=== PATIENT | male | born 1960 | race Caucasian/White ===

== ENCOUNTER 2018-01-30 07:28 | Emergency (ER) | payer BC, SELFPAY ==
[2018-01-30 07:30] VITALS: BP 151/92; PULSE 79; RESP 18; TEMP 36.4; O2SAT 98
--- NOTE | 2018-01-30 07:40 | W.ED.GENAD ---
Discharge Plan Disposition Patient Disposition: HOME Condition: Good Discharge Details Chief Complaint: RespSymp Clinical Impression: Cough Primary Care Provider: Edwin Astudillo ED Provider: Richmond Cronin Home Meds and New Rx's Prescriptions: New doxycycline hyclate 100 mg tablet 100 mg PO BID Qty: 14 RF: 0 Continue prednisone 20 mg tablet 40 mg PO DAILY Qty: 8 RF: 0 omeprazole 40 MG capsule,delayed release(DR/EC) 40 mg PO BID 90 Days Qty: 180 RF: 3 Discharge Instructions Instructions: Acute Cough (ED) Medical Decision Making 57 yo male who denies chronic medical problems, quit smoking over 30 years ago, who comes in with cough for 2 weeks. Was put on steroids and took 3 days of this but felt wired and couldn't sleep so stopped. Denies travel, fevers or other symptoms. He has clear lungs and is speaking in full setntences on exam, does have small crackle when rll is auscultate. Suspect viral uri but given lung exam findings will initiate abx to cover for possible cap. Advised f/u with pcp if not improving next week and return precautions given Differential Diagnosis cough, uri, pna HPI General Mode of arrival: ambulatory. Date/Time Provider Initiated Documentation: 01/30/18 07:32. Limitations to Documentation: no limitations. Information obtained by: patient. History of Present Illness 57 year old M presents to the emergency department with the chief complaint of cough, described as moderate, with intensity rated at 5. Quality is described as aching, Patient started experiencing this week(s) (2) and it has been constant. No relieving factors improve symptom(s), No exacerbating factors reported . Patient notes no other symptoms.. Related Data Home Medications Medication Instructions Recorded Confirmed omeprazole 40 mg PO BID 90 Days #180 tab-cap 11/24/17 01/30/18 prednisone 20 mg tablet 40 mg PO DAILY #8 tab 01/24/18 01/30/18 doxycycline hyclate 100 mg PO BID #14 tab 01/30/18 Previous Rx's Medication Instructions Recorded omeprazole 40 mg PO BID 90 Days #180 tab-cap 11/24/17 prednisone 20 mg tablet 40 mg PO DAILY #8 tab 01/24/18 doxycycline hyclate 100 mg PO BID #14 tab 01/30/18 Allergies Allergy/AdvReac Type Severity Reaction Status Date / Time No Known Allergies Allergy Verified 01/30/18 07:37 General Stated Complaint: RespSymp MARTITA: 4 Review of Systems Review of Systems All systems reviewed & are unremarkable except as noted in HPI and below Constitutional Denies chills and Denies fever(s) ENT Denies change in voice Cardiovascular Denies chest pain and Denies dyspnea Respiratory Denies dyspnea Gastrointestinal Denies abdominal pain, Denies nausea and Denies vomiting Genitourinary Denies dysuria Musculoskeletal Denies joint swelling Integumentary/Breasts Denies rash Endocrine Denies cold intolerance [facility] Family History Mother Personal history of malignant neoplasm Father Heart disease Myocardial infarction Maternal Uncle Personal history of malignant neoplasm Maternal Cousin Personal history of malignant neoplasm Sister No problems noted. Brother No problems noted. Grandfather No problems noted. Grandfather No problems noted. Grandmother No problems noted. Grandmother No problems noted. Maternal Aunt Personal history of malignant neoplasm Son No problems noted. Daughter No problems noted. Daughter No problems noted. Medical History Eczema Family history of colon cancer GERD (gastroesophageal reflux disease) Insomnia chronic back pain tubular adenomas Social History household members: spouse current occupational status: employed current occupation: [employer] pets and animals: Yes pets and animals: dog(s) frequency: 3-4 times per week duration: 45-60 minutes/day Smoking/Tobacco Use Status: Former Tobacco Use alcohol intake: never substance use type: does not use shannon/yarsanism: No preference special shannon needs: No seatbelt use: always helmet use: Yes water heater temp set < 120 deg: Yes Surgical History Amputation Arthroplasty of knee Colonoscopy - IV Sedation Colonoscopy - MAC (07/25/17) EGD - MAC (07/25/17) Exam Const General: no acute distress Orientation: alert HENMT Head: normal to inspection Ears: external ears normal General nose exam: external nose normal Mouth: moist mucous membranes Eyes General: appearance normal, both eyes and all related structures Neck Neck: normal visual inspection Resp Effort & Inspection: normal respiratory effort and able to speak in complete sentences Cardio Rate: regular rate Skin General skin exam: no rashes or lesions noted Neuro General: alert and oriented x3 Extrem General: normal to inspection Psych Mental Status: mental status grossly normal Course Vital Signs Temperature 36.4 C L 01/30/18 07:30 Pulse 79 01/30/18 07:30 Respiratory Rate 18 01/30/18 07:30 Blood Pressure 151/92 H 01/30/18 07:30 Pulse Oximetry 98 01/30/18 07:30 Temperature 36.4 C L 01/30/18 07:30 Temperature Source Skin 01/30/18 07:30 Pulse 79 01/30/18 07:30 Respiratory Rate 18 01/30/18 07:30 Respiratory Effort 01/30/18 07:35 Respiratory Depth Normal 01/30/18 07:35 Blood Pressure 151/92 H 01/30/18 07:30 Blood Pressure Position Sitting 01/30/18 07:30 Pulse Oximetry 98 01/30/18 07:30 Oxygen Delivery Method Room Air 01/30/18 07:30 Oxygen Flow Rate 0 01/30/18 07:30 Pain Level 4 01/30/18 07:30
--- NOTE | 2018-01-30 07:43 | ED.GENADUL_ITS ---
Discharge Plan Disposition Patient Disposition: HOME Condition: Good Discharge Details Chief Complaint: RespSymp Clinical Impression: Cough Primary Care Provider: Edwin Astudillo ED Provider: Richmond Cronin Home Meds and New Rx's Prescriptions: New doxycycline hyclate 100 mg tablet 100 mg PO BID Qty: 14 RF: 0 Continue prednisone 20 mg tablet 40 mg PO DAILY Qty: 8 RF: 0 omeprazole 40 MG capsule,delayed release(DR/EC) 40 mg PO BID 90 Days Qty: 180 RF: 3 Discharge Instructions Instructions: Acute Cough (ED) Medical Decision Making 57 yo male who denies chronic medical problems, quit smoking over 30 years ago, who comes in with cough for 2 weeks. Was put on steroids and took 3 days of this but felt wired and couldn't sleep so stopped. Denies travel, fevers or other symptoms. He has clear lungs and is speaking in full setntences on exam, does have small crackle when rll is auscultate. Suspect viral uri but given lung exam findings will initiate abx to cover for possible cap. Advised f/u with pcp if not improving next week and return precautions given Differential Diagnosis cough, uri, pna HPI General Mode of arrival: ambulatory . Date/Time Provider Initiated Documentation: 01/30/18 07:32 . Limitations to Documentation: no limitations . Information obtained by: patient . History of Present Illness 57 year old M presents to the emergency department with the chief complaint of cough, described as moderate, with intensity rated at 5. Quality is described as aching, Patient started experiencing this week(s) (2) and it has been constant. No relieving factors improve symptom(s), No exacerbating factors reported . Patient notes no other symptoms.. Related Data Home Medications Medication Instructions Recorded Confirmed omeprazole 40 mg PO BID 90 Days #180 tab-cap 11/24/17 01/30/18 prednisone 20 mg tablet 40 mg PO DAILY #8 tab 01/24/18 01/30/18 doxycycline hyclate 100 mg PO BID #14 tab 01/30/18 Previous Rx's Medication Instructions Recorded omeprazole 40 mg PO BID 90 Days #180 tab-cap 11/24/17 prednisone 20 mg tablet 40 mg PO DAILY #8 tab 01/24/18 doxycycline hyclate 100 mg PO BID #14 tab 01/30/18 Allergies Allergy/AdvReac Type Severity Reaction Status Date / Time No Known Allergies Allergy Verified 01/30/18 07:37 General Stated Complaint: RespSymp MARTITA: 4 Review of Systems Review of Systems All systems reviewed & are unremarkable except as noted in HPI and below Constitutional Denies chills and Denies fever(s) ENT Denies change in voice Cardiovascular Denies chest pain and Denies dyspnea Respiratory Denies dyspnea Gastrointestinal Denies abdominal pain, Denies nausea and Denies vomiting Genitourinary Denies dysuria Musculoskeletal Denies joint swelling Integumentary/Breasts Denies rash Endocrine Denies cold intolerance [facility] Family History Mother Personal history of malignant neoplasm Father Heart disease Myocardial infarction Maternal Uncle Personal history of malignant neoplasm Maternal Cousin Personal history of malignant neoplasm Sister No problems noted. Brother No problems noted. Grandfather No problems noted. Grandfather No problems noted. Grandmother No problems noted. Grandmother No problems noted. Maternal Aunt Personal history of malignant neoplasm Son No problems noted. Daughter No problems noted. Daughter No problems noted. Medical History Eczema Family history of colon cancer GERD (gastroesophageal reflux disease) Insomnia chronic back pain tubular adenomas Social History household members: spouse current occupational status: employed current occupation: [employer] pets and animals: Yes pets and animals: dog(s) frequency: 3-4 times per week duration: 45-60 minutes/day Smoking/Tobacco Use Status: Former Tobacco Use alcohol intake: never substance use type: does not use shannon/yazdanism: No preference special shannon needs: No seatbelt use: always helmet use: Yes water heater temp set < 120 deg: Yes Surgical History Amputation Arthroplasty of knee Colonoscopy - IV Sedation Colonoscopy - MAC (07/25/17) EGD - MAC (07/25/17) Exam Const General: no acute distress Orientation: alert HENMT Head: normal to inspection Ears: external ears normal General nose exam: external nose normal Mouth: moist mucous membranes Eyes General: appearance normal, both eyes and all related structures Neck Neck: normal visual inspection Resp Effort & Inspection: normal respiratory effort and able to speak in complete sentences Cardio Rate: regular rate Skin General skin exam: no rashes or lesions noted Neuro General: alert and oriented x3 Extrem General: normal to inspection Psych Mental Status: mental status grossly normal Course Vital Signs Temperature 36.4 C L 01/30/18 07:30 Pulse 79 01/30/18 07:30 Respiratory Rate 18 01/30/18 07:30 Blood Pressure 151/92 H 01/30/18 07:30 Pulse Oximetry 98 01/30/18 07:30 Temperature 36.4 C L 01/30/18 07:30 Temperature Source Skin 01/30/18 07:30 Pulse 79 01/30/18 07:30 Respiratory Rate 18 01/30/18 07:30 Respiratory Effort 01/30/18 07:35 Respiratory Depth Normal 01/30/18 07:35 Blood Pressure 151/92 H 01/30/18 07:30 Blood Pressure Position Sitting 01/30/18 07:30 Pulse Oximetry 98 01/30/18 07:30 Oxygen Delivery Method Room Air 01/30/18 07:30 Oxygen Flow Rate 0 01/30/18 07:30 Pain Level 4 01/30/18 07:30
== END 2018-01-30 07:49 | disposition home or self-care (01) ==
LOC: ER 08:05
PROVIDERS: Emergency Provider Emergency Medicine; PCP Family Medicine
DX: R05 Cough (principal); Z87.891 Personal history of nicotine dependence
CPT/HCPCS: 99283

== ENCOUNTER 2018-03-06 17:04 | Outpatient (CLI) | payer BC, SELFPAY ==
--- NOTE | 2018-03-06 15:35 | DI.RAD_ITS ---
SYMPTOMS/DIAGNOSIS: 7 WEEKS OF WHEEZING, COUGH, DYSPNEA, RESPIRATORY ABNORMALITIES, R06.00, R06.89 PA AND LATERAL CHEST: Comparison is made with May,. The heart size is normal. The aorta is mildly tortuous. The lungs appear clear throughout. IMPRESSION: Negative chest x-ray.
== END 2018-03-06 17:24 ==
PROVIDERS: PCP Family Medicine; Visit Provider Family Medicine
DX: R06.2 Wheezing (principal); R05 Cough; R06.09 Other forms of dyspnea
CPT/HCPCS: 71046

== ENCOUNTER 2020-05-31 07:51 | Emergency (ER) | payer BC, SELFPAY ==
[2020-05-31 08:03] VITALS: BP 162/92; PULSE 62; RESP 16; TEMP 36.7; O2SAT 99
[2020-05-31 08:14] LABS: Bilirubin Negative (Negative); Blood Moderate (Negative); Clarity Clear (Clear); Glucose Negative (Negative); Ketones Negative (Negative); Leukocyte Esterase Negative (Negative); Nitrite Negative (Negative); Specific Gravity >= 1.030 (1.005-1.025); Urobilinogen 0.2 EU/dL (Up TO 0.2); pH 5.5 (5-8)
--- NOTE | 2020-05-31 08:16 | W.ED.GENAD ---
Discharge Plan Disposition Patient Disposition: HOME Condition: Stable Discharge Details Clinical Impression: Kidney stone Primary Care Provider: Rodolfo Funk ED Provider: Garrick Holder Home Meds and New Rx's Prescriptions: New naproxen [Naprosyn] 500 mg tablet 500 mg PO BID Qty: 14 RF: 0 tamsulosin [Flomax] 0.4 mg capsule 0.4 mg PO DAILY 7 Days Qty: 7 RF: 0 Continued levofloxacin 500 mg tablet 500 mg PO DAILY Qty: 10 RF: 0 Flovent HFA 110 mcg/actuation HFA aerosol inhaler 2 puff IH BID PRNRF: 0 albuterol sulfate [ProAir HFA] 90 mcg/actuation HFA aerosol inhaler 2 puff IH Q6H PRN (Reason: shortness of breath or wheezing) Qty: 18 RF: 1 escitalopram oxalate 10 mg tablet 10 mg PO DAILY Qty: 90 RF: 4 omeprazole 40 mg capsule,delayed release(DR/EC) 40 mg PO BID Qty: 180 RF: 4 Discharge Instructions Instructions: Kidney Stones (ED) Additional Instructions: Flomax and Naprosyn as directed. Plenty of fluids. Please watch for new or worsening symptoms and return to the ER for any concerns. I have placed you on the urology list, please contact the office of Dr. Lopez tomorrow to set up prompt outpatient reevaluation. Referrals: Jarrell Lopez MD [ [facility] STAFF PHYSICIAN] - Medical Decision Making 59-year-old gentleman presents with month-long history of right testicle-scrotal discomfort now radiating up to his flank and lower abdomen. He was seen by his primary care provider and placed on Levaquin for potential epididymitis. Finished his antibiotic course with no relief in symptoms. Reports hematuria a couple weeks ago, continuation of dysuria and urinary frequency. Clinically he appears well, nontoxic. Symptoms present for 1 month, less likely torsion. Please obtaining urinalysis, CBC, CMP lipase, and IV access. Differential includes but not excluded to UTI, pyelonephritis, renal stone, appendicitis, musculoskeletal injury, STD Urinalysis reveals greater than 50 red cells, laboratory values otherwise unremarkable. Patient given [address] imaging of abdomen and pelvis without contrast obtained and read by radiology as a 3 mm stone is present within the right UVJ resulting in mild hydronephrosis, edematous swelling of the right kidney, and perinephritic-periureteral fat stranding. Made patient aware of CT findings. After Toradol patient is asymptomatic. Will provide prescription for Naprosyn, Flomax, 1st dose of Flomax given now. Will place on the urology list and have the patient contact Dr. Lopez tomorrow for prompt outpatient reevaluation. Patient was given strict return precautions. He has no additional questions or concerns and is comfortable with this plan. We initially talked about setting up an ultrasound tomorrow of his scrotum however given his 3 mm stone likely causing his symptoms, urology outpatient follow-up, will hold off on any ultrasound. Patient believes this to be a reasonable plan. Medical Records Medical records reviewed: Yes I reviewed the patient's medical records. Lab Data Lab results reviewed: Yes I reviewed the patient's lab results. Lab results narrative: Laboratory Tests Range/Units 05/31/20 05/31/20 05/31/20 08:07 09:00 09:00 WBC (4.4-10.8) 10^3/uL 6.99 RBC (4.36-5.78) 10^6/uL 5.43 Hgb (13.5-17.5) g/dL 15.9 Hct (40.0-50.0) % 48.5 MCV (80-95) fL 89.3 MCH (27.0-33.0) pg 29.3 MCHC (32.0-36.0) % 32.8 RDW (11.8-14.1) % 13.0 Plt Count (130-400) 10^3/uL 205 MPV (8.0-11.0) fL 10.5 Immature Gran % 0.3 Neutrophils % 70.9 Lymphocytes % 19.2 Monocytes % 7.6 Eosinophils % 1.3 Basophils % 0.7 Nucleated RBC % % 0 Absolute Neutrophils (1.2-6.7) 10^3/uL 4.96 Absolute Lymphocytes (1.2-3.4) 10^3/uL 1.34 Absolute Monocytes (0.1-0.8) 10^3/uL 0.53 Absolute Eosinophils (0.0-0.7) 10^3/uL 0.09 Absolute Basophils (0.0-0.2) 10^3/uL 0.05 Sodium (136-145) mmol/L 141 Potassium (3.5-5.1) mmol/L 4.8 Chloride (98-107) mmol/L 105 Carbon Dioxide (21.0-32.0) mmol/L 29.1 Anion Gap (3-11) mmol/L 6.9 BUN (7-18) mg/dL 18 Creatinine (0.70-1.30) mg/dL 1.0 Estimated GFR/1.73 m2 (mL/min/1.73m2) >= 60.00 Glucose (74-106) mg/dL 113 H Calcium (8.5-10.1) mg/dL 9.1 Total Bilirubin (0.2-1.0) mg/dL 1.0 AST (15-37) U/L 17 ALT (16-63) U/L 35 Alkaline Phosphatase (46-116) U/L 82 Total Protein (6.4-8.2) g/dL 7.9 Albumin (3.4-5.0) g/dL 4.0 Lipase (73-393) U/L 241 Urine Color (Yellow) Yellow Urine Clarity (Clear) Clear Urine pH (5-8) 5.5 Ur Specific [place] (1.005-1.025) >= 1.030 H Urine Protein (Negative) mg/dL 30 H Urine Ketones (Negative) mg/dL Negative Urine Blood (Negative) Moderate H Urine Nitrite (Negative) Negative Urine Bilirubin (Negative) Negative Urine Urobilinogen (Up TO 0.2) EU/dL 0.2 Ur Leukocyte Esterase (Negative) Negative Urine RBC (0-2) HPF >50 H Urine WBC (0-5) HPF 0-2 Ur Epithelial Cells (Negative) HPF Negative Urine Crystals (Negative) HPF Negative Urine Bacteria (Negative) HPF Few Urine Casts (Negative) LPF Negative Urine Mucus (Negative) Moderate Urine Other (Negative) Rare spermatozoa Ur Culture Indicated? No Urine Glucose (Negative) mg/dL Negative HPI General Mode of arrival: ambulatory. Date/Time Provider Initiated Documentation: 05/31/20 08:15. Limitations to Documentation: no limitations. Information obtained by: patient. HPI Narrative: This is a 59-year-old gentleman, past medical history of diabetes, depression, GERD, presents to the ER for evaluation. He states that he has had a right testicle pain for 1 month, urinary frequency and dysuria. Noticed blood in his urine early in the course of his discomfort but that has resolved. He gets occasional shooting pains up to his right lower abdomen and flank, this is increasing in nature. Nothing really makes his symptoms better or worse. He was seen by his primary care provider, placed on a 10-day course of Levaquin, symptoms have not resolved. She denies recent illness or trauma. Denies fever, chest pain, back pain, nausea, vomiting, penis pain, rash in his groin, penile discharge, diarrhea, constipation. He is sexually active with 1 person, no suspicion for STD. He reports at times he has no pain however it is there more often than not and occasionally sharp and severe. Has not taken any [id number] medications for his symptoms. Related Data Home Medications Medication Instructions Recorded Confirmed albuterol sulfate 90 mcg/actuation 2 puff IH Q6H PRN #18 gm 02/08/18 05/31/20 aerosol inhaler fluticasone propionate 110 2 puff IH BID PRN gm 05/11/18 05/31/20 mcg/actuation HFA aerosol inhaler escitalopram oxalate 10 mg tablet 10 mg PO DAILY #90 tab 03/07/19 05/31/20 omeprazole 40 mg capsule,delayed 40 mg PO BID #180 tab-cap 03/07/19 05/31/20 release levofloxacin 500 mg tablet 500 mg PO DAILY #10 tab 05/20/20 05/20/20 naproxen [Naprosyn] 500 mg PO BID #14 tab 05/31/20 tamsulosin [Flomax] 0.4 mg PO DAILY 7 Days #7 cap 05/31/20 Previous Rx's Medication Instructions Recorded albuterol sulfate 90 mcg/actuation 2 puff IH Q6H PRN #18 gm 02/08/18 aerosol inhaler escitalopram oxalate 10 mg tablet 10 mg PO DAILY #90 tab 03/07/19 omeprazole 40 mg capsule,delayed 40 mg PO BID #180 tab-cap 03/07/19 release levofloxacin 500 mg tablet 500 mg PO DAILY #10 tab 05/20/20 naproxen [Naprosyn] 500 mg PO BID #14 tab 05/31/20 tamsulosin [Flomax] 0.4 mg PO DAILY 7 Days #7 cap 05/31/20 Allergies Allergy/AdvReac Type Severity Reaction Status Date / Time No Known Allergies Allergy Verified 05/31/20 08:12 General Stated Complaint: Urinary MARTITA: 3 Review of Systems Constitutional Constitutional: Reports fatigue, Denies fever(s) and Denies weakness Cardiovascular Cardiovascular: Denies chest pain and Denies dyspnea Respiratory Respiratory: Denies cough and Denies dyspnea Gastrointestinal Gastrointestinal: Reports abdominal pain, Denies constipation, Denies diarrhea, Denies nausea and Denies vomiting Genitourinary Genitourinary: Reports hematuria, Reports dysuria, Reports testicular pain and Reports urinary urgency Musculoskeletal Musculoskeletal: Denies back pain, Denies numbness and Denies tingling Integumentary/Breasts Skin/Breast: Denies rash Neurologic Neurologic: Denies numbness, Denies tingling and Denies weakness Endocrine Endocrine: Reports fatigue PFSH Medical History chronic back pain Eczema Family history of colon cancer GERD (gastroesophageal reflux disease) Insomnia tubular adenomas Surgical History Amputation 02/26/14; TIP OF LEFT INDEX FINGER; DR. DICK Arthroplasty of knee Colonoscopy - IV Sedation 2009- adenomatous polyp 2011- no polyps Colonoscopy - MAC (07/25/17) EGD - MAC (07/25/17) Family History Mother , 51 AGE Cancer Father , 76 Heart disease Myocardial infarction Maternal Uncle Colon cancer Maternal Cousin Colon cancer Sister No problems noted. Brother No problems noted. Maternal Grandfather No problems noted. Paternal Grandfather No problems noted. Maternal Grandmother No problems noted. Paternal Grandmother No problems noted. Maternal Aunt Colon cancer Brother No problems noted. Brother No problems noted. Son , age 6 weeks No problems noted. Daughter No problems noted. Social History Smoking/Tobacco Use Status: Former Tobacco Use tobacco type: cigarettes Quit Date: 03/27/84 Second Hand Exposure: Yes Smoking risk assessment performed?: Yes Alcohol Intake: former Drug use: Never Substance use type: does not use Caregiver/Support person: No Household members: spouse Housing: house Do you need help understanding health information?: Never current occupation: S[employer] EM[employer] Pets and animals: No Sexually active: Yes Do you think of yourself as: straight/heterosexual Current gender identity: male What is your relationship status?: How often do you talk on the phone with friends or family?: never How often do you get together with friends or relatives?: never How often do you attend amish or jew services?: 1-3 times per year Do you belong to any clubs or organized social groups?: no Panel score (0-1 are the most socially isolated patients): 1 What type of physical activity do you participate in: decline to answer Duration: decline to answer Frequency: decline to answer Мария/Episcopalian: No preference Special мария needs: No Seatbelt use: sometimes Helmet use: Yes Drive intox or ride w/intox rental car ferry driver: No Water heater temp set <120 deg: Yes Do you feel safe at home: Yes Do you feel safe in your relationship?: Yes Exam Const General: cooperative, healthy appearing, comfortable and no acute distress Orientation: alert, awake and oriented x3 HENMT Head: normal to inspection, normocephalic and atraumatic Eyes General: appearance normal, both eyes and all related structures Conjunctivae: conjunctivae normal Sclera: sclerae normal Neck Neck: normal visual inspection, full ROM, trachea midline and supple Resp Effort & Inspection: normal respiratory effort and able to speak in complete sentences Auscultation: clear to auscultation bilaterally Cardio Rate: regular rate Rhythm: regular rhythm GI Inspection: normal to inspection Palpation: soft, not firm, no guarding, no pulsatile masses and nontender Auscultation: normal bowel sounds Male General Exam: Yes normal external exam Penis: normal penis Meatus: meatus normal Scrotum: scrotum normal Testes: normal, no masses, no testicular mass, no testicular swelling and no testicular tenderness Other: I do not appreciate a hernia with the patient standing or supine Back/Spine/Pelvis Back: no CVA tenderness and No back tenderness Skin General skin exam: no rashes or lesions noted Neuro General: patient alert, patient awake, moves all extremities and no focal motor deficits Cognition: normal cognition Speech: speech normal Sensory Exam: no sensory deficits noted Extrem General: normal to inspection and full ROM Psych Appearance: grossly normal Mental Status: mental status grossly normal Course Vital Signs Vital signs: Vital Signs Temperature 36.7 C 05/31/20 08:03 Pulse 62 05/31/20 08:03 Respiratory Rate 16 05/31/20 08:03 Blood Pressure 162/92 H 05/31/20 08:03 Pulse Oximetry 99 05/31/20 08:03 Temperature 36.7 C 05/31/20 08:03 Temperature Source Temporal Artery Scan 05/31/20 08:03 Pulse 62 05/31/20 08:03 Respiratory Rate 16 05/31/20 08:03 Respiratory Effort Non-Labored 05/31/20 08:10 Blood Pressure 162/92 H 05/31/20 08:03 Blood Pressure Position Sitting 05/31/20 08:03 Pulse Oximetry 99 05/31/20 08:03 Oxygen Delivery Method Room Air 05/31/20 08:03 Oxygen Flow Rate 0 05/31/20 08:03 Pain Level 5 05/31/20 08:11
[2020-05-31 08:22] LABS: Bacteria Few HPF (Negative); C & S Indicated? No; Casts Negative LPF (Negative); Crystals Negative HPF (Negative); Epithelial Cells Negative HPF (Negative); Mucus Moderate (Negative); RBC >50 HPF (0-2); WBC 0-2 HPF (0-5)
[2020-05-31 09:11] LABS: Abs Immature Grans 0.02 10^3/uL (0.0-0.06); Absolute Basophil Count 0.05 10^3/uL (0.0-0.2); Absolute Eosinophil Count 0.09 10^3/uL (0.0-0.7); Absolute Lymphocyte Count 1.34 10^3/uL (1.2-3.4); Absolute Monocyte Count 0.53 10^3/uL (0.1-0.8); Absolute Neutrophil Count 4.96 10^3/uL (1.2-6.7); Basophils % 0.7; Eosinophils % 1.3; HCT 48.5 % (40.0-50.0); HGB 15.9 g/dL (13.5-17.5); Immature Grans % 0.3; Lymphocytes % 19.2; MCH 29.3 pg (27.0-33.0); MCHC 32.8 % (32.0-36.0); MCV 89.3 fL (80-95); MPV 10.5 fL (8.0-11.0); Monocytes % 7.6; Neutrophils % 70.9; Nucleated RBC 0 %; Platelet Count 205 10^3/uL (130-400); RBC 5.43 10^6/uL (4.36-5.78); RDW-SD 42.3 fL; WBC 6.99 10^3/uL (4.4-10.8)
[2020-05-31 09:24] LABS: ALT 35 U/L (16-63); AST 17 U/L (15-37); Alkaline Phosphatase 82 U/L (46-116); Anion Gap 6.9 mmol/L (3-11); BUN 18 mg/dL (7-18); CO2 29.1 mmol/L (21.0-32.0); Calcium 9.1 mg/dL (8.5-10.1); Chloride 105 mmol/L (98-107); Glucose 113 mg/dL (74-106); Lipase 241 U/L (73-393); Potassium 4.8 mmol/L (3.5-5.1); Sodium 141 mmol/L (136-145); Total Protein 7.9 g/dL (6.4-8.2)
[2020-05-31] MEDS: Ketorolac 30 MG/ML VIAL IVP (09:56)
--- NOTE | 2020-05-31 10:00 | DI.CT_ITS ---
EXAM: CT ABDOMEN PELVIS W CLINICAL HISTORY: R testicle pain x 1 month, right flank pain now TECHNIQUE: Imaging Protocol: Axial computed tomography images with coronal and sagittal reformatted images were created and reviewed CONTRAST MATERIAL: Intravenous: Omnipaque 350 Contrast volume:100 mL Oral: No COMPARISON: CT ABD PELVIS WITH CONTRAST from 04/04/2011 FINDINGS: ABDOMEN: Lung Bases: Normal where visualized. There is a small hiatal hernia. Liver: Normal density. No measurable mass. Portal, Superior Mesenteric, and Splenic Veins: Unremarkable. Gallbladder and Biliary Tract: No radiodense calculus or dilation. Pancreas: Normal density, no abnormal calcifications or inflammatory process. Spleen: Normal. Adrenals: No masses seen. Kidneys: Normal size, contour and axis. There is a 3 mm stone in the intramural portion of the distal right ureter causing mild to moderate hydronephrosis and delayed right nephrogram. Tiny hypodensiti es are seen in the right kidney. They are too small for further characterization but likely reflect small cysts. Abdominal Aorta: Abdominal portion non-dilated. Mild atherosclerosis. Bowel: No obstruction or bowel wall thickening. Appendix is unremarkable. Diverticulosis in the sigmo id colon but no evidence of acute diverticulitis. Peritoneal Cavity: No ascites, collection or mesenteric inflammatory response. No free air. Lymph Nodes: Within normal limits. Bones: Within normal limits for the patient's age. Soft Tissues: Bilateral fat containing inguinal hernias. Small fat containing umbilical hernia. PELVIS: Bladder: The urinary bladder is incompletely distended. There is thickening of the wall diffusely wh ich likely reflects under distension. Infectious or inflammatory cystitis cannot be entirely exclude d. Please correlate clinically. Reproductive Organs: Unremarkable as visualized. Lymph Nodes: Within normal limits. Bones: Within normal limits for the patient's age. IMPRESSION: 3 mm stone at the right UVJ causing mild to moderate hydroureteronephrosis. RADIATION DOSE DELIVERED: 1,264.96mGy.cm Total DLP DATA REPOSITORY: All CT scans at this facility are submitted to the National Radiology Data Registry (NRDR) Dose Index Registry (DIR) with the [employer] (ACR). RADIATION OPTIMIZATION: All CT scans at this facility use at least one of these dose optimization te chniques: automated exposure control; mA and/or kV adjustment per patient size (includes targeted exa ms where dose is matched to clinical indication); or iterative reconstruction.
[2020-05-31] MEDS: Omnipaque 350 MG/ML 50 ML BTL IJ ×2 (10:04→10:31)
[2020-05-31] MEDS: Normal Saline - Diluent 50 ML VIAL IV (10:05)
--- NOTE | 2020-05-31 10:14 | DI.VRAD_ITS ---
Addendum created by Faisal Mahajan MD on 05/31/2020 10:28:39 AM EST: There is a typographical error in the report. The following sentence should replace the first sentence of the Kidneys and Ureters section as well as the entire IMPRESSION secion. A 3 mm stone is present within the right ureterovesicular junction resulting in mild hydroureteronephrosis, edematous swelling of the right kidney, and perinephric/periureteral fat stranding. Initial report created on 05/31/2020 10:14:36 AM EST: PROCEDURE INFORMATION: Exam: CT Abdomen And Pelvis With Contrast Exam date and time: 05/31/2020 9:49 AM Age: 59 years old Clinical indication: Abdominal tenderness; Patient HX: Right testicle pain, x 1 month right flank pain TECHNIQUE: Imaging protocol: Computed tomography of the abdomen and pelvis with contrast. Contrast material: OMNIPAQUE 350; Contrast volume: 100 ml; Contrast route: INTRAVENOUS (IV); COMPARISON: No relevant prior studies available. FINDINGS: Liver: Mild hepatic steatosis. Gallbladder and bile ducts: Normal. No calcified stones. No ductal dilation. Pancreas: Normal. No ductal dilation. Spleen: Normal. No splenomegaly. Adrenal glands: Normal. No mass. Kidneys and ureters: A 3 mm stone is present within bowel right ureterovesicular junction resulting in mild hydroureteronephrosis, edematous swelling of the right kidney, and perinephric/periureteral fat stranding. Delayed right nephrogram. Stomach and bowel: Colonic diverticulosis. Appendix: A normal appendix is identified. Intraperitoneal space: Unremarkable. No free air. No significant fluid collection. Vasculature: Atherosclerotic disease of the abdominal aorta without aneurysm. Lymph nodes: Unremarkable. No enlarged lymph nodes. Urinary bladder: Unremarkable as visualized. Reproductive: Prostate is enlarged. Bones/joints: Unremarkable. No acute fracture. Soft tissues: Unremarkable. IMPRESSION: A 3 mm stone is present within bowel right ureterovesicular junction resulting in mild hydroureteronephrosis, edematous swelling of the right kidney, and perinephric/periureteral fat stranding. Dictated and Authenticated by: Faisal Mahajan MD. Ordering:MANISH Mccauley MD
--- NOTE | 2020-05-31 10:37 | NUR.NOTE ---
Nursing Note: Referral faxed to [facility] for follow up for left 3mm kidney stone. Kae Joseph
[2020-05-31] MEDS: Tamsulosin 0.4 MG CAPCR PO (10:52)
[2020-05-31 10:55] VITALS: BP 143/95; PULSE 62; RESP 18; O2SAT 98
[2020-05-31 11:01] VITALS: BP 143/95; PULSE 62; RESP 18; TEMP 36.5; O2SAT 98
[2020-06-01 15:28] LABS: Chlamydia Result Negative (Negative); GC Result Negative (Negative)
== END 2020-05-31 11:02 | disposition home or self-care (01) ==
PROVIDERS: Emergency Provider Physician Assistant; PCP Family Medicine
DX: N13.2 Hydronephrosis with renal and ureteral calculous obstruction (principal)
CPT/HCPCS: 36415; 80053; 83690; 87491; 87591; 96374; 99285; 74177; 81003; 81015; 85025; 99284; J1885; Q9967

== ENCOUNTER 2020-07-31 03:35 | Outpatient (CLI) | payer BC, SELFPAY ==
[2020-07-31 10:16] LABS: Source Nasal/Nares
[2020-07-31 12:22] LABS: COVID-19 PCR Negative (Negative)
== END 2020-07-31 03:36 | disposition home or self-care (01) ==
LOC: LBO 03:35
PROVIDERS: PCP Family Medicine; Visit Provider Surgery
DX: Z20.822 Contact with and (suspected) exposure to COVID-19 (principal); Z01.818 Encounter for other preprocedural examination
CPT/HCPCS: 87635

== ENCOUNTER 2020-08-03 09:05 | Day surgery (SDC) | payer BC, SELFPAY ==
--- NOTE | 2020-08-03 06:41 | W.PM.ENDDOP ---
Date of service: 08/03/20 Time of Service: :56 Endoscopy Report DATE OF PROCEDURE: 08/03/20 PRE-OP DIAGNOSIS: GERD, Hx of polyps, Change in bowel habits POST-OP DIAGNOSIS: other (Reflux esophagitis, ? Muller's, colorectal polyps) PROCEDURE: 1. EGD with biopsies 2. Colonoscopy with polypectomy SURGEON: Michelle Gaffney ANESTHESIA TYPE: General:No Airway (ASA 2/ Genesis Olivas, JYOTI) ESTIMATED BLOOD LOSS: 3 PATHOLOGY: other (AScending colon polyps x2, Antrum bx, GE junction bx) COMPLICATIONS: None DISPOSITION: same day INDICATIONS: Mr. Watt is a pleasant 59-year-old gentleman who is here today to discuss a repeat colonoscopy and upper endoscopy. Over the last 2 months he has had changes in bowel habits. His bowels go from soft to constipated. He also feels like he is leaking stool at times. He does not feel like he is emptying his bowels completely. He is also having breakthrough heartburn and reflux symptoms despite the continued use of omeprazole 40 mg twice daily. He has not had any unintentional weight loss, melena or hematochezia. We discussed upper endoscopy and colonoscopy using a pamphlet with pictures. We reviewed the prep. Risks, benefits and alternatives were reviewed with him. Risks, benefits and complications have been reviewed. Complications include but are not limited to bleeding, pain, perforation, missed small lesion/polyp, sore throat, aspiration and adverse reaction to the medications. Questions were entertained and answered to their satisfaction and they wished to proceed. No guarantees were given or implied. COVID-19 testing explained to the patient. Reason for test reviewed. Quarantine per state requirements reviewed with patient. Patient understands and agrees to testing. Proceed with colonoscopy and upper endoscopy under sedation. (2) Bowel habit changes: (3) Family history of colon cancer: (4) Hx of adenomatous colonic polyps: PREP: Miralax/Dulcolax PROCEDURE START TIME: :56 PROCEDURE END TIME: 10:31 COLONOSCOPY RETRACTION TIME: 17 minutes FINDINGS: Upper- mild gastric inflammation, reflux esophagitis Lower- 2 sessile polyps in the ascending colon PROCEDURE DESCRIPTION: After informed consent was obtained the patient was take to the procedure room and placed in a supine position. Monitors were applied and a time out was done. The patients name, date of , procedure type, allergies to medications and metal in their body was reviewed. A bite block was placed and the patient was sedated. Once sedated and comfortable the gastroscope was advanced through the oropharynx which was grossly normal into the esophagus. The proximal and mid-esophagus were normal. In the distal esophagus there was inflammation noted. The scope was advanced into the stomach and through the pylorus into the 3rd portion of the duodenum. The duodenum was noted to be normal. The scope was retracted back into the stomach. There was mild inflammation noted in the antrum. Biopsies were done to rule out H. pylori. There were no ulcers. The scope was retro-flexed. The cardia and fundus were noted to be normal. There was no hiatal hernia noted. The scope was retracted back into the esophagus and biopsies were done of the GE junction to rule out Muller's. The Z line was regular. The GE junction was at 35 cm. While the patient was still sedated they were placed in a left decubitous position. A rectal exam was done. External exam was normal. Internal exam revealed a normal sphincter tone and no palpable masses. The prostate felt mildly enlarged but smooth. The scope was then introduced and retro-flexed. No internal hemorrhoids, masses or polyps were identified on retroflexion. The scope was then advanced to the cecum without difficulty. The ileocecal valve and appendiceal orifice were identified. The prep was good. The scope was then slowly retracted over 17 minutes back into the rectum. Polyps were removed with with hot snare in the ascending colon x2. There was no diverticulosis noted in the colon. The scope was removed and the patient was woken up and taken back to Same day surgery in stable condition. The patient tolerated the procedure well and there were no immediate complications. Follow up: in the office in 2 weeks
--- NOTE | 2020-08-03 06:42 | W.PM.DSUDISC ---
Discharge Plan Disposition Patient Disposition: HOME Condition: Good Discharge Details Reason For Visit: colo/egd Attending Provider: Michelle Gaffney Primary Care Provider: Rodolfo Funk Home Meds and New Rx's Prescriptions: New sucralfate [Carafate] 1 gram tablet 1 g PO QID Qty: 56 RF: 0 Continued Flovent HFA 110 mcg/actuation HFA aerosol inhaler 2 puff IH BID PRNRF: 0 albuterol sulfate [ProAir HFA] 90 mcg/actuation HFA aerosol inhaler 2 puff IH Q6H PRN (Reason: shortness of breath or wheezing) Qty: 18 RF: 1 omeprazole 40 mg capsule,delayed release(DR/EC) 40 mg PO BID Qty: 180 RF: 4 escitalopram oxalate 10 mg tablet 10 mg PO DAILY Qty: 90 RF: 4 naproxen [Naprosyn] 500 mg tablet 500 mg PO BID Qty: 14 RF: 0 Discharge Instructions Instructions: Diet for Stomach Ulcers and Gastritis (ED), Esophagitis (DC), Colorectal Polyps (DC) Additional Instructions: Findings: mild inflammation in the stomach, evidence of reflux esophagitis 2 polyps in the large bowel Follow up: 2 weeks in the office Please call if you develop: fevers >101.5 Nausea or Vomiting Abdominal pain that is not transient Rectal bleeding that is more then a tbsp A hard abdomen and inability to pass gas DAY SURGERY UNIT POST ENDOSCOPY INSTRUCTIONS Instructions for everyone who is given Anesthesia: For your safety, please do the following for the next 24 Hours: a. Do not drive or operate dangerous equipment b. Do not drink alcohol beverages or use any recreational drugs for the first 24 hours or while taking pain medications. The medications in your body may have a reaction that can be dangerous. c. Do not make any important decisions or sign any important papers 1. Generally there are no restrictions on your activity after a day or so has gone by, but you may feel a bit fatigued for a few days. 2. After you arrive home you may have a light meal and return to a normal diet as you can tolerate it without feeling sick to your stomach. 3. After surgery, you may feel pain or discomfort. This should be only transient, but if it persists please contact your doctor. 4. If there are any questions regarding the findings of your procedure, please feel free to contact your doctor. 6. If you are unable to contact your doctor with a problem, contact the hospital at [phone]. 7. Continue all your regular medications unless directed otherwise. I understand the above instructions and have no questions. Signature of Patient or Responsible Adult Escort Date/Time Name of Responsible Adult Escort Signature of Nurse Date/Time Referrals: Michelle Gaffney MD [ [facility] STAFF PHYSICIAN] - 08/14/20 10:30 am Activity:: Activity as Tolerated Diet:: low acid Discharge Orders Discharge Orders: Discharge Order (Routine); Ordered 08/03/20 Ordered By: Michelle Gaffney
[2020-08-03 09:17] VITALS: BP 149/97; PULSE 85; RESP 16; TEMP 36.8; O2SAT 98
[2020-08-03] MEDS: Lactated Ringers 1,000 ML 80 ML IV (09:31)
--- NOTE | 2020-08-03 09:34 | W.ANESPRE ---
General Info Date of Service Date Performed: 08/03/20 Height: 5 ft 11 in Weight: 107 kg Body Mass Index (BMI): 32.8 Surgical Procedure: Operation Date: 08/03/20 09:50 Proposed Procedures Side Surgeon p Colonoscopy/Gastroscopy Michelle Gaffney MD Meds Allergies and Home Medications Allergies Allergy/AdvReac Type Severity Reaction Status Date / Time No Known Allergies Allergy Verified 07/29/20 11:56 Home Medication Medication Instructions Recorded albuterol sulfate 90 mcg/actuation 2 puff IH Q6H PRN #18 gm 02/08/18 aerosol inhaler fluticasone propionate 110 2 puff IH BID PRN gm 05/11/18 mcg/actuation HFA aerosol inhaler omeprazole 40 mg capsule,delayed 40 mg PO BID #180 tab-cap 03/07/19 release naproxen [Naprosyn] 500 mg PO BID #14 tab 05/31/20 escitalopram oxalate 10 mg tablet 10 mg PO DAILY #90 tab 06/05/20 Current Visit Medications: Current Medications Generic Name Dose Route Start Last Admin Trade Name Freq PRN Reason Stop Dose Admin Hyoscyamine Sulfate 0.125 mg 08/03/20 06:45 Hyoscyamine 0.125 Mg Sl/Oral/Chew SL DIRECTED PRN Ringer's Solution 1,000 mls @ 80 mls/hr 08/03/20 06:00 08/03/20 09:31 IV 08/30/20 23:59 80 mls/hr INFUSION EMILY Administration IV Miscellaneous Supplies 1 each 08/03/20 06:00 Iv Access IV 08/30/20 23:59 DIRECTED EMILY Ondansetron HCl 4 mg 08/03/20 06:45 Ondansetron 4 Mg/2 Ml Vial IVP Q4H PRN PRN Nausea / Vomiting Sodium Chloride 0 ml 08/03/20 06:00 Normal Saline Flush 10 Ml Syr IV 08/30/20 23:59 PRN PRN Sodium Chloride 0 ml 08/03/20 06:00 Normal Saline 10 Ml Vial IJ 08/30/20 23:59 DIRECTED PRN Sterile Water 0 ml 08/03/20 06:00 Water,Injection,Sterile 10 Ml Vial IJ 08/30/20 23:59 DIRECTED PRN PFSH Active Problems Active Problems: Problem Status Onset Code Prostate cancer screening Z12.5 Diabetes mellitus screening Z13.1 Screening cholesterol level Z13.220 Major depression F32.9 GERD without esophagitis 06/16/17 K21.9 Tubular adenoma 07/25/17 D36.9 Medical History Medical History Acute medial meniscus tear of right knee (08/10/16) chronic back pain Eczema Epididymitis Family history of colon cancer GERD (gastroesophageal reflux disease) Hypercholesterolemia (02/01/08) Inguinal hernia (11/20/12) Insomnia Kidney stone Lateral epicondylitis of left elbow Mild single current episode of major depressive disorder (04/07/16) Multiple lipomas (04/02/15) Sensorineural hearing loss, unilateral, left ear, with unrestricted hearing on the contralateral side (04/07/16) tubular adenomas Umbilical hernia (11/20/12) Surgical History Surgical History Amputation 02/26/14; TIP OF LEFT INDEX FINGER; DR. DICK Arthroplasty of knee Colonoscopy - IV Sedation 2009- adenomatous polyp 2011- no polyps Colonoscopy - MAC (07/25/17) EGD - MAC (07/25/17) Tobacco Smoking/Tobacco Use Status: Former Tobacco Use Passive smoking exposure: Yes Second hand exposure: Yes Alcohol Alcohol Intake: former Substance Use Substance use: Never Substance use type: does not use Vital Signs and Lab Results Vital Signs Most Recent Vital Signs in EMR: Most Recent Vital Signs Temp Pulse Resp BP Pulse Ox 36.8 C 85 16 149/97 H 98 08/03/20 09:17 08/03/20 09:17 08/03/20 09:17 08/03/20 09:17 08/03/20 09:17 Lab Results Blood Type / Crossmatch: No Data to Display Complete Blood Count: White Blood Count 6.99 10^3/uL (4.4-10.8) 05/31/20 09:00 05/31/20 Red Blood Count 5.43 10^6/uL (4.36-5.78) 05/31/20 09:00 05/31/20 Hemoglobin 15.9 g/dL (13.5-17.5) 05/31/20 09:00 05/31/20 Hematocrit 48.5 % (40.0-50.0) 05/31/20 09:00 05/31/20 Platelet Count 205 10^3/uL (130-400) 05/31/20 09:00 05/31/20 Complete Metabolic Panel: Sodium Level 141 mmol/L (136-145) 05/31/20 09:00 05/31/20 Potassium Level 4.8 mmol/L (3.5-5.1) 05/31/20 09:00 05/31/20 Chloride Level 105 mmol/L (98-107) 05/31/20 09:00 05/31/20 Carbon Dioxide Level 29.1 mmol/L (21.0-32.0) 05/31/20 09:00 05/31/20 Blood Urea Nitrogen 18 mg/dL (7-18) 05/31/20 09:00 05/31/20 Creatinine 1.0 mg/dL (0.70-1.30) 05/31/20 09:00 05/31/20 Magnesium Level 2.0 mg/dL (1.8-2.4) 10/12/15 03:33 10/12/15 Calcium Level 9.1 mg/dL (8.5-10.1) 05/31/20 09:00 05/31/20 Albumin 4.0 g/dL (3.4-5.0) 05/31/20 09:00 05/31/20 Glucose Level 113 mg/dL (74-106) H 05/31/20 09:00 05/31/20 Liver Function Panel: Alanine Aminotransferase (ALT/SGPT) 35 U/L (16-63) 05/31/20 09:00 05/31/20 Aspartate Amino Transf (AST/SGOT) 17 U/L (15-37) 05/31/20 09:00 05/31/20 Coagulation Panel: No Data to Display Cardiac Panel: Troponin I 0.06 ng/mL (0.00-0.06) 06/06/17 11:56 06/06/17 Arterial Blood Gas: No Data to Display Venous Blood Gas: No Data to Display Pancreas Panel: Lipase 241 U/L (73-393) 05/31/20 09:00 05/31/20 Thyroid Panel: Thyroid Stimulating Hormone (TSH) 2.61 uIU/mL (0.36-3.74) 03/31/11 08:09 03/31/11 Infectious Disease: Coronavirus (COVID-19)(PCR) Negative (Negative) 07/31/20 08:52 07/31/20 Coronavirus 2019 Source Nasal/nares 07/31/20 08:52 07/31/20 Neisseria gonorrhoeae DNA Probe Negative (Negative) 05/31/20 09:13 05/31/20 Blood Cultures: No Data to Display Toxicology Panel: No Data to Display Imaging and Studies Imaging and Studies Stress Test Summary:: Date of study: 06/12/2017 Impressions: - Normal study after maximal exercise. - Low risk of cardiac events. Summary: 1. Myocardial perfusion imaging: No myocardial perfusion defects noted. 2. The calculated left ventricular ejection fraction after stress: 57%. LV global systolic function is normal. No left ventricular regional motion abnormality. 3. Stress ECG conclusions: The stress ECG is negative. 4. Stress: The target heart rate was achieved. There is a normal resting blood pressure with an appropriate response to stress. The patient experienced no chest pain during stress. Exercise capacity is normal for age. Anesthesia Assessment and Plan Anesthesia History Personal History: No History of Anesthesia Complications Family History: No Family History of Anesthesia Complications Exercise Tolerance Exercise Tolerance: Metabolic Equivalents>4 Cardiac & Pulmonary Exam Cardiac Exam: Normal S1/S2 Heart Sounds Pulmonary Exam: Clear Bilateral Breath Sounds Airway Exam Known Difficult Airway: No Mallampati Class: 1 Mouth Opening: Normal (> 3cm) Thyromental Distance: Greater than 3 cm Neck Range of Motion: Full ROM Neck Circumference: Normal Teeth Condition: Normal Dentition ASA Classification ASA Score: ASA 2 Emergency Case?: No NPO Status NPO Status: NPO Clears >2 hours, Solids >8 hours Anesthesia Plan Anesthesia Technique: General Anesthesia Airway Planned: Natural Airway Monitors Used: Standard Monitors
[2020-08-03 09:45] VITALS: BMI 32.8
--- NOTE | 2020-08-03 09:58 | STOM_PTH ---
PATIENT: Desean Watt LOC: [facility] U#:[id number] AGE/SX: 59/M ROOM: RE08/03/[address]: Michelle Gaffney MD : 1960 BED: DIS: 08/03/2020 SPEC #: [id number] RECD: 08/03/20 12:33 STATUS: TANG RE #: [id number] ROBBY: 08/03/20 09:[address]: Michelle Gaffney DEPT: Surgical Specimen RECD BY: Maricruz Zamora ENTERED: 08/03/20 12:37 SP TYPE: STOMACH OTHR DR: Rodolfo Funk MD Tissues: 1 - STOMACH BIOPSY 2 - ESOPHAGUS BIOPSY 3 - BIOPSY BOWEL Procedures: GROSS AND MICRO LEVEL 4 Comments: [id number]
[2020-08-03 10:38] VITALS: BP 120/84; PULSE 73; RESP 16; TEMP 36.5; O2SAT 95
[2020-08-03 11:05] VITALS: BP 132/87; PULSE 55; RESP 16; TEMP 36.6; O2SAT 96
--- NOTE | 2020-08-03 11:16 | W.ANESPOSTOP ---
Postoperative Evaluation Date, Time and Location Date Performed: 08/03/20 Time Performed: 11:16 Patient Location: Day Surgery Unit Vital Signs Most Recent Imported Vital Signs: Most Recent Vital Signs Temp Pulse Resp BP Pulse Ox 36.6 C 55 L 16 132/87 96 08/03/20 11:05 08/03/20 11:05 08/03/20 11:05 08/03/20 11:05 08/03/20 11:05 Pain Score Most Recent Pain Score: Most Recent Pain Score Pain Level 0 08/03/20 11:05 Assessment Mental Status: Awake (Alert & Oriented to Patient Baseline) Airway and Respiratory Function: Patent airway with normal (patient baseline) respiratory exam Cardiovascular Function: Hemodynamically Stable Hydration Status: Adequately Hydrated Nausea & Vomiting: No Nausea or Vomiting Pain: Pt. Denies Any Pain Peripheral Nerve Block: Patient did not receive a nerve block
== END 2020-08-03 11:41 | disposition home or self-care (01) ==
LOC: SUR 09:05
PROVIDERS: PCP Family Medicine; Visit Provider Surgery
PROC: (CPT 45385; principal; 2020-08-03 09:45)
DX: K63.5 Polyp of colon (principal); K21.00 Gastro-esophageal reflux disease with esophagitis, without bleeding; Z80.0 Family history of malignant neoplasm of digestive organs; Z86.010 Personal history of colon polyps
CPT/HCPCS: 45385; 43239; 88305; J2001

== ENCOUNTER 2021-04-21 01:26 | Outpatient (CLI) | payer BC, SELFPAY ==
[2021-04-21 12:22] LABS: Hemoglobin A1C 5.7 % (<5.7)
[2021-04-21 22:00] LABS: PSA, Screening 0.5 ng/mL (0.0-4.5)
== END 2021-04-21 01:27 | disposition home or self-care (01) ==
LOC: LBO 01:26
PROVIDERS: PCP Nurse Practitioner Family; Visit Provider Nurse Practitioner Family
DX: Z13.1 Encounter for screening for diabetes mellitus (principal); Z12.5 Encounter for screening for malignant neoplasm of prostate
CPT/HCPCS: 36415; 84153; 83036

== ENCOUNTER 2021-09-29 08:54 | Outpatient (CLI) | payer BC, SELFPAY ==
[2021-09-29 08:10] LABS: Calculated LDL 134 mg/dL (<100); Cholesterol 203 mg/dL (<200); HDL Cholesterol 35 mg/dL (40-60); Triglyceride 171 mg/dL (<150)
== END 2021-09-29 08:55 | disposition home or self-care (01) ==
LOC: LBO 09:00
PROVIDERS: PCP Nurse Practitioner Family; Visit Provider Nurse Practitioner Family
DX: Z13.220 Encounter for screening for lipoid disorders (principal)
CPT/HCPCS: 36415; 80061

== ENCOUNTER → 2021-12-23 14:53 | Outpatient (CLI) | payer BC, SELFPAY ==
--- NOTE | 2021-12-23 12:30 | DI.CT_ITS ---
Exam(s) CT ABDOMEN PELVIS W EXAM: CT ABDOMEN PELVIS W CLINICAL HISTORY: Lower abdominal pain x 5 weeks, R10.30 TECHNIQUE: Imaging Protocol: Axial computed tomography images with coronal and sagittal reformatted images were created and reviewed CONTRAST MATERIAL: Intravenous: Omnipaque 350 Contrast volume:100 mL Oral: Yes COMPARISON: CT CT ABDOMEN PELVIS W from 05/31/2020 FINDINGS: ABDOMEN: Lung Bases: Mild centrilobular emphysematous changes are present in the lung bases. Liver: Normal density. No measurable mass. Portal, Superior Mesenteric, and Splenic Veins: Unremarkable. Gallbladder and Biliary Tract: No radiodense calculus or dilation. Pancreas: Normal density, no abnormal calcifications or inflammatory process. Spleen: Normal. Adrenals: No masses seen. Kidneys: Normal size, contour and axis. No radiodense stones or obstructive uropathy. There are tiny hypodensities in the kidneys. They are too small for further characterization but likely reflect sma ll cysts. Abdominal Aorta: Abdominal portion non-dilated. Atherosclerosis is present. Bowel: No evidence of bowel obstruction. Appendix is unremarkable. There is diverticulosis seen in t he sigmoid colon. There is mild increased attenuation adjacent to the mid sigmoid colon. This may r epresent a mild acute diverticulitis. No abscess or free air is present. Peritoneal Cavity: No ascites, collection or mesenteric inflammatory response. No free air. Lymph Nodes: Within normal limits. Bones: Within normal limits for the patient's age. Soft Tissues: There is a small fat containing umbilical hernia. There are bilateral fat containing i nguinal hernias. PELVIS: Bladder: Symmetric distention, no gross wall thickening. Reproductive Organs: Mildly enlarged prostate gland. Lymph Nodes: Within normal limits. Bones: Within normal limits for the patient's age. IMPRESSION: Sigmoid diverticulosis. There is mild increased attenuation in the fat adjacent to the mid sigmoid c olon which may represent a mild or early acute diverticulitis. No abscess or free air. RADIATION DOSE DELIVERED: 1,420.65mGy.cm Total DLP DATA REPOSITORY: All CT scans at this facility are submitted to the National Radiology Data Registry (NRDR) Dose Index Registry (DIR) with the [employer] (ACR). RADIATION OPTIMIZATION: All CT scans at this facility use at least one of these dose optimization te chniques: automated exposure control; mA and/or kV adjustment per patient size (includes targeted exa ms where dose is matched to clinical indication); or iterative reconstruction.
[2021-12-23 13:50] LABS: CREATININE 0.9 mg/dL (0.70-1.30); Estimated GFR 96.57 (mL/min/1.73m2)
[2021-12-23] MEDS: Barium Sulfate 2% W/V-Berry Smoothie 450 ML BTL 900 ML PO (14:33)
[2021-12-23] MEDS: Omnipaque 350 MG/ML 100 ML BTL IJ (14:34)
--- OUTSIDE RECORDS SUMMARY | 2021-12-23 15:09 | XMS_ITS | Encounter Summary ---
:1960 Author Organization [facility] Address [address] [place] [address] Care Team Providers Name Role Phone Unknown, Provider Primary Care Provider Encounter Details Date Type Department Care Team Description 11/02/2009 Results Only [facility] Aldair Cabrera MD Laboratory Services - [address] [place] [address] [address] [facility] [place], [place] [id number] [phone] Social History Tobacco Use Types Packs/Day Years Used Date Never Assessed Sex Assigned at Date Recorded Not on file documented as of this encounter Plan of Treatment Not on filedocumented as of this encounter Procedures Procedure Name Priority Date/Time Associated Diagnosis Comme [facility] SURGICAL PATHOLOGY Routine 11/02/2009 0:00 EDT Re sults for this procedure are i n the results section. documented in this encounter Results SURGICAL PATHOLOGY (11/02/2009 0:00 EDT) Pathology Report: SURGICAL PATHOLOGY REPORT ? LESTER CARDONA Reports generated via electr CADFORCE interface contain original data; ? LAB however they are lacking the format of the original report. ? Caution should be taken when reading/interpreting unformatted reports. ? Name: ? WATT, DESEAN ? Accession #: ? [id number] ? : ? 1960 (Age: 49) ??M ? Collec t Date: ? 11/02/2009 ? Location: ? [facility] ? R eceive Date: ? 11/02/2009 ? Provider: ALDAIR WALKO MD ? Copy to: CHANDLER RYAN MD ? Final Pathologic Diagnosis: ? A. ?Colon, antonio sverse, polyps, biopsies: ? 1. ?Fragments o f tubular adenomas. ? B. ?Colon, sigm oid, polyps, biopsies: ? 1. ?Hyperplasti c polyps. ??See comment. ? Comment: ? Flare Stitcher sectio ns of this case have been reviewed at the ? intradepartmental consultati on conference. ??(Dr. Bowman)/christianon ? Document reviewed and electr onically signed by: ? CAMMY BOWMAN MD ? Report ??Date: 11/04/2009 16 :22 ? By the signature above, the attending physician certifies that he/she has ? personally conducted a gross and/or microscopic examination of the described ? specimens and rendered or co nfirmed the above diagnosis. ? Specimen(s) Received: ? A. ?Transverse colon polyp x2 (#1) ? B. ? Sigmoid polyp x3 (# 2) ? Clinical History: ? Colorectal screening ? Gross Description: ? Received in Maria Esther' s fixative labelled Desean Watt and #1 ??transverse colon polyp x2 are six piec es of firm tissue which range from 0.4 x 0.4 x 0.3 ?? cm to 0.2 x 0.1 x 0.1 cm, wi th three submitted as (A1) and the remaining three ?? as (A2). ? Received in Maria Esther's fixat larry labelled Desean Watt and #2 ??sigmoid polyp ?? x3 are four pieces of tissu e which range from 0.3 x 0.3 x 0.2 cm to 0.2 x 0.1 x 0.1 cm, with two submitted a s (B1) and the remaining two as (B2). ??(J. ? Tessitore)/kmm ? End of Report ? Specimen Performing Organization Address City/State/ZIP Code Phon e Number [facility] [address] [place] [address] SERVICES [facility] [address] [place] [address] documented in this encounter Visit Diagnoses Not on filedocumented in this encounter Care Teams Blasting Machine Operator Relationship Specialty Start Date End Date Unknown, Provider, PCP - General 11/02/09 12/06/12 documented as of this encounter
--- OUTSIDE RECORDS SUMMARY | 2021-12-23 15:09 | XMS_ITS | Clinical Summary ---
:1960 Author Organization [facility] Address [address] [place] [address] Care Team Providers Name Role Phone Edwin Astudillo MD Primary Care Provider Unavailable Social History Tobacco Use Types Packs/Day Years Used Date Never Assessed Sex Assigned at Date Recorded Not on file Plan of Treatment Health Maintenance Due Date Last Done Comments Hepatitis C Screen 1960 COVID-19 Vaccine (#1) 04/14/1960 Insurance Payer Benefit Plan / Subscriber ID Effective Dates Phone Addre ss Type Group BCBS [facility] [id number] 2018-Present [address] [facility] [place] [address] Desean Watt Personal/Family Self 1960 [address] (Home) [place] [address] Desean Watt Personal/Family Self 1960 [address] (Home) [place] [address] Desean Watt Personal/Family Self 1960 [address] (Home) [place] [address] Desean Watt Personal/Family Self 1960 [address] (Home) [place] [address] Care Teams Lever Operator Relationship Specialty Start Date End Date Edwin Astudillo MD PCP - General 07/27/17
--- OUTSIDE RECORDS SUMMARY | 2021-12-23 15:09 | XMS_ITS | Encounter Summary ---
:1960 Author Organization [facility] Address [address] [place] [address] Care Team Providers Name Role Phone Edwin Astudillo MD Primary Care Provider Unavailable Encounter Details Date Type Department Care Team Description 04/21/2021 Lab Requisition [facility] Outr Resulting Lab, Pathology & Laboratory Provider [facility] [address] [place] [id number] Social History Tobacco Use Types Packs/Day Years Used Date Never Assessed Sex Assigned at Date Recorded Not on file documented as of this encounter Plan of Treatment Not on filedocumented as of this encounter Procedures Procedure Name Priority Date/Time Associated Comments Diagnosis PSA TOTAL, Routine 04/21/2021 11:49 Results for this DIAGNOSTIC EST procedure are i n the results section. documented in this encounter Results PSA TOTAL, DIAGNOSTIC (04/21/2021 11:49 EST) Pathologist Sig nature PSA 0.5 0.0 - 4.5 ng/mL [facility] Specimen Blood - Venous blood (substance) Narrative [facility] - 04/21/2021 21:56 EST NOTE: Serum PSA concentration should not be in terpreted as absolute evidence for the presence or absence of malignant disease. Assayed on Siemens ADVIA Centaur XPT usi ng chemiluminescent technology.??Values obtained by using different assay methods cannot be used interchangeably. Performing Organization Address City/State/ZIP Code Phon e Number [facility] [address] [place] [address] SERVICES documented in this encounter Visit Diagnoses Not on filedocumented in this encounter Care Teams Cloth Finishing Range Back Tender Relationship Specialty Start Date End Date Edwin Astudillo MD PCP - General 07/27/17 documented as of this encounter
--- OUTSIDE RECORDS SUMMARY | 2021-12-23 15:09 | XMS_ITS | Encounter Summary ---
:1960 Author Organization [facility] Address [address] [place] [address] Care Team Providers Name Role Phone Alek Mata MD Primary Care Provider Encounter Details Date Type Department Care Team Description 07/25/[address] [facility] Adriane Pyle, [address] [place] [address] [address] [place], [place] [phone] (Wo rk) Social History Tobacco Use Types Packs/Day Years Used Date Never Assessed Sex Assigned at Date Recorded Not on file documented as of this encounter Plan of Treatment Not on filedocumented as of this encounter Procedures Procedure Name Priority Date/Time Associated Diagnosis Comme nts SURGICAL PATHOLOGY Routine 07/25/2017 22:04 Resul ts for this EDT procedure are i n the results section. documented in this encounter Results SURGICAL PATHOLOGY (07/25/2017 22:04 EDT) Pathology Report: SURGICAL PATHOLOGY REPORT [facility] Reports generated via electronic interface conta in original data; CENTER LAB[facility]ORY however they are lacking the format of the original re port. SERVICES Caution should be taken when reading/interpreting unfo rmatted reports. Name: ? DESEAN WATT ? Accession #: ? [id number] ? : ? 1960 (Age: [age]) ??M ? Collect Date: ? 07/25/2017 ? Location: ? [facility] ? Receive Date: ? 8 ? Provider: ADRIANE ALVES MD Copy to: JOSETTE MIXON MD ? Final Pathologic Diagnosis: A. STOMACH, ANTRUM, BIOPSY: - ??Fundic and antral mucosa with mild reactive gastro martínez. - ??No Helicobacter pylori-like organisms identi fied on H&E-stained sections. B. GASTROESOPHAGEAL JUNCTION, BIOPSY: - ??Squamocolumnar mucosa with intestinal metaplasia. ?? - ??Negative for dysplasia. C. COLON, ASCENDING, POLYP, BIOPSY: - ??Tubular adenoma. D. COLON, SIGMOID, POLYPS, BIOPSIES: - ??Colonic mucosa with hyperplastic change. Document reviewed and electronically signed by: FRANCISCO BATEMAN MD Report ??Date: 07/27/2017 16:11 By the signature above, the attending physician certif ies that he/she has personally conducted a gross and/or microscopic examin ation of the described specimens and rendered or confirmed the above diagnosi s. Specimen(s) Received: A. ??Antrum bx B. ??GE junction bx C. ??Ascending colon polyp D. ??Sigmoid polyp x 2 Clinical History: Reflux, gastritis, esophagitis, family hx and pt hx co nicolasa polyps Gross Description: A. ?Received in formalin labelled with proper p atient identification (initials S, B) and antrum bx are three pink-reeves tissues (0.3 x 0.2 x 0.2 cm, 0.3 x 0.2 x 0.2 cm and 0.7 x 0.2 x 0.2 cm). Entirely s ubmitted in A1. B. ?Received in formalin labelled with proper p atient identification (initials S, B) and GE junction are three pink -reeves tissues (0.2 x 0.2 x 0.2 cm, 0.2 x 0.2 x 0.2 cm and 0.3 x 0.2 x 0.2 cm). Entire ly submitted in B1. C. ?Received in formalin labelled with proper p atient identification (initials S, B) and ascendi ng colon polyp is a single pink-reeves tissue fragment (0.4 x 0.2 x 0.2 cm). Submitted intact in C1. D. ?Received in formalin labelled with proper p atient identification (initials S, B) and sigmoid polyps x2 are two pink-reeves tissues (0.2 x 0.2 x 0.2 cm and 0.3 x 0.2 x 0.2 cm). Entirely submitted in D1. SUSY Rebollar (ASCP) 07/26/2017 7:50 AM End of Report Specimen Performing Organization Address City/State/ZIP Code Phon e Number [facility] [address] [place] [address] SERVICES documented in this encounter Visit Diagnoses Not on filedocumented in this encounter Care Teams Telecommunications Support Relationship Specialty Start Date End Date Alek Mata MD PCP - General 12/07/12 07/26/[address] [place] [id number] documented as of this encounter
--- OUTSIDE RECORDS SUMMARY | 2021-12-23 15:09 | XMS_ITS | Encounter Summary ---
:1960 Author Organization [facility] Address [address] [place] [address] Care Team Providers Name Role Phone Edwin Astudillo MD Primary Care Provider Unavailable Encounter Details Date Type Department Care Team Description 05/31/2020 Lab Requisition [facility] Outr Resulting Lab, Pathology & Laboratory Provider [facility] [address] [place] [address] Social History Tobacco Use Types Packs/Day Years Used Date Never Assessed Sex Assigned at Date Recorded Not on file documented as of this encounter Plan of Treatment Not on filedocumented as of this encounter Procedures Procedure Name Priority Date/Time Associated Comments Diagnosis CHLAMYDIA/N. Routine 05/31/2020 9:13 Results for this GONORRHOEAE AMPLIFIED EST proced ure are in RNA the results section. documented in this encounter Results CHLAMYDIA/N. GONORRHOEAE AMPLIFIED RNA (05/31/2020 9:13 EST) Pathologist Sig nature Gonococcus Result Negative Negative [facility] Chlamydia Result Negative Negative [facility] Specimen Urine - Urine, Initial Void Performing Organization Address City/State/ZIP Code Phon e Number [facility] [address] [place] [address] SERVICES documented in this encounter Visit Diagnoses Not on filedocumented in this encounter Care Teams Dot Compliance Specialist Relationship Specialty Start Date End Date Edwin Astudillo MD PCP - General 07/27/17 documented as of this encounter
--- OUTSIDE RECORDS SUMMARY | 2021-12-23 15:09 | XMS_ITS | Encounter Summary ---
:1960 Author Organization [facility] Address [address] [place] [address] Care Team Providers Name Role Phone Alek Mata MD Primary Care Provider Encounter Details Date Type Department Care Team Description 07/25/2017 Hospital Encounter [facility] Fina Unknown, Provider, [facility] [address] [facility] [phone] [place] [address] (Work) [phone] Social History Tobacco Use Types Packs/Day Years Used Date Never Assessed Sex Assigned at Date Recorded Not on file documented as of this encounter Discharge Disposition Disposition Code Departure Means Destination Home or Self [facility] documented in this encounter Plan of Treatment Not on filedocumented as of this encounter Visit Diagnoses Not on filedocumented in this encounter Care Teams Farm Boss Relationship Specialty Start Date End Date Alek Mata MD PCP - General 12/07/12 07/26/17 [address] [facility] [address] [place] [address] documented as of this encounter
== END ==
PROVIDERS: PCP Nurse Practitioner Family; Visit Provider Nurse Practitioner Family
DX: K57.30 Diverticulosis of large intestine without perforation or abscess without bleeding (principal)
CPT/HCPCS: 74177; 82565; J3490

== ENCOUNTER 2022-11-10 09:11 | Outpatient (CLI) | payer BC, SELFPAY ==
[2022-11-10 12:23] LABS: Abs Immature Grans 0.03 10^3/uL (0.0-0.06); Absolute Basophil Count 0.06 10^3/uL (0.0-0.2); Absolute Eosinophil Count 0.17 10^3/uL (0.0-0.7); Absolute Lymphocyte Count 1.74 10^3/uL (1.2-3.4); Absolute Monocyte Count 0.52 10^3/uL (0.1-0.8); Absolute Neutrophil Count 4.91 10^3/uL (1.2-6.7); Basophils % 0.8; Eosinophils % 2.3; HCT 47.4 % (40.0-50.0); HGB 15.8 g/dL (13.5-17.5); Immature Grans % 0.4; Lymphocytes % 23.4; MCH 28.7 pg (27.0-33.0); MCHC 33.3 % (32.0-36.0); MCV 86 fL (80-95); Neutrophils % 66.1; Platelet Count 222 10^3/uL (130-400); RBC 5.51 10^6/uL (4.36-5.78); RDW 13.3 % (11.8-14.1); RDW-SD 41.7 fL; WBC 7.43 10^3/uL (4.4-10.8)
[2022-11-10 12:37] LABS: Hemoglobin A1C 5.8 % (<5.7)
[2022-11-10 12:48] LABS: ALT 33 U/L (16-63); AST 17 U/L (15-37); Alkaline Phosphatase 84 U/L (46-116); Anion Gap 7.5 mmol/L (3-11); BUN 16 mg/dL (7-18); Bilirubin, Total 0.9 mg/dL (0.2-1.0); CO2 28.5 mmol/L (21.0-32.0); CREATININE 0.9 mg/dL (0.70-1.30); Calcium 9.6 mg/dL (8.5-10.1); Chloride 107 mmol/L (98-107); Estimated GFR 95.97 (mL/min/1.73m2); Glucose 108 mg/dL (74-106); Potassium 4.5 mmol/L (3.5-5.1); Sodium 143 mmol/L (136-145); TSH (W/Ref FT4) 2.16 uIU/mL (0.36-3.74); Total Protein 7.7 g/dL (6.4-8.2)
== END 2022-11-10 09:12 | disposition home or self-care (01) ==
LOC: LOS 09:11
PROVIDERS: PCP Nurse Practitioner Family; Referring Provider Nurse Practitioner Family; Visit Provider Nurse Practitioner Family
DX: R51.9 Headache, unspecified (principal)
CPT/HCPCS: 36415; 80053; 83036; 84443; 85025

== ENCOUNTER 2022-11-22 03:22 | Outpatient (CLI) | payer BC, SELFPAY ==
[2022-11-24 10:33] LABS: Lyme Ab w Rflx to Lyme Confirm Negative (Negative)
[2022-11-27 00:50] LABS: Anaplasma phagocytophilum Negative (Negative); B. miyamotoi PCR Negative (Negative); Babesia divergens/MO-1 Negative (Negative); Babesia duncani Negative (Negative); Babesia microti Negative (Negative); Ehrlichia chaffeensis Negative (Negative); Ehrlichia ewingii/canis Negative (Negative); Ehrlichia muris eauclairensis Negative (Negative)
== END 2022-11-22 03:23 | disposition home or self-care (01) ==
LOC: LBO 03:23
PROVIDERS: PCP Nurse Practitioner Family; Visit Provider Nurse Practitioner Family
DX: G89.29 Other chronic pain (principal); R51.9 Headache, unspecified
CPT/HCPCS: 36415; 87798; 86618

== ENCOUNTER → 2023-05-31 04:20 | Outpatient (CLI) | payer BC, SELFPAY ==
[2023-05-31] MEDS: Barium Sulfate 700 MG TAB PO (10:04)
[2023-05-31] MEDS: Simethicone/Sod Bicarb/Cit Ac, 4 gram PACKET 1 PACKET PO (10:04)
[2023-05-31] MEDS: Barium Sulfate 60% W/V 355 ML BTL PO (10:05)
[2023-05-31] MEDS: Barium Sulfate 98% W/W 140 ML BTL PO (10:05)
--- NOTE | 2023-05-31 10:06 | DI.RAD_ITS ---
Exam(s) RF BARIUM SWALLOW EXAM: RF BARIUM SWALLOW CLINICAL HISTORY: Coughs a lot only while eating,aspiration into airway,T17.908a TECHNIQUE: 2D and realtime digital imaging was performed. CONTRAST MATERIAL: Thick and thin barium and barium tablet were administered. COMPARISON: CR XR CHEST 2V PA LATERAL from 03/06/2018 FINDINGS: The PA and lateral chest films show normal heart size and clear lung garcia. The lateral pole classifier view of the neck is shows degenerative changes in the cervical spine. Esophagus: The patient swallowed barium without difficulty. No evidence of laryngeal penetration or aspiration. Noevidence for mucosal erosions. Nofold thickening. No mass is visible. The barium ta blet stuck briefly at the GE junction. Motility: There is a normal primary stripping wave. Mild tertiary contractions were noted. There is a small hiatal hernia. Mildgastroesophageal reflux was observed during the exam. Small diverticulum of the descending duodenum noted. IMPRESSION: Small hiatal hernia. Mild gastroesophageal reflux. Barium tablet stuck briefly at the GE junction. RADIATION DOSE DELIVERED: Ka,r=25.3 mGy
== END ==
PROVIDERS: PCP Nurse Practitioner Family; Visit Provider Nurse Practitioner Family
DX: K44.9 Diaphragmatic hernia without obstruction or gangrene (principal)
CPT/HCPCS: 74221; J3490

== ENCOUNTER 2023-08-28 08:11 | Day surgery (SDC) | payer BC, SELFPAY ==
[2023-08-28 08:33] VITALS: BP 146/96; PULSE 89; RESP 18; TEMP 36; O2SAT 97
[2023-08-28] MEDS: Lactated Ringers 1,000 ML 80 ML IV (08:40)
--- NOTE | 2023-08-28 08:41 | W.ANESPRE ---
General Info Date of Service Date Performed: 08/28/23 Height: 5 ft 10 in Weight: 103.5 kg Body Mass Index (BMI): 32.7 Surgical Procedure: Operation Date: 08/28/23 09:50 Proposed Procedure Side Surgeon p Colonoscopy/Gastroscopy Pablo Silva MD Meds Allergies and Home Medications Allergies Allergy/AdvReac Type Severity Reaction Status Date / Time No Known Allergies Allergy Verified 08/28/23 08:28 Home Medication Medication Instructions Recorded triamcinolone acetonide 0.5 % 1 applic topical BID #15 grams 05/24/21 topical cream escitalopram oxalate 10 mg tablet 10 mg PO DAILY #90 tabs 07/22/22 omeprazole 40 mg capsule,delayed 40 mg PO BID #180 tab-caps 06/26/23 release bisacodyl 5 mg tablet,delayed 5 mg PO ONCE #4 tabs 08/17/23 release (Dulcolax (bisacodyl)) polyethylene glycol 3350 17 17 g PO ONCE #238 grams 08/17/23 gram/dose oral powder Current Visit Medications: Current Medications Generic Name Dose Route Start Last Admin Trade Name Freq PRN Reason Stop Dose Admin Ringer's Solution 1,000 mls @ 80 mls/hr 08/28/23 06:00 IV 08/28/23 23:59 INFUSION EMILY IV Miscellaneous Supplies 1 each 08/28/23 06:00 Iv Access IV 08/28/23 23:59 DIRECTED EMILY Sodium Chloride 0 ml 08/28/23 06:00 Normal Saline Flush 10 Ml Syr IV 08/28/23 23:59 PRN PRN Sodium Chloride 0 ml 08/28/23 06:00 Normal Saline 10 Ml Vial IJ 08/28/23 23:59 DIRECTED PRN Sterile Water 0 ml 08/28/23 06:00 Water,Injection,Sterile 10 Ml Vial IJ 08/28/23 23:59 DIRECTED PRN PFSH Active Problems Active Problems: Problem Status Onset Code Elevated blood pressure reading R03.0 Wears hearing aid in both ears Z97.4 Aspiration into airway T17.908A Chronic headaches R51.9, G89.29 Skin lesion L98.9 Muller's esophagus ~07/2020 K22.70 Major depression F32.9 GERD without esophagitis 06/16/17 K21.9 Tubular adenoma 07/25/17 D36.9 Medical History Medical History Kidney stone Epididymitis Lateral epicondylitis of left elbow Umbilical hernia (11/20/12) Sensorineural hearing loss, unilateral, left ear, with unrestricted hearing on the contralateral side (04/07/16) 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 reports having sips of water at 0630 Surgical History Surgical History History of colonoscopy (~07/2020) History of esophagogastroduodenoscopy (EGD) (~07/2020) EGD - MAC (07/25/17) Colonoscopy - MAC (07/25/17) Colonoscopy - IV Sedation 2009- adenomatous polyp 2011- no polyps Arthroplasty of knee pt. 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 DICK Tobacco Smoking/Tobacco Use Status: Former Tobacco Use Second hand exposure: Yes Alcohol Alcohol Intake: former Substance Use Substance use: Never Substance use type: does not use Vital Signs and Lab Results Vital Signs Most Recent Vital Signs in EMR: Most Recent Vital Signs Temp Pulse Resp BP Pulse Ox 36.0 C L 89 18 146/96 H 97 08/28/23 08:33 08/28/23 08:33 08/28/23 08:33 08/28/23 08:33 08/28/23 08:33 Lab Results Blood Type / Crossmatch: No Data to Display Complete Blood Count: No Data to Display Complete Metabolic Panel: No Data to Display Liver Function Panel: No Data to Display Coagulation Panel: No Data to Display Cardiac Panel: No Data to Display Arterial Blood Gas: No Data to Display Venous Blood Gas: No Data to Display Pancreas Panel: No Data to Display Thyroid Panel: No Data to Display Infectious Disease: No Data to Display Blood Cultures: No Data to Display Toxicology Panel: No Data to Display Imaging and Studies Imaging and Studies Study information below may be from another EMR and interpreted by another provider. Please see original notes in EMR for more complete details. Stress Test Summary: Date of study: 06/12/2017 *PATIENT PRESENTATION* Height: 182.9cm (72in) Blood Pressure: Weight: 110.9kg (244lb) BSA: 2.41m^2 Referring physician: Luis A Santana Ordering physician: Rodolfo Funk Impressions: - Normal study after maximal exercise. - Low risk of cardiac events. Summary: 1. Myocardial perfusion imaging: No myocardial perfusion defects noted. 2. The calculated left ventricular ejection fraction after stress: 57%. LV global systolic function is normal. No left ventricular regional motion abnormality. 3. Stress ECG conclusions: The stress ECG is negative. 4. Stress: The target heart rate was achieved. There is a normal resting blood pressure with an appropriate response to stress. The patient experienced no chest pain during stress. Exercise capacity is normal for age. Anesthesia Assessment and Plan Anesthesia History Personal History: No History of Anesthesia Complications Family History: No Family History of Anesthesia Complications Exercise Tolerance Exercise Tolerance: Metabolic Equivalents>4 Pertinent Negatives Pertinent Negatives: No Symptoms of GERD, No Major Cardiovascular Symptoms or Complaints and No Major Pulmonary Symptoms or Complaints Cardiac & Pulmonary Exam Cardiac Exam: Normal S1/S2 Heart Sounds Pulmonary Exam: Clear Bilateral Breath Sounds Implantable Cardiac Device Does patient have a Pacemaker or an ICD?: No Airway Exam Known Difficult Airway: No Mallampati Class: 1 Mouth Opening: Normal (> 3cm) Thyromental Distance: Greater than 3 cm Neck Range of Motion: Full ROM Neck Circumference: Normal Teeth Condition: Normal Dentition ASA Classification ASA Score: ASA 2 Emergency Case?: No NPO Status NPO Status: NPO Clears >2 hours, Solids >8 hours Anesthesia Plan Resuscitation Status: Full Code Anesthesia Technique: General Anesthesia Airway Planned: Natural Airway Monitors Used: Standard Monitors
[2023-08-28 08:43] VITALS: BMI 32.7
--- NOTE | 2023-08-28 09:09 | COLE_ITS ---
Date of service: 08/28/23 Time of Service: 09:09 Colonoscopy Report Procedure Description: PROCEDURES PERFORMED: 1. Colonoscopy with hot snare polypectomy x2 PREOPERATIVE DIAGNOSIS: Surveillance colonoscopy, family history of colon cancer, tubulovillous polyps POSTOPERATIVE DIAGNOSIS: Colon polyps, moderate sigmoid diverticulosis, sigmoid fibrosis SURGEON: Alessandro Silva MD INDICATION for procedure: The patient is a 62-year-old man who has a history of tubulovillous polyps removed on last colonoscopy 3 years ago. He has extensive family history of colon cancer with multiple second-degree relatives on his father side having had colon cancer. FINDINGS: In the distal transverse colon there were 2 polyps found next to each other. 1 was a pedunculated 5-7 mm polyp and the other was a very flat, sessile 7-10 mm polyp. Both were removed with hot snare technique and placed in the same specimen container. In the sigmoid colon only, there is a very isolated but distinct segment about 10-15 cm in length of diverticular disease. It is very fibrotic and not very distensible. No active diverticulitis but it was quite difficult to navigate through due to a narrow lumen. No significant hemorrhoid disease. SURVEILLANCE interval/FOLLOW-UP: Considering the history and the findings today, repeat another colonoscopy in 3 years. If you continue to have left lower quadrant or lower abdominal discomfort, it is probably related to your diverticular disease in your sigmoid colon. Surgical resection may need to be considered if this does not go away with time. SPECIMENS: yes EBL: Minimal COMPLICATIONS: None QUALITY of prep: Excellent Procedure in detail: The patient gave written consent and was in agreement with the indications, the potential risks as well as the benefits of the procedure. He was turned from upper endoscopy (see separate procedure note) and anesthesia was continued and I started the colonoscopy portion of the procedure. Digital rectal and visual examination was performed and grossly within normal limits. A well-lubricated flexible colonoscope was then introduced and passed without any notable difficulty all the way to the cecum identified by the ileocecal valve and the appendiceal orifice. The scope was then slowly with drawn with the above-noted findings. The patient tolerated the procedure well and was taken to the PACU in hemodynamically stable condition.
--- NOTE | 2023-08-28 09:09 | W.PM.ENDDOP ---
Date of service: 08/28/23 Time of Service: 09:09 Endoscopy Report PROCEDURE DESCRIPTION: PROCEDURES PERFORMED: 1. EGD with biopsies 2. Cold forceps polypectomy x 1 PREOPERATIVE DIAGNOSIS: Muller's esophagus POSTOPERATIVE DIAGNOSIS: Gastric polyps, small (~1 cm) sliding hiatal hernia Hill grade 1, LA grade A esophagitis SURGEON: Alessandro Silva MD INDICATION FOR PROCEDURE: 62-year-old man with history of Muller's esophagus on PPI therapy. He denies any ongoing symptoms of concern. FINDINGS: D2/D3 = normal D1/bulb = normal - no ulcers or inflammation Pylorus = normal Antrum = normal appearance, no ulcers, cold forceps biopsies were taken to rule out H. pylori routinely Body = normal appearance, less than 10 benign?appearing stomach polyps present Fundus = less than 10 benign?appearing stomach polyps present, 1 removed with cold forceps technique to confirm benign histology Cardia = normal Hiatus = Hill grade 1 hiatal opening with very small (~1cm) sliding hiatal hernia Distal esophagus = there are are a couple of small/minimal mucosal breaks consistent with grade A esophagitis. I do not appreciate any visible Muller's disease. Cold forceps biopsies were taken in multiple locations. Mid esophagus = normal Proximal esophagus/hypopharynx/vocal cords = normal SURVEILLANCE-INTERVAL/FOLLOW-UP: Any follow-up is with your PCP and/your or GI doctor. I defer to them to decide whether or not to have further surveillance endoscopies. Considering the history as well as the presence of some polyps in the setting of PPI therapy, it may be worthwhile to do another endoscopy in 5 years. Specimens: Yes EBL: Minimal COMPLICATIONS: None Procedure in detail: The patient gave written consent and was in agreement with the indications, the potential risks as well as the benefits of the procedure. The patient was taken to the endoscopy suite and laid on their left side. Anesthesia was given which was tolerated well. We performed a timeout and we are in agreement I started the procedure. A well-lubricated endoscope was gently and carefully advanced down the esophagus, into the stomach the scope was and through the pylorus into the duodenum. The scope was then slowly withdrawn with the above-noted findings/interventions. The patient tolerated the procedure well and was then turned for colonoscopy (see separate procedure note).
--- NOTE | 2023-08-28 09:25 | STOM_PTH ---
PATIENT: Desean Watt LOC: [facility] U#:[id number] AGE/SX: 62/M ROOM: RE08/28/[address]: Pablo Silva : 1960 BED: DIS: 08/28/2023 SPEC #: [id number] RECD: 08/28/23 12:59 STATUS: TANG RE #: [id number] ROBBY: 08/28/23 09:[address]: Pablo Silva DEPT: Surgical Specimen RECD BY: Maricruz Zamora ENTERED: 08/28/23 13:01 SP TYPE: STOMACH OTHR DR: Rodriguez Nair, BACTERIOLOGIST MEDICAL Tissues: 1 - STOMACH BIOPSY 2 - STOMACH BIOPSY 3 - ESOPHAGUS BIOPSY 4 - BIOPSY BOWEL Procedures: GROSS AND MICRO LEVEL 4 Comments: [id number]
[2023-08-28 09:58] VITALS: BP 118/80; PULSE 77; RESP 16; TEMP 36.6; O2SAT 94
--- NOTE | 2023-08-28 10:03 | PDOC.DSDIS_ITS ---
Date of service: 08/28/23 Time of Service: 10:03 Discharge Plan Disposition Patient Disposition: Home Condition: Good Discharge Details Attending Provider: Pablo Silva Primary Care Provider: Rodriguez Nair Home Meds and New Rx's Prescriptions: No Action bisacodyl [Dulcolax (bisacodyl)] 5 mg tablet,delayed release (DR/EC) 5 mg PO ONCE Qty: 4 0RF Rx Instructions: Take per colonoscopy instructions provided by ordering providers office polyethylene glycol 3350 17 gram/dose powder 17 g PO ONCE Qty: 238 0RF Rx Instructions: Take per colonoscopy instructions provided by ordering providers office triamcinolone acetonide 0.5 % cream 1 applic topical BID Qty: 15 0RF escitalopram oxalate 10 mg tablet 10 mg PO DAILY Qty: 90 4RF omeprazole 40 mg capsule,delayed release(DR/EC) 40 mg PO BID Qty: 180 4RF Patient Comments: pt. only takes in AM Discharge Instructions Additional Instructions: FINDINGS: On upper endoscopy, your Muller's esophagus appears to either be completely regressed/gone or minimal. This is probably secondary to the omeprazole therapy. Incidentally seen were some small, benign polyps in the stomach which are usually a side effect of the omeprazole therapy. You have a very small hiatal hernia and most of the time those do not need any intervention. Whether or not to have another endoscopy 3-5 years from now is debatable and you can discuss with your PCP. On colonoscopy, some more small polyps were found and removed. This is the re ason we do the colonoscopy. You should do another colonoscopy in 3 years. Also found on the colonoscopy was significant and very thickened diverticular disease in your sigmoid colon. That is in the left lower side of your abdomen and probably the result of the discomfort you have been feeling. Discuss further with your PCP. If this does not go away with time, you may need to have this section of your colon removed in order to become free of symptoms. It is too soon to tell, but if the pain persists and becomes a chronic problem, it is going to be related to that issue. Activity:: Activity as Tolerated Diet:: As Tolerated
--- NOTE | 2023-08-28 10:13 | W.ANESPOSTOP ---
Postoperative Evaluation Date, Time and Location Date Performed: 08/28/23 Time Performed: 10:13 Patient Location: Day Surgery Unit Vital Signs Most Recent Imported Vital Signs: Most Recent Vital Signs Temp Pulse Resp BP Pulse Ox 36.6 C 77 16 118/80 94 08/28/23 09:58 08/28/23 09:58 08/28/23 09:58 08/28/23 09:58 08/28/23 09:58 Pain Score Most Recent Pain Score: Most Recent Pain Score Pain Level 0 08/28/23 09:58 Assessment Mental Status: Awake (Alert & Oriented to Patient Baseline) Airway and Respiratory Function: Patent airway with normal (patient baseline) respiratory exam Cardiovascular Function: Hemodynamically Stable Hydration Status: Adequately Hydrated Nausea & Vomiting: No Nausea or Vomiting Pain: Pt. Denies Any Pain Peripheral Nerve Block: Patient did not receive a nerve block
[2023-08-28 10:36] VITALS: BP 127/80; PULSE 66; RESP 16; TEMP 36.6; O2SAT 98
== END 2023-08-28 10:45 | disposition home or self-care (01) ==
PROVIDERS: PCP Nurse Practitioner Family; Visit Provider Student in an Organized Health Care Education/Training Program
PROC: (CPT 45385; principal; 2023-08-28 09:45)
DX: Z12.11 Encounter for screening for malignant neoplasm of colon (principal); K21.00 Gastro-esophageal reflux disease with esophagitis, without bleeding; K22.70 Barrett's esophagus without dysplasia; K57.30 Diverticulosis of large intestine without perforation or abscess without bleeding; D12.3 Benign neoplasm of transverse colon; K44.9 Diaphragmatic hernia without obstruction or gangrene; K31.7 Polyp of stomach and duodenum; K22.89 Other specified disease of esophagus
CPT/HCPCS: 45385; 43239; 00123; 88305; J2704

== ENCOUNTER 2023-10-08 14:34 | Inpatient (IN) | payer BC, SELFPAY ==
[2023-10-08] VITALS (88 sets, daily range): BP systolic 102–167; BP diastolic 39–92; PULSE 43–76; RESP 9–23; TEMP 36.6–36.7; O2SAT 93–99
--- NOTE | 2023-10-08 14:30 | RT.EKG_ITS ---
APPROVED REPORT Exam: Resting ECG Reason for Exam: Chest Pain Patient Location: E HR:65 bpm ECG Measurements Heart Rate 65 AXIS WY 148 P 25 QRSd 104 QRS -6 QT 417 T 32 QTc 433 Conclusion Sinus rhythm...normal P axis, V-rate 60- 99
--- NOTE | 2023-10-08 14:45 | DI.CT_ITS ---
Exam(s) CT CHEST PE CTA EXAM: CT CHEST PE CTA CLINICAL HISTORY: chest pain, dyspnea, ?PE. TECHNIQUE: Imaging Protocol: Axial CT angiography was performed with multi-slice acquisition and mu lti-planar reconstructions as well as axial, coronal and sagittal MIP reconstructions. CONTRAST MATERIAL: Intravenous: Omnipaque 350 Contrast volume:100 ml COMPARISON: CR XR CHEST 2V PA LATERAL from 03/06/[address] ABDOMEN PELVIS W from 12/23/2021 FINDINGS: Pulmonary Arteries: No evidence of filling defect to suggest pulmonary emboli. Tracheobronchial tree: No mucous plugging. Mediastinum and Radha: No dominant adenopathy or fluid collection. Pulmonary parenchyma: No consolidation or dominant measurable mass. Not well evaluated due to expir atory changes. Pleura: No effusion or pneumothorax. Heart: The heart is mildly dilated. No coronary artery calcifications are seen. Aorta: Thoracic aorta non-dilated. No dissection. Mild atherosclerotic changes. Upper abdomen: No acute findings. Bones: Unremarkable for age. Tubes, Catheters, and Lines: None Soft tissues: Unremarkable. IMPRESSION: No evidence of pulmonary embolism or other acute abnormality.. Suboptimal evaluation of the lungs due to expiratory changes. RADIATION DOSE DELIVERED: Total DLP DATA REPOSITORY: All CT scans at this facility are submitted to the National Radiology Data Registry (NRDR) Dose Index Registry (DIR) with the [employer] (ACR). RADIATION OPTIMIZATION: All CT scans at this facility use at least one of these dose optimization te chniques: automated exposure control; mA and/or kV adjustment per patient size (includes targeted exa ms where dose is matched to clinical indication); or iterative reconstruction.
--- NOTE | 2023-10-08 14:48 | ED.GENADUL_ITS ---
Discharge Plan Disposition Patient Disposition: Admit to [facility] Specific Acute Inpt Facility: [facility] Condition: Stable Condition: Stable Discharge Details Chief Complaint: Chest Pain Clinical Impression: Chest pain, Non-ST elevation PA (NSTEMI) Primary Care Provider: Rodriguez Nair ED Provider: Richmond Cronin Home Meds and New Rx's Prescriptions: Continued triamcinolone acetonide 0.5 % cream 1 applic topical BID Qty: 15 0RF escitalopram oxalate 10 mg tablet 10 mg PO DAILY Qty: 90 4RF omeprazole 40 mg capsule,delayed release(DR/EC) 40 mg PO BID Qty: 180 4RF Patient Comments: pt. only takes in AM HPI General Mode of arrival: ambulatory . Date/Time Provider Initiated Documentation: 10/08/23 14:36 . Limitations to Documentation: no limitations . Information obtained by: patient . History of Present Illness 62 year old M presents to the emergency department with the chief complaint of chest burning, described as moderate, Patient started experiencing this minute(s) (30) and it has been constant. No relieving factors improve symptom(s), No exacerbating factors reported . Patient notes shortness of breath; denies diaphoresis and nausea/vomiting. Patient did receive the following treatments prior to arrival, none Related Data Home Medications ?Medication ?Instructions ?Recorded ?Confirmed triamcinolone acetonide 0.5 % 1 applic topical BID #15 grams 05/24/21 08/28/23 topical cream escitalopram oxalate 10 mg tablet 10 mg PO DAILY #90 tabs 07/22/22 08/28/23 omeprazole 40 mg capsule,delayed 40 mg PO BID #180 tab-caps 06/26/23 08/28/23 release Previous Rx's ?Medication ?Instructions ?Recorded triamcinolone acetonide 0.5 % 1 applic topical BID #15 grams 05/24/21 topical cream escitalopram oxalate 10 mg tablet 10 mg PO DAILY #90 tabs 07/22/22 omeprazole 40 mg capsule,delayed 40 mg PO BID #180 tab-caps 06/26/23 release Allergies Allergy/AdvReac Type Severity Reaction Status Date / Time No Known Allergies Allergy Verified 08/28/23 08:28 General Stated Complaint: Chest Pain MARTITA: 2 Review of Systems All systems reviewed & are unremarkable except as noted in HPI and below Constitutional Constitutional: Denies chills, Denies fever(s) and Denies weakness Cardiovascular Cardiovascular: Reports chest pain and Reports dyspnea Respiratory Respiratory: Denies cough and Reports dyspnea Gastrointestinal Gastrointestinal: Denies abdominal pain, Denies nausea and Denies vomiting Musculoskeletal Musculoskeletal: Denies joint swelling Neurologic Neurologic: Denies weakness Exam Const General: no acute distress Orientation: alert [facility] Head: normal to inspection Ears: external ears normal General nose exam: external nose normal Mouth: moist mucous membranes Eyes General: appearance normal, both eyes and all related structures Neck Neck: normal visual inspection Resp Effort & Inspection: normal respiratory effort and able to speak in complete sentences Auscultation: clear to auscultation bilaterally Cardio Jugular venous pressure: no JVD Rate: regular rate Heart Sounds: no murmurs GI Palpation: soft and nontender Skin General skin exam: no rashes or lesions noted Neuro General: patient alert and patient oriented x3 Extrem General: normal to inspection Psych Mental Status: mental status grossly normal Course Vital Signs Vital signs: Vital Signs Pulse 68 10/08/23 14:36 Respiratory Rate 16 10/08/23 14:36 Blood Pressure 166/82 H 10/08/23 14:36 Pulse Oximetry 98 10/08/23 14:36 Pulse 68 10/08/23 14:36 Respiratory Rate 16 10/08/23 14:36 Blood Pressure 166/82 H 10/08/23 14:36 Blood Pressure Position Supine 10/08/23 14:36 Pulse Oximetry 98 10/08/23 14:36 Oxygen Delivery Method Room Air 10/08/23 14:36 Oxygen Flow Rate 0 10/08/23 14:36 Pain Level 3 10/08/23 14:36 Medical Decision Making 62-year-old male with a history of Muller's esophagus found on EGD in August, GERD, depression, who comes in with chest burning sensation and feels like he cannot catch his breath. 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 He denies any radiation of his chest burning sensation, nausea vomiting, diaphoresis. He arrives ambulatory in no distress, he is speaking in full sentences and appears well. He has no JVD, no leg swelling, no calf tenderness, no abdominal tenderness. He has clear lung sounds, no murmurs. EKG unremarkable, will proceed with a CBC, CMP, troponin and likely delta troponin. He has no tearing back pain and equal peripheral pulses so doubt dissection. Given he also notes he feels like he is short of breath though he shows no signs of being short of breath will obtain CTA of the chest to evaluate for possible PE. I do suspect that his symptoms could be related to his Muller's esophagus but will rule out other etiologies. Patient asymptomatic with stable vital signs, labs and imaging unremarkable, will obtain delta troponin. Delta troponin minimally positive at 80. He remains asymptomatic. He does now note that for the past week or 2 he has noted that when he does exert himself he seems to have increased chest burning sensation. Will consult with [facility] cardiology, will give a dose of 324 mg of aspirin. spoke with shoe puller Dr. Guevara at [facility] who reviewed the case, they recommend heparin, atorvastatin, and accepted by can take him till tomorrow. They did also ask if it can be done an echo in the morning before he is transferred when the bed is open. Accepting provider is Dr. Rizvi. They did not recommend giving it second antiplatelet at this time. Will discuss with hospitalist about admission until he can be transferred tomorrow. Differential Diagnosis Differential Diagnosis: Esophagitis, esophageal spasm, PE, ACS Medical Records Medical records reviewed: Yes I reviewed the patient's medical records. Imaging Data Radiologic Study: Attestation: I personally reviewed and interpreted this imaging study as follows: Imaging: CT Scan Radiologist's impression: no acute findings Lab Data Lab results reviewed: Yes I reviewed the patient's lab results. ECG Data Attestation: I personally reviewed and interpreted this ECG (s) as follows: Prior ECG tracings: not available for review Interpretation: Sinus rhythm, rate of 65, VA 148, no STEMI Quality:SDOH Health Related Social Needs: Health related social needs inadequate housing Health related social needs details none PFSH All Active Problems (Updated 10/08/23 @ 18:54 by Richmond Cronin MD) Non-ST elevation PA (NSTEMI) (Acute) Chest pain (Acute) Elevated blood pressure reading (Acute) Wears hearing aid in both ears (Acute) Aspiration into airway (Acute) Chronic headaches (Acute) Skin lesion (Acute) Muller's esophagus (Acute ~07/2020) Major depression (Acute) Medication working GERD without esophagitis (Chronic 06/16/17) Medical History (Updated 10/08/23 @ 18:54 by Richmond Cronin MD) Kidney stone Epididymitis Lateral epicondylitis of left elbow Umbilical hernia (11/20/12) Sensorineural hearing loss, unilateral, left ear, with unrestricted hearing on the contralateral side (04/07/16) Multiple lipomas (04/02/15) Mild single current episode of major depressive disorder (04/07/16) Inguinal hernia (11/20/12) Hypercholesterolemia (02/01/08) Acute medial meniscus tear of right knee (08/10/16) tubular adenomas chronic back pain GERD (gastroesophageal reflux disease) Eczema Insomnia Surgical History (Updated 08/28/23 @ 14:40 by Elizabeth Carney) History of colonoscopy (~08/2023) History of esophagogastroduodenoscopy (EGD) (~08/2023) EGD - MAC (07/25/17) Colonoscopy - MAC (07/25/17) Colonoscopy - IV Sedation 2009- adenomatous polyp 2011- no polyps Arthroplasty of knee pt. 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 DICK Family History Mother , 51 AGE Cancer Father , 76 Heart disease Myocardial infarction Maternal Uncle Colon cancer Maternal Cousin Colon cancer Sister No problems noted. Brother No problems noted. Maternal Grandfather No problems noted. Paternal Grandfather No problems noted. Maternal Grandmother No problems noted. Paternal Grandmother No problems noted. Maternal Aunt Colon cancer Brother No problems noted. Brother No problems noted. Son , age 6 weeks No problems noted. Daughter No problems noted. 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 [employer] Pets and animals: No Sexually active: Yes Do you think of yourself as: straight/heterosexual Current gender identity: male What is your relationship status?: How often do you talk on the phone with friends or family?: once per week How often do you get together with friends or relatives?: once per week How often do you attend mu-ism or restorationism services?: 1-3 times per year Do you belong to any clubs or organized social groups?: no Panel score (0-1 are the most socially isolated patients): 1 What type of physical activity do you participate in: none Frequency: does not exercise Мария/Scientology: No preference Special мария needs: No Seatbelt use: sometimes Helmet use: No Drive intox or ride w/intox jitney driver: No Water heater temp set <120 deg: Yes Do you feel safe at home: Yes Do you feel safe in your relationship?: Yes
[2023-10-08 14:56] LABS: Abs Immature Grans 0.03 10^3/uL (0.0-0.06); Absolute Basophil Count 0.04 10^3/uL (0.0-0.2); Absolute Eosinophil Count 0.11 10^3/uL (0.0-0.7); Absolute Monocyte Count 0.69 10^3/uL (0.1-0.8); Absolute Neutrophil Count 5.06 10^3/uL (1.2-6.7); Basophils % 0.5 %; Eosinophils % 1.3 %; HCT 45.6 % (40.0-50.0); HGB 15.1 g/dL (13.5-17.5); Immature Grans % 0.4 %; Lymphocytes % 28.8 %; MCH 28.8 pg (27.0-33.0); MCHC 33.1 % (32.0-36.0); MCV 87 fL (80-95); MPV 10.7 fL (8.0-11.0); Monocytes % 8.3 %; Neutrophils % 60.7 %; Platelet Count 206 10^3/uL (130-400); RBC 5.24 10^6/uL (4.36-5.78); RDW 13.4 % (11.8-14.1); RDW-SD 42.6 fL; WBC 8.33 10^3/uL (4.4-10.8)
[2023-10-08 15:14] LABS: ALT 31 U/L (16-63); AST 21 U/L (15-37); Albumin 4.1 g/dL (3.4-5.0); Alkaline Phosphatase 82 U/L (46-116); Anion Gap 7.2 mmol/L (3-11); BUN 23 mg/dL (7-18); Bilirubin, Total 1.53 mg/dL (0.2-1.0); CO2 29.8 mmol/L (21.0-32.0); CREATININE 1.2 mg/dL (0.70-1.30); Calcium 9.3 mg/dL (8.5-10.1); Chloride 107 mmol/L (98-107); Estimated GFR 67.95 (mL/min/1.73m2); Glucose 107 mg/dL (74-106); Lipase 60 U/L (16-77); Magnesium 2.2 mg/dL (1.8-2.4); Potassium 4.2 mmol/L (3.5-5.1); Sodium 144 mmol/L (136-145); Total Protein 7.4 g/dL (6.4-8.2); Troponin I < 50 ng/L (< or =60)
--- OUTSIDE RECORDS SUMMARY | 2023-10-08 15:23 | XMS_ITS | Encounter Summary ---
Author Organization [facility] Address [address] [place] [address] Care Team Providers Care Rubber Calender Helper Name Role Phone Edwin Astudillo MD Primary Care Provider [phone] Encounter Details Date Type Department Care Team (Late st Contact Info) Description 11/23/2022 Lab Requisition [facility] Pathology & Laboratory Medicine - [facility] [address], [place] [id number] Outr Resulting Lab, Provider Social History Tobacco Use Types Packs/Day Years Used Date Smoking Tobacco: Never Assessed Interpersonal Safety Answer Date Record ed Physically Hurt Never 10/27/2019 Verbally Threaten Not on file 10/27/2019 Sex and Gender Information Value Date Recorded Sex Assigned at Not on file Gender Identity Not on file Sexual Orientation Not on file documented as of this encounter Plan of Treatment Not on file documented as of this encounter Procedures Procedure Name Priority Date/Time Associated Diagnosis Comments LYME AB Routine 11/22/2022 16:06 EDT documented in this encounter Results * LYME AB (11/22/2022 16:06 EDT) Lyme Ab Negative Negative 11/24/2022 10:28 EDT [facility] Blood VENOUS BLOOD / Unknown 11/22/2022 16:06 EDT 11/23/2022 16:56 EDT Provider Outr Resulting Lab IMMUNOLOGY A ND SEROLOGY ORDERABLES [facility] [address] [place] [address] documented in this encounter Visit Diagnoses Not on filedocumented in this encounter Care Teams Rubber Calender Helper Relationship Specialty Start Date End Date Edwin Astudillo MD PCP - General 07/27/17 documented as of this encounter
--- OUTSIDE RECORDS SUMMARY | 2023-10-08 15:23 | XMS_ITS | Encounter Summary ---
Author Organization [facility] Address [address] [place] [address] Care Team Providers Care Communication Technician Name Role Phone Unknown, Provider Primary Care Provider Encounter Details Date Type Department Care Team (Late st Contact Info) Description 12/05/2012 Results Only [facility] - [facility] ([facility]) [address] [place] [address], [place] [id number] Aldair Cabrera MD [address] [place] [address] Social History Tobacco Use Types Packs/Day Years Used Date Smoking Tobacco: Never Assessed Sex and Gender Information Value Date Recorded Sex Assigned at Not on file Gender Identity Not on file Sexual Orientation Not on file documented as of this encounter Plan of Treatment Not on file documented as of this encounter Procedures Procedure Name Priority Date/Time Associated Diagnosis Comments SURGICAL PATHOLOGY Routine 12/05/2012 8:31 EDT documented in this encounter Results * SURGICAL PATHOLOGY (12/05/2012 8:31 EDT) Pathology Report: SURGICAL PATHOLOGY REPORT Reports generated via electronic interface contain original data; however they are lacking the format of the original report. Caution should be taken when reading/interpreti ng unformatted reports. Name: ? DESEAN WATT ? Accession #: ? [id number] ? : ? 1960 (Age: 52) ??M ? Collect Date: ? 12/05/2012 ? Location: ? [facility] ? Receive Date: ? 12/05/2012 ? Provider: ALDAIR CABRERA MD Copy to: JASPER HAINES MD ? Final Pathologic Diagnosis: A. CECUM, POLYPS, BIOPSIES: - ??Colonic mucosa with no specific pathologic features. B. COLON, SPLENIC FLEXURE, POLYPS, BIOPSIES: - ??Tubular adenoma. C. SIGMOID POLYPS, BIOPSIES: - ??Hyperplastic polyp. Comment: Deeper levels of specimen A, B and C were reviewed. Dr. Morales 12/10/2012 01:37 PM Document reviewed and electronically signed by: ALFONSO CANCHOLA MD Report ??Date: 12/10/2012 14:41 By the signature above, the attending physician certifies that he/she has personally conducted a gross and/or microscopic examination of the described specimens and rendered or confirmed the above diagnosis. Specimen(s) Received: A. ??Cecal polyps x2 B. ??Splenic flexure polyps x2 C. ??Sigmoid polyp x2 Clinical History: H/O colon adenomas Gross Description: A. ?Received in formalin labelled with proper patient identification (initials S, B) and cecal polyps x2 are two light reeves tissues (0.4 x 0.2 x 0.2 cm and 0.5 x 0.3 x 0.2 cm). Entirely submitted in block A1. B. ?Received in formalin labelled with proper patient identification (initials S, B) and splenic flexure polyp are two light reeves tissues (0.2 x 0.2 x 0.1 cm and 0.3 x 0.2 x 0.2 cm). Entirely submitted in block B1. C. ?Received in formalin labelled with proper patient identification (initials S, B) and sigmoid polyp x2 are two light reeves tissues (0.2 x 0.2 x 0.2 cm and 0.3 x 0.2 x 0.2 cm). Entirely submitted in block C1. Daysi Lott 12/06/2012 09:49 AM End of Report [facility] 12/05/2012 8:31 EDT 12/05/2012 8:31 EDT Aldair Cabrera MD PATHOLOGY ORDERABLES Performing Organization Address [facility] Co [facility] Phone Number [facility] [address] [place] [address] documented in this encounter Visit Diagnoses Not on filedocumented in this encounter Care Teams Communication Technician Relationship Specialty Start Date End Date Unknown, Provider, PCP - General 11/02/09 12/06/12 documented as of this encounter
--- OUTSIDE RECORDS SUMMARY | 2023-10-08 15:23 | XMS_ITS | Encounter Summary ---
Author Organization [facility] Address [address] [place] [address] Care Team Providers Care Sales Branch Manager Name Role Phone Edwin Astudillo MD Primary Care Provider Encounter Details Date Type Department Care Team (Late st Contact Info) Description 05/31/2020 Lab Requisition [facility] Pathology & Laboratory Medicine - [facility] [address], [place] [address] Outr Resulting Lab, Provider Social History Tobacco [...] Procedure Name Priority Date/Time Associated Diagnosis Comments CHLAMYDIA/N. GONORRHOEAE AMPLIFIED NUCLEIC ACID Routine 05/31/2020 9:13 EST documented in this encounter Results * CHLAMYDIA/N. GONORRHOEAE AMPLIFIED RNA (05/31/2020 9:13 EST) Neisseria gonorrhoeae Result Negative Negative 06/01/2020 15:22 EST [facility] Chlamydia trachomatis Result Negative Negative 06/01/2020 15:22 EST [facility] Urine URINE / Unknown 05/31/2020 9 :13 EST 05/31/2020 18:15 EST Provider Outr Resulting Lab MICROBIOLOGY - GENERAL ORDERABLES Performing Organization Address City/State/[facility] Co de Phone Number [facility] [address] [place] [address] documented in this encounter Visit Diagnoses Not on filedocumented in this encounter Care Teams Sales Branch Manager Relationship Specialty Start Date End Date Edwin Astudillo MD PCP - General 07/27/17 documented as of this encounter
--- OUTSIDE RECORDS SUMMARY | 2023-10-08 15:23 | XMS_ITS | Encounter Summary ---
Author Organization [facility] Address [address] [place] [address] Care Team Providers Care Liquor Grinder Mill Operator Name Role Phone Alek Mata MD Primary Care Provider [phone] Encounter Details Date Type Department Care Team (Late st Contact Info) Description 07/25/2017 Results Only [facility] [phone] Adriane Alves MD [address] [place] [address] [place], [place] [id number] Social History Tobacco Use Types Packs/Day Years Used Date Smoking Tobacco: Never Assessed Sex and Gender Information Value Date Recorded Sex Assigned at Not on file Gender Identity Not on file Sexual Orientation Not on file documented as of this encounter Plan of Treatment Not on file documented as of this encounter Procedures Procedure Name Priority Date/Time Associated Diagnosis Comments SURGICAL PATHOLOGY Routine 07/25/2017 22 :04 EDT documented in this encounter Results * SURGICAL PATHOLOGY (07/25/2017 22:04 EDT) Pathology Report: SURGICAL PATHOLOGY REPORT Reports generated via electronic interface contain original data; however they are lacking the format of the original report. Caution should be taken when reading/interpretin g unformatted reports. Name: ? DESEAN WATT ? Accession #: ? [id number] ? : ? 1960 (Age: 56) ??M ? Collect Date: ? 07/25/2017 ? Location: ? [facility] ? Receive Date: ? 07/25/2017 ? Provider: ADRIANE ALVES MD Copy to: JOSETTE MIXON MD ? Final Pathologic Diagnosis: A. STOMACH, ANTRUM, BIOPSY: - ??Fundic and antral mucosa with mild reactive gastropathy. - ??No Helicobacter pylori-like organisms identified on H&E-stained sections. B. GASTROESOPHAGEAL JUNCTION, BIOPSY: [...] confirmed the above diagnosis. Specimen(s) Received: A. ??Antrum bx B. ??GE junction bx C. ??Ascending colon polyp D. ??Sigmoid polyp x 2 Clinical History: Reflux, gastritis, esophagitis, family hx and pt hx colon polyps Gross Description: A. ?Received in formalin labelled with proper patient identification (initials S, B) and antrum bx are three pink-reeves tissues (0.3 x 0.2 x 0.2 cm, 0.3 x 0.2 x 0.2 cm and 0.7 x 0.2 x 0.2 cm). Entirely submitted in A1. B. ?Received in formalin labelled with proper patient identification (initials S, B) and GE junction are three pink-reeves tissues (0.2 x 0.2 x 0.2 cm, 0.2 x 0.2 x 0.2 cm and 0.3 x 0.2 x 0.2 cm). Entirely submitted in B1. C. ?Received in formalin labelled with proper patient identification (initials S, B) and ascending colon polyp is a single pink-reeves tissue fragment (0.4 x 0.2 x 0.2 cm). Submitted intact in C1. D. ?Received in formalin labelled with proper patient identification (initials S, B) and sigmoid polyps x2 are two pink-reeves tissues (0.2 x 0.2 x 0.2 cm and 0.3 x 0.2 x 0.2 cm). Entirely submitted in D1. SUSY Rebollar (ASCP) 07/26/2017 7:50 AM End of Report [facility] 07/25/2017 22:0 4 EDT 07/25/2017 22:04 EDT Adriane Alves MD PATHOLOGY ORDERA [facility] Organization Address City/State/ZIP Co de Phone Number [facility] [address] [place] [address] documented in this encounter Visit Diagnoses Not on filedocumented in this encounter Care Teams Liquor Grinder Mill Operator Relationship Specialty Start Date End Date Alek Mata MD [address] [place] [phone] PCP - General 12/07/12 07/26/17 documented as of this encounter
--- OUTSIDE RECORDS SUMMARY | 2023-10-08 15:23 | XMS_ITS | Encounter Summary ---
Author Organization [facility] Address [address] [place] [address] Care Team Providers Care Yard Loader Operator Name Role Phone Edwin Astudillo MD Primary Care Provider [phone] Encounter Details Date Type Department Care Team (Late st Contact Info) Description 08/03/2020 Lab Requisition [facility] Pathology & Laboratory Medicine - [facility] [address] [place] [address] Montez Gaffney MD [address] [place] [address] [address] [place], [place] [phone] Encounter for other general examination Social History Tobacco Use Types Packs/Day Years [...] Priority Date/Time Associated Diagnosis Comments SURGICAL PATHOLOGY Today 08/03/2020 9: 58 EDT Encounter for other general examination documented in this encounter Results * SURGICAL PATHOLOGY (08/03/2020 9:58 EDT) Final Diagnosis A. STOMACH, ANTRUM, BIOPSY: - Gastric body mucosa with no specific pathologic features. B. GASTROESOPHAGEAL JUNCTION, BIOPSY: - Intestinal metaplasia in a background of reflux esophagitis. - Negative for dysplasia. C. COLON, ASCENDING, POLYP, BIOPSY: - Fragments of tubulovillous adenoma. 08/06/2020 11:48 EDT [facility] Attestation By the signature below, the attending physician certifies that they have 1) personally conducted a gross and/or microscopic examination of the described specimen(s), and/or personally interpreted the results of laboratory testing of the described specimen(s), and 2) personally rendered or confirmed the above diagnosis. 08/06/2020 11:48 EDT [facility] at 1147 Clinical History GERD, family history colon cancer, bowel habit changes 08/06/2020 11:48 EDT [facility] Gross Description A. Received in formalin labelled with proper patient identification (initials S, B) and antrum Bx is a single fragment of reeves tissue (0.3 x 0.3 x 0.2 cm). The specimen is submitted in A1. B. Received in formalin labelled with proper patient identification (initials S, B) and GE junction Bx are 2 fragments of reeves tissue measuring 0.3 cm and 0.6 cm in greatest dimension. The specimens are submitted in B1. C. Received in formalin labelled with proper patient identification (initials S, B) and ascending colon polyp are multiple fragments of reeves polypoid tissue (1.0 x 1.0 x 0.5 cm in aggregate). The specimens are submitted in C1. SUSY SUN(ASCP) 08/03/2020 16:06 08/06/2020 11:48 EDT [facility] Performing Lab [facility] 11:48 EDT [facility] Scanned Images 08/06/2020 11:48 EDT [facility] Tissue STOMACH STRUCTURE / Unknown 08/03/2020 9:58 EDT 08/03/2020 16:01 EDT Tissue specimen (specimen) ESOPHAGEAL STRUCTURE / Unknown 08/03/2020 9:58 EDT 08/03/2020 16:01 EDT Tissue specimen (specimen) POLYP OF COLON / Unknown 08/03/2020 9:58 EDT 08/03/2020 16:01 EDT Montez Gaffney MD PATHOLOGY ORDERA BLES [facility] [address] [place] [address] documented in this encounter Visit Diagnoses Diagnosis Encounter for other general examination documented in this encounter Care Teams Yard Loader Operator Relationship Specialty Start Date End Date Edwin Astudillo MD PCP - General 07/27/17 documented as of this encounter
--- OUTSIDE RECORDS SUMMARY | 2023-10-08 15:23 | XMS_ITS | Clinical Summary ---
Author Organization [facility] Address [address] [place] [address] Care Team Providers Care Assembly And Packing Supervisor Name Role Phone Edwin Astudillo MD Primary Care Provider [phone] Encounters Date Type Department Care Team Description 08/28/2023 Lab Requisition [facility] Pathology & Laboratory Medicine - [facility] [address] [place] [address] Pablo Silva MD Encounter for other general examination from Last 3 Months Social History Tobacco Use Types Packs/Day Years Used Date Smoking Tobacco: Never Assessed Interpersonal Safety Answer Date Record ed Physically Hurt Never 10/27/2019 Verbally Threaten Not on file 10/27/2019 Sex and Gender Information Value Date Recorded Sex Assigned at Not on file Gender Identity Not on file Sexual Orientation Not on file Plan of Treatment Health Maintenance Due Date Last Done Comments Hepatitis C Screen 1960 RSV Immunization ( o r 60+ Years) (1 - 1-dose 60+ series) 2019 COVID-19 Vaccine (2022-24 season) 2022 Procedures Procedure Name Priority Date/Time Associated Diagnosis Comments SURGICAL PATHOLOGY Today 08/28/2023 9: 25 EDT Encounter for other general examination from Last 3 Months Results * SURGICAL PATHOLOGY (08/28/2023 9:25 EDT) Note to Patient The following pathology results have been interpreted by your pathologist and may be available to you before your health provider has had the opportunity to review them. Please allow time for your provider to receive these results and explore management options, if applicable. 08/30/2023 10:42 EDT [facility] Final Diagnosis A. STOMACH, ANTRUM, BIOPSY: - Gastric antral type mucosa with reactive (chemical) gastropathy. - Negative for Helicobacter pylori on H&E stained sections. B. STOMACH, POLYP, BIOPSY: - Hyperplastic polyp. C. ESOPHAGUS, DISTAL, BIOPSY: - Reactive squamocolumnar junctional mucosa consistent with reflux esophagitis. - Negative for intestinal metaplasia; negative for dysplasia D. COLON, TRANSVERSE, POLYP X2, BIOPSY: - Tubular adenoma. 08/30/2023 10:42 [facility] Attestation By the signature below, the attending physician certifies that they have 1) personally conducted a gross and/or microscopic examination of the described specimen(s), and/or personally interpreted the results of laboratory testing of the described specimen(s), and 2) personally rendered or confirmed the above diagnosis. 08/30/2023 10:42 [facility] at 1042 Clinical History History Muller's esophagus, history colon polyps 08/30/2023 10:42 [facility] Gross Description A. Received in formalin labelled with proper patient identification (initials S, B) and antrum is a 0.3 x 0.3 x 0.3 cm reeves irregular soft tissue fragment. Entirely submitted in A1. B. Received in formalin labelled with proper patient identification (initials S, B) and stomach polyp is a 0.2 x 0.2 x 0.2 cm reeves irregular soft tissue fragment. Entirely submitted in B1. C. Received in formalin labelled with proper patient identification (initials S, B) and distal esophagus are 2 reeves irregular soft tissue fragments each averaging 0.3 x 0.3 x 0.3 cm. Entirely submitted in C1. D. Received in formalin labelled with proper patient identification (initials S, B) and transverse colon polyp x2 are 2 reeves irregular soft tissue fragments each averaging 0.2 x 0.2 x 0.2 cm. Entirely submitted in D1. SUSY TANG(ASCP) 08/29/2023 7:34 08/30/2023 10:42 [facility] Performing Lab [facility] 08/30/2023 10:42 [facility] Scanned Images 08/30/2023 10:42 EDT [facility] Tissue TRANSVERSE COLON STRUCTURE / Unknown 08/28/2023 9:25 EDT 08/28/2023 18:16 EDT Tissue specimen (specimen) STOMACH STRUCTURE / Unknown 08/28/2023 9:25 EDT 08/28/2023 18:16 EDT Tissue specimen (specimen) ESOPHAGEAL STRUCTURE / Unknown 08/28/2023 9:25 EDT 08/28/2023 18:16 EDT Tissue specimen (specimen) TRANSVERSE COLON STRUCTURE / Unknown 08/28/2023 9:25 EDT 08/28/2023 18:16 EDT Pablo Silva MD PATHOLOGY ORDERABLES [facility] [address] [place] [address] from Last 3 Months Care Teams Assembly And Packing Supervisor Relationship Specialty Start Date End Date Edwin Astudillo MD [facility] - General 07/27/17
--- OUTSIDE RECORDS SUMMARY | 2023-10-08 15:23 | XMS_ITS | Encounter Summary ---
Author Organization [facility] Address [address] [place] [address] Care Team Providers Care Education And Development Manager Name Role Phone Edwin Astudillo MD Primary Care Provider [phone] Encounter Details Date Type Department Care Team (Late st Contact Info) Description 04/21/2021 Lab Requisition [facility] Pathology & Laboratory Medicine - [facility] [address] [place], [place] [phone] Outr Resulting Lab, Provider Social History Tobacco [...] Procedure Name Priority Date/Time Associated Diagnosis Comments PSA TOTAL, DIAGNOSTIC Routine 04/21/2021 11:49 EST documented in this encounter Results * PSA TOTAL, DIAGNOSTIC (04/21/2021 11:49 EST) PSA 0.5 0.0 - 4.5 ng/mL 04/21/2021 21:56 EST [facility] Blood VENOUS BLOOD / Unknown 04/21/2021 11:49 EST 04/21/2021 21:10 EST Narrative [facility] - 04/21/2021 21:56 EST NOTE: Serum PSA concentration should not be interpreted as absolute evidence for the presence or absence of malignant disease. Assayed on Siemens [employer] XPT using chemiluminescent technology.??Values obtained by using different assay methods cannot be used interchangeably. Provider Outr Resulting Lab CHEMISTRY & BLOOD GAS ORDERABLES [facility] [address] [place] [id number] documented in this encounter Visit Diagnoses Not on filedocumented in this encounter Care Teams Education And Development Manager Relationship Specialty Start Date End Date Edwin Astudillo MD PCP - General 07/27/17 documented as of this encounter
--- OUTSIDE RECORDS SUMMARY | 2023-10-08 15:23 | XMS_ITS | Encounter Summary ---
Author Organization [facility] Address [address] [place] [address] Care Team Providers Care Machine Programmer Name Role Phone Edwin Astudillo MD Primary Care Provider [phone] Encounter Details Date Type Department Care Team (Late st Contact Info) Description 08/28/2023 Lab Requisition [facility] Pathology & Laboratory Medicine - [facility] [address] [place] [address] Pablo Silva MD [address] [place] [phone] Encounter for other general examination Social History [...] 25 EDT Encounter for other general examination documented in this encounter Results * SURGICAL PATHOLOGY (08/28/2023 9:25 EDT) Note to Patient The following pathology results have been interpreted by your pathologist and may be available to you before your health provider has had the opportunity to review them. Please allow time for your provider to receive these results and explore management options, if applicable. 08/30/2023 10:42 EDT [facility] Final Diagnosis A. STOMACH, [...] X2, BIOPSY: - Tubular adenoma. 08/30/2023 10:42 [facility] Attestation By the signature below, the attending physician certifies that they have 1) personally conducted a gross and/or microscopic examination of the described specimen(s), and/or personally interpreted the results of laboratory testing of the described specimen(s), and 2) personally rendered or confirmed the above diagnosis. 08/30/2023 10:42 [facility] at 1042 Clinical History History Muller's esophagus, history colon polyps 08/30/2023 10:42 [facility] Gross Description A. Received in [...] D1. SUSY TANG(ASCP) 08/29/2023 7:34 08/30/2023 10:42 [facility] Performing Lab [facility] 08/30/2023 10:42 [facility] Scanned Images 08/30/2023 10:42 [facility] Tissue TRANSVERSE COLON STRUCTURE / Unknown 08/28/2023 9:25 EDT 08/28/2023 18:16 EDT Tissue specimen (specimen) STOMACH STRUCTURE / Unknown 08/28/2023 9:25 EDT 08/28/2023 18:16 EDT Tissue specimen (specimen) ESOPHAGEAL STRUCTURE / Unknown 08/28/2023 9:25 EDT 08/28/2023 18:16 EDT Tissue specimen (specimen) TRANSVERSE COLON STRUCTURE / Unknown 08/28/2023 9:25 EDT 08/28/2023 18:16 EDT Pablo Silva MD PATHOLOGY ORDERABLES [facility] [address] [place] [address] documented in this encounter Visit Diagnoses Diagnosis Encounter for other general examination documented in this encounter Care Teams Machine Programmer Relationship Specialty Start Date End Date Edwin Astudillo MD PCP - General 07/27/17 documented as of this encounter
--- OUTSIDE RECORDS SUMMARY | 2023-10-08 15:23 | XMS_ITS | Encounter Summary ---
Author Organization [facility] Address [address] [place] [address] Care Team Providers Care Sole Leveler Machine Name Role Phone Unknown, Provider Primary Care Provider [phone] Encounter Details Date Type Department Care Team (Late st Contact Info) Description 11/02/2009 Results Only [facility] - [facility] [address] [place], [place] [phone] Aldair Cabrera MD [address] [place] [address] Social History Tobacco Use Types [...] Date/Time Associated Diagnosis Comments SURGICAL PATHOLOGY Routine 11/02/2009 0:00 EDT documented in this encounter Results * SURGICAL PATHOLOGY (11/02/2009 0:00 EDT) Pathology Report: SURGICAL PATHOLOGY REPORT ? Reports generated via electronic interface contain original data; ? however they are lacking the format of the original report. ? Caution should be taken when reading/interpreti ng unformatted reports. ? Name: ? SHUKRI, DESEAN ? Accession #: ? [id number] ? : ? 1960 (Age: 49) ??M ? Collect Date: ? 11/02/2009 ? Location: ? [facility] ? Receive Date: ? 11/02/2009 ? Provider: ALDAIR CONTRERASO MD ? Copy to: CHANDLER RYAN MD ? Final Pathologic Diagnosis: ? A. ?Colon, transverse, polyps, biopsies: ? 1. ?Fragments of tubular adenomas. ? B. ?Colon, sigmoid, polyps, biopsies: ? 1. ?Hyperplastic polyps. ??See comment. ? Comment: ? Cylinder Head Assembler sections of this case have been reviewed at the ? intradepartmental consultation conference. ??(Dr. Bowman)/christianon ? Document reviewed and electronically signed by: ? CAMMY BOWMAN MD ? Report ??Date: 11/04/2009 16:22 ? By the signature above, the attending physician certifies that he/she has ? personally conducted a gross and/or microscopic examination of the described ? specimens and rendered or confirmed the above diagnosis. ? Specimen(s) Received: ? A. ?Transverse colon polyp x2 (#1) ? B. ? Sigmoid polyp x3 (#2) ? Clinical History: ? Colorectal screening ? Gross Description: ? Received in Maria Esther's fixative labelled Desean Watt and #1 ??transverse colon polyp x2 are six pieces of firm tissue which range from 0.4 x 0.4 x 0.3 ?? cm to 0.2 x 0.1 x 0.1 cm, with three submitted as (A1) and the remaining three ?? as (A2). ? Received in Hollande's fixative labelled Shukri, Desean and #2 ??sigmoid polyp ?? x3 are four pieces of tissue which range from 0.3 x 0.3 x 0.2 cm to 0.2 x 0.1 x 0.1 cm, with two submitted as (B1) and the remaining two as (B2). ??(J. ? Tessitore)/kmm ? End of Report ? [facility] 11/02/2009 11/02/2009 19: 30 EDT Aldair Cabrera MD PATHOLOGY ORDERABLES [facility] [address] [place] [address] documented in this encounter Visit Diagnoses Not on filedocumented in this encounter Care Teams Sole Leveler Machine Relationship Specialty Start Date End Date Unknown, Provider, PCP - General 11/02/09 12/06/12 documented as of this encounter
--- OUTSIDE RECORDS SUMMARY | 2023-10-08 15:23 | XMS_ITS | Referral Summary ---
Author Organization [facility] Address [address] [place] [address] Care Team Providers Care Clinical Trials Nurse Name Role Phone Edwin Astudillo MD Primary Care Provider [phone] Encounters Date Type Department Care Team Description 08/28/2023 Lab Requisition [facility] Pathology & Laboratory Medicine - [facility] [address] [place] [address] Pablo Silva MD Encounter for other general [...] Orientation Not on file Plan of Treatment Not on file Procedures Procedure Name Priority Date/Time Associated Diagnosis [...] management options, if applicable. 08/30/2023 10:42 EDT [facility] Final Diagnosis A. STOMACH, ANTRUM, [...] X2, BIOPSY: - Tubular adenoma. 08/30/2023 10:42 [facility] Attestation By the signature below, the attending physician certifies that they have 1) personally conducted a gross and/or microscopic examination of the described specimen(s), and/or personally interpreted the results of laboratory testing of the described specimen(s), and 2) personally rendered or confirmed the above diagnosis. 08/30/2023 10:42 [facility] at 1042 Clinical History History Muller's esophagus, history colon polyps 08/30/2023 10:42 [facility] Gross Description A. [...] D1. SUSY TANG(ASCP) 08/29/2023 7:34 08/30/2023 10:42 [facility] Performing Lab [facility] 08/30/2023 10:42 [facility] Scanned Images 08/30/2023 10:42 [facility] Tissue TRANSVERSE COLON STRUCTURE / Unknown 08/28/2023 9:25 EDT 08/28/2023 18:16 EDT Tissue specimen (specimen) STOMACH STRUCTURE / Unknown 08/28/2023 9:25 EDT 08/28/2023 18:16 EDT Tissue specimen (specimen) ESOPHAGEAL STRUCTURE / Unknown 08/28/2023 9:25 EDT 08/28/2023 18:16 EDT Tissue specimen (specimen) TRANSVERSE COLON STRUCTURE / Unknown 08/28/2023 9:25 EDT 08/28/2023 18:16 EDT Pablo Silva MD PATHOLOGY ORDERABLES [facility] [address] [place] [address] from Last 3 Months Care Teams Clinical Trials Nurse Relationship Specialty Start Date End Date Edwin Astudillo MD PCP - General 07/27/17
--- OUTSIDE RECORDS SUMMARY | 2023-10-08 15:23 | XMS_ITS | Encounter Summary ---
Author Organization [facility] Address [address] [place] [id number] Care Team Providers Care Window Display Designer Name Role Phone Alek Mata MD Primary Care Provider [phone] Encounter Details Date Type Department Care Team (Latest Contact Info) Description 07/25/2017 13:23 EDT - 07/25/2017 23:59 EDT Hospital Encounter [address] [address] Unknown, Provider, Discharge Disposition: Home or Self Care Social History Tobacco Use Types Packs/Day Years Used Date Smoking Tobacco: Never Assessed Sex and Gender Information Value Date Recorded Sex Assigned at Not on file Gender Identity Not on file Sexual Orientation Not on file documented as of this encounter Discharge Disposition Disposition Code Departure Means Destination Home or Self Alf documented in this encounter Plan of Treatment Not on file documented as of this encounter Visit Diagnoses Not on filedocumented in this encounter Care Teams Window Display Designer Relationship Specialty Start Date End Date Alek Mata MD [address] [place] [address] [address] [place] [address] PCP - General 12/07/12 07/26/17 documented as of this encounter
[2023-10-08] MEDS: Normal Saline - Diluent 50 ML VIAL IJ (15:39)
[2023-10-08] MEDS: Omnipaque 350 MG/ML 100 ML BTL IJ (15:40)
[2023-10-08 18:01] LABS: Troponin I 80 ng/L (< or =60)
[2023-10-08] MEDS: Aspirin 81 MG CHEW 324 MG CH (18:16)
[2023-10-08] MEDS: Heparin in 0.45% NaCl 25,000 UNIT/250 ML BAG 10 UNIT IV (19:14)
[2023-10-08] MEDS: Atorvastatin 40 MG TAB 80 MG PO (19:14)
[2023-10-08 19:25] LABS: INR 1.1 (0.9-1.1); PTT Activated 23.9 sec (23.6-32.8); Prothrombin Time 10.6 sec (9.1-11.1)
--- NOTE | 2023-10-08 19:55 | W.PM.HP.N ---
Date of service: 10/08/23 Time of Service: 19:55 Assessment and Plan Assessment and plan (1) Non-ST elevation [place] (NSTEMI): Status: Acute Assessment and plan: NSTEMI, without any hemodynamic complications evident. Will continue ASA, heparin, statin and have NPO overnight for planned transfer and presumed cath. Will hold on any beta samuel as pulse is auto-controlled. Will give low dose Ativan as well.Will trend out troponins. History of Present Illness History of Present Illness Chief Complaint: CP Narrative: 62 male reports several weeks of exertional chest burning sensation, substernal, without radiation. Resolves within minutes with rest. Today had more persistent episode, associated with nausea , SOB and diaphoresis, did not resolve with rest and lasted at least 40 minutes, so came to ER. In ER pain had essentially resolved. Work up shows normal EKG, negative chest CTA, first troponin negative but second +@ 80. case reviewed with [facility] cardiology, to be treated as NSTEMI. Given ASA ([facility] requested hold second antiplatelet agent), heparin and statin. Patient is accepted to service of Dr. Rizvi for the AM. At present states he is pain free. No history of DM, non-smoker, does not know cholesterol. Does allow that he is feeling a little anxious. Notably (see exam) states his baseline pulse is approx 60. Review of Systems Narrative: per HPI PFSH All Active Problems Non-ST elevation PA (NSTEMI) (Acute) Chest pain (Acute) Elevated blood pressure reading (Acute) Wears hearing aid in both ears (Acute) Aspiration into airway (Acute) Chronic headaches (Acute) Skin lesion (Acute) Muller's esophagus (Acute ~07/2020) Major depression (Acute) Medication working GERD without esophagitis (Chronic 06/16/17) Medical History Kidney stone Epididymitis Lateral epicondylitis of left elbow Umbilical hernia (11/20/12) Sensorineural hearing loss, unilateral, left ear, with unrestricted hearing on the contralateral side (04/07/16) Multiple lipomas (04/02/15) Mild single current episode of major depressive disorder (04/07/16) Inguinal hernia (11/20/12) Hypercholesterolemia (02/01/08) Acute medial meniscus tear of right knee (08/10/16) tubular adenomas chronic back pain GERD (gastroesophageal reflux disease) Eczema Insomnia Surgical History History of colonoscopy (~08/2023) History of esophagogastroduodenoscopy (EGD) (~08/2023) EGD - MAC (07/25/17) Colonoscopy - MAC (07/25/17) Colonoscopy - IV Sedation 2009- adenomatous polyp 2011- no polyps Arthroplasty of knee pt. 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 DICK Family History Mother , 51 AGE Cancer Father , 76 Heart disease Myocardial infarction Maternal Uncle Colon cancer Maternal Cousin Colon cancer Sister No problems noted. Brother No problems noted. Maternal Grandfather No problems noted. Paternal Grandfather No problems noted. Maternal Grandmother No problems noted. Paternal Grandmother No problems noted. Maternal Aunt Colon cancer Brother No problems noted. Brother No problems noted. Son , age 6 weeks No problems noted. Daughter No problems noted. Social History Smoking/Tobacco Use Status: Former Tobacco Use tobacco type: cigarettes Quit Date: 03/27/84 Tobacco: How many years used: 10 Second Hand Exposure: Yes Smoking risk assessment performed?: Yes Alcohol Intake: former Drug use: Never Substance use type: does not use Household members: spouse Housing: house Communication Needs: None Do you need help understanding health information?: Never current occupation: SELF EMPLOYED [employer] Pets and animals: No Sexually active: Yes Do you think of yourself as: straight/heterosexual Current gender identity: male What is your relationship status?: How often do you talk on the phone with friends or family?: once per week How often do you get together with friends or relatives?: once per week How often do you attend yarsani or sabianism services?: 1-3 times per year Do you belong to any clubs or organized social groups?: no Panel score (0-1 are the most socially isolated patients): 1 What type of physical activity do you participate in: none Frequency: does not exercise Мария/Judaism: No preference Special мария needs: No Seatbelt use: sometimes Helmet use: No Drive intox or ride w/intox entry driver operator: No Water heater temp set <120 deg: Yes Do you feel safe at home: Yes Do you feel safe in your relationship?: Yes Meds Allergies and Home Medications Allergies Allergy/AdvReac Type Severity Reaction Status Date / Time No Known Allergies Allergy Verified 08/28/23 08:28 Home Medications ?Medication ?Instructions ?Recorded ?Confirmed ?Type triamcinolone acetonide 0.5 % 1 applic topical BID #15 grams 05/24/21 08/28/23 Rx topical cream escitalopram oxalate 10 mg tablet 10 mg PO DAILY #90 tabs 07/22/22 08/28/23 Rx omeprazole 40 mg capsule,delayed 40 mg PO BID #180 tab-caps 06/26/23 08/28/23 Rx release Exam Narrative Exam Narrative: 154/77, 51, temp not recorded, 13, 97% RA. HEENT atraumatic; neck supple, JVP<4; lungs clear; heart RRR w/o MRG; abdomen soft and NT; extremities w/o edema, pulses 2+/=; neuro Ox3, lucid, moves all 4s Results Labs 10/08/23 14:39 10/08/23 14:39 Labs: Laboratory Results - last 24 hr 10/08/23 10/08/23 10/08/23 14:39 17:22 19:03 WBC 8.33 RBC 5.24 Hgb 15.1 Hct 45.6 MCV 87 MCH 28.8 MCHC 33.1 RDW 13.4 Plt Count 206 MPV 10.7 Immature Gran % 0.4 Neutrophils % 60.7 Lymphocytes % 28.8 Monocytes % 8.3 Eosinophils % 1.3 Basophils % 0.5 Nucleated RBC % 0.0 Absolute Neutrophils 5.06 Absolute Lymphocytes 2.40 Absolute Monocytes 0.69 Absolute Eosinophils 0.11 Absolute Basophils 0.04 PT 10.6 INR 1.1 APTT 23.9 Sodium 144 Potassium 4.2 Chloride 107 Carbon Dioxide 29.8 Anion Gap 7.2 BUN 23 H Creatinine 1.2 Est GFR (CKD-EPI 2020) 67.95 Glucose 107 H Calcium 9.3 Magnesium 2.2 Total Bilirubin 1.53 H AST 21 ALT 31 Alkaline Phosphatase 82 Troponin I < 50 80 H* Total Protein 7.4 Albumin 4.1 Lipase 60 13Last Vital Signs Pulse 51 L 10/08/23 19:16 Resp 13 10/08/23 19:16 BP 154/77 H 10/08/23 19:16 Pulse Ox 97 10/08/23 19:16 Time Spent Time spent with Patient: 55-74 minutes Time was spent: preparing to see the patient(eg.review tests), obtaining and/or reviewing separately otained hiistory, ordering medications,tests, procedures, referring, communicating with other health veterinarian laboratory animal care and indepentently interpreting results
--- NOTE | 2023-10-08 20:55 | W.PC.ACHO ---
Registration Status: Primary Language: Preferred Language: ED Information & Data Chief Complaint Chest Pain 10/08/23 14:51 Triage Note Was painting today and 10/08/23 14:36 approx 30 mins ago started with non-radiating sternal chest pain described as burning. Has gotten slightly better since resting but still present. States he feels short of breath but does not appear dyspnic. Denies dizziness, nausea, other symptoms. Medical / Surgical History (Last Reviewed 10/08/23 @ 20:02 by Jorge Alberto Minaya MD) Kidney stone Epididymitis Lateral epicondylitis of left elbow Umbilical hernia (11/20/12) Sensorineural hearing loss, unilateral, left ear, with unrestricted hearing on the contralateral side (04/07/16) Multiple lipomas (04/02/15) Mild single current episode of major depressive disorder (04/07/16) Inguinal hernia (11/20/12) Hypercholesterolemia (02/01/08) Acute medial meniscus tear of right knee (08/10/16) tubular adenomas chronic back pain GERD (gastroesophageal reflux disease) Eczema Insomnia (Last Reviewed 10/08/23 @ 20:02 by Jorge Alberto Minaya MD) History of colonoscopy (~08/2023) History of esophagogastroduodenoscopy (EGD) (~08/2023) EGD - MAC (07/25/17) Colonoscopy - MAC (07/25/17) Colonoscopy - IV Sedation Arthroplasty of knee Amputation Most Recent Vital Signs Temperature 36.6 C 10/08/23 20:33 Pulse 52 L 10/08/23 20:33 Pulse 60 10/08/23 20:33 Respiratory Rate 13 10/08/23 20:33 Respiratory Effort Normal 10/08/23 14:48 Respiratory Depth Normal 10/08/23 14:48 Respiratory Pattern Normal 10/08/23 14:48 Blood Pressure 166/88 H 10/08/23 20:33 Blood Pressure Mean 111 10/08/23 20:33 Blood Pressure Position Supine 10/08/23 14:36 Pulse Oximetry 97 10/08/23 20:33 Oxygen Delivery Method Room Air 10/08/23 14:36 Oxygen Flow Rate 0 10/08/23 14:36 Pain Level 0 10/08/23 15:33 Allergies No Known Allergies Allergy (Verified 08/28/23 08:28) Precautions Isolation Standard precaution 10/08/23 14:48 Active Medications Generic Name Dose Route Start Last Admin Trade Name Emily PRN Reason Stop Dose Admin Heparin Sodium/Sodium Chloride 25,000 unit in 250 mls @ 10 mls/hr 10/08/23 18:45 10/08/23 19:14 IV 1,000 units/hr INFUSION EMILY 10 mls/hr Administration Protocol 1,000 UNITS/HR Iohexol 100 ml 10/08/23 15:45 10/08/23 15:40 Omnipaque 350 Mg/Ml 100 Ml Btl IJ 11/07/23 23:59 100 ml DIRECTED EMILY Administration Sodium Chloride 50 ml 10/08/23 15:45 10/08/23 15:39 Normal Saline - Diluent 50 Ml Vial IJ 50 ml .FOR DI USE EMILY Administration IV IV Catheter Type [Right Saline Lock Antecubital] IV Catheter Gauge [Right 18 Antecubital] Diet Orders Category Date Time Status Heart Healthy Eating [DIET] Nutrition 10/09/23 Breakfast Ordered Diagnostics 10/08/23 10/08/23 10/08/23 Range/Units 21:00 19:03 17:22 WBC (4.4-10.8) 10^3/uL RBC (4.36-5.78) 10^6/uL Hgb (13.5-17.5) g/dL Hct (40.0-50.0) % MCV (80-95) fL MCH (27.0-33.0) pg MCHC (32.0-36.0) % RDW (11.8-14.1) % Plt Count (130-400) 10^3/uL MPV (8.0-11.0) fL Immature Gran % % Neutrophils % % Lymphocytes % % Monocytes % % Eosinophils % % Basophils % % Nucleated RBC % (0.0-0.3) % Absolute Neutrophils (1.2-6.7) 10^3/uL Absolute Lymphocytes (1.2-3.4) 10^3/uL Absolute Monocytes (0.1-0.8) 10^3/uL Absolute Eosinophils (0.0-0.7) 10^3/uL Absolute Basophils (0.0-0.2) 10^3/uL PT 10.6 (9.1-11.1) sec INR 1.1 (0.9-1.1) APTT 23.9 (23.6-32.8) sec Sodium (136-145) mmol/L Potassium (3.5-5.1) mmol/L Chloride (98-107) mmol/L Carbon Dioxide (21.0-32.0) mmol/L Anion Gap (3-11) mmol/L BUN (7-18) mg/dL Creatinine (0.70-1.30) mg/dL Est GFR (CKD-EPI 2020) (mL/min/1.73m2) Glucose (74-106) mg/dL Calcium (8.5-10.1) mg/dL Magnesium (1.8-2.4) mg/dL Total Bilirubin (0.2-1.0) mg/dL AST (15-37) U/L ALT (16-63) U/L Alkaline Phosphatase (46-116) U/L Troponin I Pending 80 H* (< or =60) ng/L Total Protein (6.4-8.2) g/dL Albumin (3.4-5.0) g/dL Lipase (16-77) U/L 10/08/23 Range/Units 14:39 WBC 8.33 (4.4-10.8) 10^3/uL RBC 5.24 (4.36-5.78) 10^6/uL Hgb 15.1 (13.5-17.5) g/dL Hct 45.6 (40.0-50.0) % MCV 87 (80-95) fL MCH 28.8 (27.0-33.0) pg MCHC 33.1 (32.0-36.0) % RDW 13.4 (11.8-14.1) % Plt Count 206 (130-400) 10^3/uL MPV 10.7 (8.0-11.0) fL Immature Gran % 0.4 % Neutrophils % 60.7 % Lymphocytes % 28.8 % Monocytes % 8.3 % Eosinophils % 1.3 % Basophils % 0.5 % Nucleated RBC % 0.0 (0.0-0.3) % Absolute Neutrophils 5.06 (1.2-6.7) 10^3/uL Absolute Lymphocytes 2.40 (1.2-3.4) 10^3/uL Absolute Monocytes 0.69 (0.1-0.8) 10^3/uL Absolute Eosinophils 0.11 (0.0-0.7) 10^3/uL Absolute Basophils 0.04 (0.0-0.2) 10^3/uL PT (9.1-11.1) sec INR (0.9-1.1) APTT (23.6-32.8) sec Sodium 144 (136-145) mmol/L Potassium 4.2 (3.5-5.1) mmol/L Chloride 107 (98-107) mmol/L Carbon Dioxide 29.8 (21.0-32.0) mmol/L Anion Gap 7.2 (3-11) mmol/L BUN 23 H (7-18) mg/dL Creatinine 1.2 (0.70-1.30) mg/dL Est GFR (CKD-EPI 2020) 67.95 (mL/min/1.73m2) Glucose 107 H (74-106) mg/dL Calcium 9.3 (8.5-10.1) mg/dL Magnesium 2.2 (1.8-2.4) mg/dL Total Bilirubin 1.53 H (0.2-1.0) mg/dL AST 21 (15-37) U/L ALT 31 (16-63) U/L Alkaline Phosphatase 82 (46-116) U/L Troponin I < 50 (< or =60) ng/L Total Protein 7.4 (6.4-8.2) g/dL Albumin 4.1 (3.4-5.0) g/dL Lipase 60 (16-77) U/L Intake and Output - 24 Hour Total 10/08/23 14:34 thru 10/08/23 14:36 Weight 103.873 kg Falls Risk Assessment History of Falls No History 10/08/23 14:48 Contributing Factors No Factors 10/08/23 14:48 Ambulatory Aids Independent 10/08/23 14:48 Tubes/Lines None 10/08/23 14:48 Gait Evaluation No gait disturbance 10/08/23 14:48 Fall Total Score 0 10/08/23 14:48 Level of Risk Standard/Low Risk 10/08/23 14:48 Problems (Last Reviewed 10/08/23 @ 20:02 by Joreg Alberto Minaya MD) Non-ST elevation [place] (NSTEMI) (Acute) v v v v v v v v v Sending and/or Receiving Nurses: Please use comment section below to note any information pertinent to the patient hand-off not included above. Information / Comments: Report received from: ady slaughter
[2023-10-08 21:46] LABS: Troponin I 177 ng/L (< or =60)
[2023-10-08] MEDS: LORazepam 0.5 MG TAB PO (21:59)
[2023-10-08] MEDS: Lactated Ringers 1,000 ML 75 ML IV (22:03)
[2023-10-09] VITALS (39 sets, daily range): BP systolic 110–140; BP diastolic 61–90; PULSE 42–58; RESP 4–17; TEMP 36.7; O2SAT 91–99
[2023-10-09 01:19] LABS: PTT Activated 59.9 sec (23.6-32.8)
[2023-10-09 06:30] LABS: PTT Activated 51.8 sec (23.6-32.8)
[2023-10-09 06:41] LABS: Troponin I 74 ng/L (< or =60)
--- NOTE | 2023-10-09 07:00 | RT.EKG_ITS ---
APPROVED REPORT Exam: Resting ECG Reason for Exam: NSTEMI Patient Location: I HR:44 bpm ECG Measurements Heart Rate 44 AXIS TX 177 P 30 QRSd 110 QRS -14 QT 508 T 104 QTc 435 Conclusion Sinus bradycardia...rate< [address]-T abnormalities
[2023-10-09] MEDS: Aspirin 325 MG TAB PO (08:01)
[2023-10-09] MEDS: Pantoprazole 40 MG TABCR PO (08:01)
--- NOTE | 2023-10-09 08:45 | PDOC.CMIN ---
Date of service: 10/09/23 Time of Service: 08:45 Care Management Initial Assmt Initial Assessment Reason for Hospitalization: NSTEMI Functional Status/Living Situation Town of Residence: [place] Resides with: Spouse ( Tara) Employment Status: Employed (builder) Instrumental Activities of Daily Living (ADLs): Independent Medications Medication Management: No Issues/Barriers identified Advance Directives Advance Directives: Do you have an Advance Directive: N 11/21/12 13:48 AD On File at [facility]: N 11/20/12 09:29 Date Asked 10/08/23 10/08/23 14:40 AD Date Reviewed COLST On File at [facility] COLST Date Scanned Code Status Resuscitation Status Full Code Insurance Coverage/Financial Issues ACO Member: No Care Team Visit Care Team Role Provider Type Rodriguez Nair NP Primary Care Provider NURSE PRACTITIONER Richmond Cronin MD Emergency Provider [facility] STAFF PHYSICIAN Jorge Alberto Minaya MD Admit Provider [facility] STAFF PHYSICIAN Attending Provider Discharge Potential Discharge Needs: PCP F/U Appt Anticipated Barriers to Discharge: Bed availability Patient/Family Education Needs: Review discharge instructions, discuss Ask Me Three Transportation: EMS Plan: Anticipate Desean will be transferred to [facility] for a cardiac cath when a bed becomes available. He will transport via EMS coordinated by the nursing line supervisor. CM will follow. PFSH All Active Problems (Updated 10/08/23 @ 21:06 by MICHAEL JOVEL) Non-ST elevation [place] (NSTEMI) (Acute) Chest pain (Acute) Elevated blood pressure reading (Acute) Wears hearing aid in both ears (Acute) Aspiration into airway (Acute) Chronic headaches (Acute) Skin lesion (Acute) Muller's esophagus (Acute ~07/2020) Major depression (Acute) Medication working GERD without esophagitis (Chronic 06/16/17) Medical History Kidney stone Epididymitis Lateral epicondylitis of left elbow Umbilical hernia (11/20/12) Sensorineural hearing loss, unilateral, left ear, with unrestricted hearing on the contralateral side (04/07/16) Multiple lipomas (04/02/15) Mild single current episode of major depressive disorder (04/07/16) Inguinal hernia (11/20/12) Hypercholesterolemia (02/01/08) Acute medial meniscus tear of right knee (08/10/16) tubular adenomas chronic back pain GERD (gastroesophageal reflux disease) Eczema Insomnia Surgical History History of colonoscopy (~08/2023) History of esophagogastroduodenoscopy (EGD) (~08/2023) EGD - MAC (07/25/17) Colonoscopy - MAC (07/25/17) Colonoscopy - IV Sedation 2009- adenomatous polyp 2011- no polyps Arthroplasty of knee pt. 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 DICK Family History Mother , 51 AGE Cancer Father , 76 Heart disease Myocardial infarction Maternal Uncle Colon cancer Maternal Cousin Colon cancer Sister No problems noted. Brother No problems noted. Maternal Grandfather No problems noted. Paternal Grandfather No problems noted. Maternal Grandmother No problems noted. Paternal Grandmother No problems noted. Maternal Aunt Colon cancer Brother No problems noted. Brother No problems noted. Son , age 6 weeks No problems noted. Daughter No problems noted. Social History Smoking/Tobacco Use Status: Former Tobacco Use tobacco type: cigarettes Quit Date: 03/27/84 Tobacco: How many years used: 10 Second Hand Exposure: Yes Smoking risk assessment performed?: Yes Alcohol Intake: former Drug use: Never Substance use type: does not use Household members: spouse Housing: house Communication Needs: None Do you need help understanding health information?: Never current occupation: SELF EMPLOYED [employer] Pets and animals: No Sexually active: Yes Do you think of yourself as: straight/heterosexual Current gender identity: male What is your relationship status?: How often do you talk on the phone with friends or family?: once per week How often do you get together with friends or relatives?: once per week How often do you attend mu-ism or zoroastrianism services?: 1-3 times per year Do you belong to any clubs or organized social groups?: no Panel score (0-1 are the most socially isolated patients): 1 What type of physical activity do you participate in: none Frequency: does not exercise Мария/Jainism: No preference Special мария needs: No Seatbelt use: sometimes Helmet use: No Drive intox or ride w/intox furniture delivery driver: No Water heater temp set <120 deg: Yes Do you feel safe at home: Yes Do you feel safe in your relationship?: Yes SDOH(Care Management) Screening Will the Patient Participate in the Screening?: Unable to obtain Do you worry about having a steady place to live?: no Problems where you live: no known problems In the past 12 months, have you had to go without electric, gas, oil or water in your home?: no Have you or anyone in your house had to go without enough food to eat?: no Has lack of transportation kept you from medical appointments or from doing things needed for daily living?: no Has anyone in your support network made you feel unsafe for any reason?: no
--- NOTE | 2023-10-09 10:30 | DI.US_ITS ---
APPROVED REPORT EXAM: Comprehensive 2D, Doppler, and color-flow Echocardiogram Patient Location: In-Patient Room/Bed: 221 Electrical Products Engineer: Patrick Patel RDCS (AE) Indications: NSTEMI Conclusion Normal left ventricular wall thickness and chamber size. Ejection fraction is 60 to 65%. Wall motio n is normal Normal right ventricular size and function Both atria are normal in size There is no structural or hemodynamically significant valvular disease Estimated right ventricular systolic pressure is 26 mmHg Wall motion Left Ventricle The left ventricle is normal size. The left ventricular systolic function is normal. The left ventric ular ejection fraction is within the normal range. There is normal left ventricular wall thickness. T here is normal LV segmental wall motion. There is no ventricular septal defect visualized. LVEF is 60 -65%. Right Ventricle The right ventricle is normal size. The right ventricular systolic function is normal. Atria The left atrium size is normal. The right atrium size is normal. The interatrial septum is intact wit h no evidence for an atrial septal defect. Aortic Valve The aortic valve is normal in structure. Aortic valve is trileaflet. There is no aortic valvular sten osis. No aortic regurgitation is present. Mitral Valve The mitral valve is normal in structure. No evidence of mitral valve stenosis. Trace mitral regurgita tion. Tricuspid Valve The tricuspid valve is normal in structure. There is no tricuspid valve stenosis. Mild tricuspid regu rgitation. The RVSP is 26.3 mmHg. Pulmonic Valve The pulmonary valve is normal in structure. There is no pulmonic valvular stenosis. There is no pulmo tenzin valvular regurgitation. Great Vessels The aortic root is normal in size. The ascending aorta is normal in size. Aortic arch is normal in ca liber. IVC is normal in size and collapses >50% with inspiration. Pericardium There is no pericardial effusion. 2D Dimensions IVSD d PLAX 0.88 cm M: 0.6-1.2 Ao Root d 3.25 cm M: 3.1 - 3.7 LVPW d PLAX 0.88 cm M: 0.6 - 1.2 Ao Asc Diam d 3.46 cm M: 2.6 - 3.4 LVID d PLAX 5.34 cm M: 4.2 - 5.8 LVDs 3.43 cm M: 2.5 - 4.0 LV EF Teichholz 64.7 % FS 35.69 % LV EDV (Teich) 137.7 mL LV ESV (Teich) 48.6 mL Stroke Vol Index (Teich) 39.78 M-Mode TAPSE 3.15 cm (M/F) >1.7 Auto EF LV EDV A4C 190.1 mL LV EDV A2C 147.7 mL LV EDV BP 170.6 mL LV ESV A4C 72.1 mL LV ESV A2C 59.5 mL LV ESV BP 64.0 mL LVEF(%) A4C 62.1 % LVEF(%) A2C 59.7 % LVEF(%) BP 62.5 % LV SV A4C 118.0 ml LV SV A2C 88.2 ml LV SV BP 106.6 ml LV CO A4C 6.0 L/min LV CO A2C 4.7 L/min LV CO BP 5.3 L/min HR A4C 50.64 BPM HR A2C 53.49 BPM LV EDV Index (BP) LA Volume LA Length A4C 6.0 cm LA Length A2C 5.8 cm LA Area A4C s 18.78 cm2 LA Area A2C s 22.43 cm2 LA Vol A4C A-L 50.14 mL LA Vol A2C A-L 74.12 mL LA Vol Biplane A-L 62.1 mL LA Vol/BSA A4C A-L LA Vol/BSA A2C A-L LA Vol/BSA BP A-L 27.7 mL/m2 LA Vol A4C MOD 46.3 mL LA Vol A2C MOD 70.2 mL LA Vol BP MOD 57.4 mL RA Volume RA Area A4C 11.3 cm2 RA ESV A4C (A-L) 21.4mL RA Vol/BSA A4C A-L RA Length A4C 5.1 cm RA ESV A4C (MOD) 20.5mL LV Diastology MV E' medial 0.056 (>0.07 m/s) MV E Vmax 0.57 (0.4-1.3 m/s) MV E/E' MED 10.09 (<14) MV A Vmax 0.75 (0.4-1.3 m/s) MV E' lateral 0.071 (>0.1 m/s) E/A Ratio 0.8 MV E/E' LAT 7.94 (<14) MV E' Average 0.064 m/s MV E/E'(average) 8.89 Aortic Valve AoV Vmax 1.12 m/s LVOT Vmax 0.82 m/s AoV Peak Grad 5.0 mmHg LVOT Peak Grad 2.7 mmHg AoV Area (Vmax) 3.12 cm2 LVOT VTI 0.250 m AoV VTI 0.328 m LVOT Mean Grad 1.4 mmHg AoV Mean Eros. 0.80 m/s LVOT SV 106.30 mL AoV Mean Grad 2.8 mmHg LVOT Diam s 2.30 cm AoV Area (VTI) 3.24 cm2 Velocity Ratio 0.73 Mitral Valve MV DT 417 (160-240 msec) Pulmonary Valve PV Vmax 1.08 (0.5-1.5 m/s) RVOT Vmax 0.53 m/s PV Peak Grad 4.7 mmHg RVOT Peak Gr. 1.1 mmHg PV Mean Eros 0.68 m/s RVOT VTI 0.141 m PV Mean Grad 2.2 mmHg RVOT Mean Gr. 0.6 mmHg Tricuspid Valve RA Pressure 3.00 mmHg TR Vmax 2.41 m/s TR Peak Grad 23.2 mmHg RVSP (TR) 26.3 mmHg
--- NOTE | 2023-10-09 10:34 | PHACLINREV_ITS ---
Pharmacy Admission Review Admission Clinical Review Admission Pharmacy Review: Non-ST elevation AR (NSTEMI) (Acute) No Known Allergies Allergy (Verified 08/28/23 08:28) Resuscitation Status Full Code Height 5 ft 11 in Weight 104.7 kg Comments Comments/Follow Ups: [place] [facility] [place] Review Renal Dosing Renal Dosing: BUN 23 mg/dL (7-18) H 10/08/23 14:39 Creatinine 1.2 mg/dL (0.70-1.30) 10/08/23 14:39 CrCl~77ml/min Medications needing adjustments: N/A Anticoagulation Anticoagulation: Hgb 15.1 g/dL (13.5-17.5) 10/08/23 14:39 Hct 45.6 % (40.0-50.0) 10/08/23 14:39 Plt Count 206 10^3/uL (130-400) 10/08/23 14:39 INR 1.1 (0.9-1.1) 10/08/23 19:03 Creatinine 1.2 mg/dL (0.70-1.30) 10/08/23 14:39 Therapeutic Anticoagulation: Reviewed (Heparin infusion and Aspirin 325mg daily) Relevant Labs Relevant Labs: Sodium 144 mmol/L (136-145) 10/08/23 14:39 Potassium 4.2 mmol/L (3.5-5.1) 10/08/23 14:39 Chloride 107 mmol/L (98-107) 10/08/23 14:39 Magnesium 2.2 mg/dL (1.8-2.4) 10/08/23 14:39 Cardiac Review Cardiac Review: Troponin I 74 ng/L (< or =60) H* 10/09/23 06:10 Asymptomatic BP, HR, EF%: Reviewed (BP 118/70, HR 51 (LR infusing @ 75ml/hr) ) QTc Review QTc: Reviewed List meds needing interventions: Qtc 435 Home Meds Home Med List reviewed: Reviewed (Home med list states not taking Lexapro, removed from list) Comments Comments/Follow Ups: [place] [facility] [place]
[2023-10-09] MEDS: Heparin in 0.45% NaCl 25,000 UNIT/250 ML BAG 12 UNIT IV (11:31)
[2023-10-09] MEDS: Lactated Ringers 1,000 ML 75 ML IV (11:34)
--- NOTE | 2023-10-09 14:31 | W.PM.DS.N ---
Date of service: 10/09/23 Time of Service: 14:31 DS: Diagnosis Discharge Diagnosis (1) Non-ST elevation NC (NSTEMI): Status: Acute Discharge Plan Disposition Patient Disposition: Transfer-Acute Inpatient Care Specific Acute Inpt Facility: [facility] Condition: Stable Discharge Details Reason For Visit: NSTEMI Admit Date/Time: 10/08/23 20:07 Admit Provider: Jorge Alberto Minaya Attending Provider: Jorge Alberto Minaya Primary Care Provider: Rodriguez Nair Hospital Course Hospital Course: Patient initially presented to the hospital signs and symptoms that were ultimately determined to be secondary to NSTEMI. [facility] was consulted and they recommended treatment dose aspirin, and heparin drip but to forego dual and platelet therapy. During hospitalization patient remained chest pain-free but was noted to have bradycardia while sleeping with heart rates into the high 30s. Otherwise patient remained hemodynamically stable and was ultimately determined to be stable for discharge to [facility] for left heart catheterization for NSTEMI Home Meds and New Rx's Prescriptions: Continued triamcinolone acetonide 0.5 % cream 1 applic topical BID Qty: 15 0RF escitalopram oxalate 10 mg tablet 10 mg PO DAILY Qty: 90 4RF No Action omeprazole 40 mg capsule,delayed release(DR/EC) 40 mg PO QAM Patient Comments: pt. only takes in AM Discharge Instructions Activity:: Activity as Tolerated Equipment/Supplies:: No Equipment Needed Diet:: As Tolerated Discharge Orders Discharge Orders: Discharge Order (Routine); Ordered 10/09/23 Ordered By: Braxton Iqbal DS: Summary Time Spent with Patient providing and/or coordinating discharge services: Greater than 30 minutes Status at Discharge Functional status at discharge: independent ambulation Overall status at discharge: patient is back to baseline Mental Status: mental status grossly normal Speech and Movement: speech and movement normal Mood: congruent mood Affect: normal affect Quality:SDOH Health Related Social Needs: Health related social needs inadequate housing Health related social needs details none Exam Narrative Exam Narrative: well appearing gentleman laying in bed in no acute distress, AOx4, heart RRR, lungs CTAB, abdomen soft, non-tender, non-distended Psych Mental Status: mental status grossly normal Speech and Movement: speech and movement normal Mood: congruent mood Affect: normal affect DS: Data Vitals/I&O Vitals and I&O: Vital Signs Temperature 98.1 F 10/09/23 08:03 Temperature Source Temporal Artery Scan 10/09/23 07:00 Pulse 42 L 10/09/23 10:01 Pulse 42 L 10/09/23 12:00 Respiratory Rate 10 L 10/09/23 12:00 Respiratory Effort Normal 10/09/23 12:35 Respiratory Depth Normal 10/09/23 12:35 Respiratory Pattern Normal 10/09/23 12:35 Blood Pressure 121/85 10/09/23 10:01 Blood Pressure Mean 96 10/09/23 10:01 Blood Pressure Position Supine 10/09/23 07:00 Pulse Oximetry 96 10/09/23 12:35 Oxygen Delivery Method Room Air 10/09/23 12:35 Oxygen Flow Rate 0 10/09/23 12:35 Pain Level 0 10/09/23 12:35 Comment vitals documented under capture monitor vital signs 10/09/23 12:02 Intake & Output 10/08/23 10/09/23 10/09/23 17:59 05:59 17:59 Intake Total 1526.75 / 1526.75 625.45 / 625.45 Output Total 900 / 900 600 / 600 Balance 626.75 / 626.75 25.45 / 25.45 Weight 229 lb 230 lb 13.184 oz Intake: IV 646.75 / 646.75 525.45 / 525.45 Oral 880 / 880 100 / 100 Output: Urine 900 / 900 600 / 600 Other: Urine Color Yellow Pale Urine Appearance Clear Clear Urine Odor None None Comment independently using urinal in room Voiding Methods Urinal Urinal Data Completed and Pending Labs on day of discharge: Labs from last 24 hours 10/09/23 10/09/23 10/08/23 06:10 01:00 21:15 WBC RBC Hgb Hct MCV MCH MCHC RDW Plt Count MPV Immature Gran % Neutrophils % Lymphocytes % Monocytes % Eosinophils % Basophils % Nucleated RBC % Absolute Neutrophils Absolute Lymphocytes Absolute Monocytes Absolute Eosinophils Absolute Basophils PT INR APTT 51.8 H 59.9 H Sodium Potassium Chloride Carbon Dioxide Anion Gap BUN Creatinine Est GFR (CKD-EPI 2020) Glucose Calcium Magnesium Total Bilirubin AST ALT Alkaline Phosphatase Troponin I 74 H* 177 H* Total Protein Albumin Lipase 10/08/23 10/08/23 10/08/23 19:03 17:22 14:39 WBC 8.33 RBC 5.24 Hgb 15.1 Hct 45.6 MCV 87 MCH 28.8 MCHC 33.1 RDW 13.4 Plt Count 206 MPV 10.7 Immature Gran % 0.4 Neutrophils % 60.7 Lymphocytes % 28.8 Monocytes % 8.3 Eosinophils % 1.3 Basophils % 0.5 Nucleated RBC % 0.0 Absolute Neutrophils 5.06 Absolute Lymphocytes 2.40 Absolute Monocytes 0.69 Absolute Eosinophils 0.11 Absolute Basophils 0.04 PT 10.6 INR 1.1 APTT 23.9 Sodium 144 Potassium 4.2 Chloride 107 Carbon Dioxide 29.8 Anion Gap 7.2 BUN 23 H Creatinine 1.2 Est GFR (CKD-EPI 2020) 67.95 Glucose 107 H Calcium 9.3 Magnesium 2.2 Total Bilirubin 1.53 H AST 21 ALT 31 Alkaline Phosphatase 82 Troponin I 80 H* < 50 Total Protein 7.4 Albumin 4.1 Lipase 60 PFSH All Active Problems (Updated 10/08/23 @ 21:06 by MICHAEL JOVEL) Non-ST elevation NC (NSTEMI) (Acute) Chest pain (Acute) Elevated blood pressure reading (Acute) Wears hearing aid in both ears (Acute) Aspiration into airway (Acute) Chronic headaches (Acute) Skin lesion (Acute) Muller's esophagus (Acute ~07/2020) Major depression (Acute) Medication working GERD without esophagitis (Chronic 06/16/17) Medical History Kidney stone Epididymitis Lateral epicondylitis of left elbow Umbilical hernia (11/20/12) Sensorineural hearing loss, unilateral, left ear, with unrestricted hearing on the contralateral side (04/07/16) Multiple lipomas (04/02/15) Mild single current episode of major depressive disorder (04/07/16) Inguinal hernia (11/20/12) Hypercholesterolemia (02/01/08) Acute medial meniscus tear of right knee (08/10/16) tubular adenomas chronic back pain GERD (gastroesophageal reflux disease) Eczema Insomnia Surgical History History of colonoscopy (~08/2023) History of esophagogastroduodenoscopy (EGD) (~08/2023) EGD - MAC (07/25/17) Colonoscopy - MAC (07/25/17) Colonoscopy - IV Sedation 2009- adenomatous polyp 2011- no polyps Arthroplasty of knee pt. 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 DICK Family History Mother , 51 AGE Cancer Father , 76 Heart disease Myocardial infarction Maternal Uncle Colon cancer Maternal Cousin Colon cancer Sister No problems noted. Brother No problems noted. Maternal Grandfather No problems noted. Paternal Grandfather No problems noted. Maternal Grandmother No problems noted. Paternal Grandmother No problems noted. Maternal Aunt Colon cancer Brother No problems noted. Brother No problems noted. Son , age 6 weeks No problems noted. Daughter No problems noted. Social History Smoking/Tobacco Use Status: Former Tobacco Use tobacco type: cigarettes Quit Date: 03/27/84 Tobacco: How many years used: 10 Second Hand Exposure: Yes Smoking risk assessment performed?: Yes Alcohol Intake: former Drug use: Never Substance use type: does not use Household members: spouse Housing: house Communication Needs: None Do you need help understanding health information?: Never current occupation: SELF EMPLOYED [employer] Pets and animals: No Sexually active: Yes Do you think of yourself as: straight/heterosexual Current gender identity: male What is your relationship status?: How often do you talk on the phone with friends or family?: once per week How often do you get together with friends or relatives?: once per week How often do you attend muslim or temple services?: 1-3 times per year Do you belong to any clubs or organized social groups?: no Panel score (0-1 are the most socially isolated patients): 1 What type of physical activity do you participate in: none Frequency: does not exercise Мария/Anabaptist: No preference Special мария needs: No Seatbelt use: sometimes Helmet use: No Drive intox or ride w/intox local company flatbed truck driver: No Water heater temp set <120 deg: Yes Do you feel safe at home: Yes Do you feel safe in your relationship?: Yes Time Spent with Patient Time Spent with Patient: <45 minutes Time was spent: preparing to see the patient(eg.review tests), obtaining and/or reviewing separately [facility], ordering medications,tests, procedures, referring, communicating with other health personal care home administrator, indepentently interpreting results, counseling the patient and care coordination
[2023-10-09 15:15] LABS: PTT Activated 78.9 sec (23.6-32.8)
== END 2023-10-09 15:35 | disposition short-term general hospital (02) | DRG 282 ==
LOC: ER 20:28 → ICU 10-09 07:31
PROVIDERS: Family Medicine; Admitting Provider General Practice; Emergency Provider Emergency Medicine; PCP Nurse Practitioner Family; Visit Provider General Practice
DX: I21.4 Non-ST elevation (NSTEMI) myocardial infarction (principal); R00.1 Bradycardia, unspecified; F32.9 Major depressive disorder, single episode, unspecified; K21.9 Gastro-esophageal reflux disease without esophagitis; H90.42 Sensorineural hearing loss, unilateral, left ear, with unrestricted hearing on the contralateral side; E78.00 Pure hypercholesterolemia, unspecified; G47.00 Insomnia, unspecified; L30.9 Dermatitis, unspecified; Z79.899 Other long term (current) drug therapy
CPT/HCPCS: 00123; 36415; 71275; 80053; 83690; 93005; 96365; 96366; 99285; 83735; 84484; 85025; 85610; 85730; 93010; 93306; 99222; 99238; G0378; J1644; J3490

== ENCOUNTER 2023-10-25 06:12 | Emergency (ER) | payer BC, SELFPAY ==
--- NOTE | 2023-10-25 06:00 | RT.EKG_ITS ---
APPROVED REPORT Exam: Resting ECG Reason for Exam: SOB Patient Location: E HR:75 bpm ECG Measurements Heart Rate 75 AXIS AR 148 P 42 QRSd 106 QRS -15 QT 381 T 37 QTc 425 Conclusion Sinus rhythm...normal P axis, V-rate 60- 99 Probable left atrial enlargement...P >50mS, <-0.10mV V1 Physician: no stemi
[2023-10-25 06:15] VITALS: BP 139/93; PULSE 98; TEMP 36.9; O2SAT 96
[2023-10-25 06:33] VITALS: BP 137/83; PULSE 90; RESP 20; TEMP 36.8; O2SAT 94
[2023-10-25 06:48] LABS: Abs Immature Grans 0.06 10^3/uL (0.0-0.06); Absolute Basophil Count 0.05 10^3/uL (0.0-0.2); Absolute Eosinophil Count 0.25 10^3/uL (0.0-0.7); Absolute Lymphocyte Count 1.99 10^3/uL (1.2-3.4); Absolute Monocyte Count 0.81 10^3/uL (0.1-0.8); Absolute Neutrophil Count 7.79 10^3/uL (1.2-6.7); Basophils % 0.5 %; Eosinophils % 2.3 %; HCT 41.6 % (40.0-50.0); HGB 13.4 g/dL (13.5-17.5); Immature Grans % 0.5 %; Lymphocytes % 18.2 %; MCH 28.6 pg (27.0-33.0); MCHC 32.2 % (32.0-36.0); MCV 89 fL (80-95); MPV 9.5 fL (8.0-11.0); Monocytes % 7.4 %; Neutrophils % 71.1 %; Platelet Count 339 10^3/uL (130-400); RBC 4.68 10^6/uL (4.36-5.78); RDW 13.5 % (11.8-14.1); RDW-SD 43.7 fL; WBC 10.95 10^3/uL (4.4-10.8)
[2023-10-25] MEDS: MORPHine 4 MG/ML SYR IVP ×2 (06:49→08:36)
[2023-10-25] MEDS: Lidocaine 5% Patch 1 PATCH (06:50)
--- NOTE | 2023-10-25 07:00 | W.ED.GENAD ---
Discharge Plan Discharge Details Chief Complaint: SOB Clinical Impression: Right-sided chest pain Primary Care Provider: Rodriguez Nair ED Provider: Karthik Lucas Home Meds and New Rx's Prescriptions: No Action aspirin [Lu Low Dose Aspirin] 81 mg tablet,delayed release (DR/EC) 81 mg PO DAILY clopidogrel [Plavix] 75 mg tablet 75 mg PO DAILY atorvastatin 40 mg tablet 40 mg PO DAILY metoprolol tartrate 50 mg tablet 50 mg PO BID oxycodone 5 mg tablet 5 mg PO Q8H PRN (Reason: Surgical pain) Patient Comments: As needed every 8 hours acetaminophen 325 mg capsule 975 mg PO Q6H PRN Rx Instructions: per [facility] [place] HPI General Date/Time Provider Initiated Documentation: 10/25/23 06:15. HPI Narrative: This is a very pleasant 63-year-old male with a past medical history of depression, GERD, Muller's esophagus, distant tobacco use, who just had a four-vessel bypass on 10/13/2023 who presents today for evaluation of chest pain. Patient is currently on aspirin and Plavix, and had been doing very well postoperatively, he was at home, yesterday he did have an episode of a sneeze that was not caught well with his pillow. He had no significant pain at that time though. And then late last night he developed a sudden sharp onset of right-sided chest pain in the right lower chest. It is pleuritic. It is only present with breathing. It is not reproducible. He denies any cough. He does admit to a fever last night that was independent of this pain. Tmax was 99, he did get slightly sweaty and warm for about 1 to 2 hours and then those symptoms resolved. He denies numbness tingling or weakness. No personal history of blood clots or PEs in the past. No history of pneumothoraces. No other complaints at this time. No other modifying factors. Related Data Home Medications ?Medication ?Instructions ?Recorded ?Confirmed aspirin 81 mg tablet,delayed 81 mg PO DAILY 10/18/23 10/25/23 release (Lu Low Dose Aspirin) atorvastatin 40 mg tablet 40 mg PO DAILY 10/18/23 10/25/23 clopidogrel 75 mg tablet (Plavix) 75 mg PO DAILY 10/18/23 10/25/23 metoprolol tartrate 50 mg tablet 50 mg PO BID 10/18/23 10/25/23 oxycodone 5 mg tablet 5 mg PO Q8H PRN Surgical pain 10/18/23 10/25/23 acetaminophen 325 mg capsule 975 mg PO Q6H PRN 10/19/23 10/25/23 Allergies Allergy/AdvReac Type Severity Reaction Status Date / Time No Known Allergies Allergy Verified 10/25/23 06:30 General Stated Complaint: SOB MARTITA: 3 Review of Systems All systems reviewed & are unremarkable except as noted in HPI and below Exam Narrative Exam Narrative: 1.Const: Well-nourished, Well-developed, appearing stated age 2.Eyes: PERRL, no conjunctival injection, and symmetrical lids. 3.ENT: Atraumatic external nose and ears. Moist MM. Neck: Symmetric, trachea midline, No thyromegaly. 4.CVS: +S1/S2, No murmurs or gallops. Peripheral pulses 2+ and equal in all extremities. Brisk capillary refill in all extremities. Radial pulses +2 bilaterally. 5.RESP: Unlabored respiratory effort. Clear to auscultation bilaterally. No wheezes rales or rhonchi. Postoperative incision site is clean dry and intact. No redness. No drainage. No reproducible chest pain in the right lower chest. 6.GI: Soft, Nontender/Nondistended, No hepatosplenomegaly. No guarding or rebound. 7.MSK: Normocephalic/Atraumatic, Extremities w/o deformity or ttp No cyanosis or clubbing, Normal movement of all extremities 8.Skin: Warm, Dry. No rashes or lesions. 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 Sensation grossly intact, no focal neurologic deficits. 10.Psych: (AAO) x3. Appropriate mood and affect Course Vital Signs Vital signs: Vital Signs Temperature 36.9 C 10/25/23 06:15 Pulse 98 H 10/25/23 06:15 Blood Pressure 139/93 H 10/25/23 06:15 Pulse Oximetry 96 10/25/23 06:15 Temperature 36.8 C 10/25/23 06:33 Pulse 90 10/25/23 06:33 Respiratory Rate 20 10/25/23 06:33 Respiratory Effort Normal, Non-Labored 10/25/23 06:27 Respiratory Depth Normal 10/25/23 06:27 Respiratory Pattern Normal 10/25/23 06:27 Blood Pressure 137/83 10/25/23 06:33 Pulse Oximetry 94 10/25/23 06:33 Oxygen Delivery Method Room Air 10/25/23 06:33 Oxygen Flow Rate 0 10/25/23 06:15 Pain Level 10 10/25/23 06:49 Lab/Test Results Lab/Test Results: Laboratory Tests Range/Units 10/25/23 06:35 WBC (4.4-10.8) 10^3/uL 10.95 H RBC (4.36-5.78) 10^6/uL 4.68 Hgb (13.5-17.5) g/dL 13.4 L Hct (40.0-50.0) % 41.6 MCV (80-95) fL 89 MCH (27.0-33.0) pg 28.6 MCHC (32.0-36.0) % 32.2 RDW (11.8-14.1) % 13.5 Plt Count (130-400) 10^3/uL 339 MPV (8.0-11.0) fL 9.5 Immature Gran % % 0.5 Neutrophils % % 71.1 Lymphocytes % % 18.2 Monocytes % % 7.4 Eosinophils % % 2.3 Basophils % % 0.5 Nucleated RBC % (0.0-0.3) % 0.0 Absolute Neutrophils (1.2-6.7) 10^3/uL 7.79 H Absolute Lymphocytes (1.2-3.4) 10^3/uL 1.99 Absolute Monocytes (0.1-0.8) 10^3/uL 0.81 H Absolute Eosinophils (0.0-0.7) 10^3/uL 0.25 Absolute Basophils (0.0-0.2) 10^3/uL 0.05 Medical Decision Making This is a very pleasant 63-year-old male with a past medical history of depression, GERD, Muller's esophagus, distant tobacco use, who just had a four-vessel bypass on 10/13/2023 who presents today for evaluation of chest pain. Patient is currently on aspirin and Plavix, and had been doing very well postoperatively, he was at home, yesterday he did have an episode of a sneeze that was not caught well with his pillow. He had no significant pain at that time though. And then late last night he developed a sudden sharp onset of right-sided chest pain in the right lower chest. It is pleuritic. It is only present with breathing. It is not reproducible. He denies any cough. He does admit to a fever last night that was independent of this pain. Tmax was 99, he did get slightly sweaty and warm for about 1 to 2 hours and then those symptoms resolved. He denies numbness tingling or weakness. No personal history of blood clots or PEs in the past. No history of pneumothoraces. No other complaints at this time. No other modifying factors. Physical exam demonstrates clear lungs, good oxygenation, no hypoxemia. No crackles or rhonchi that I can auscultate. Lung sounds are equal bilaterally. No reproducible chest wall pain. Bedside limited ultrasound shows good lung sliding bilaterally, no large pericardial effusion. Concern for PE, pneumonia, pulmonary infarct, or muscle strain. With the patient's risk factors, we will get a CTA of the chest, will treat with Lidoderm patch, will monitor closely and reassess. Patient will be signed out to my colleague Dr. Cronin for follow-up on labs and imaging. EKG shows no evidence of STEMI. Quality:SDOH Health Related Social Needs: Health related social needs inadequate housing Health related social needs details none PFSH All Active Problems (Updated 10/25/23 @ 07:09 by Karthik Lucas DO) Right-sided chest pain (Acute) Non-ST elevation DC (NSTEMI) (Acute) Chest pain (Acute) Elevated blood pressure reading (Acute) Wears hearing aid in both ears (Acute) Aspiration into airway (Acute) Chronic headaches (Acute) Skin lesion (Acute) Muller's esophagus (Acute ~07/2020) Major depression (Acute) Medication working GERD without esophagitis (Chronic 06/16/17) Medical History Kidney stone Epididymitis Lateral epicondylitis of left elbow Umbilical hernia (11/20/12) Sensorineural hearing loss, unilateral, left ear, with unrestricted hearing on the contralateral side (04/07/16) Multiple lipomas (04/02/15) Mild single current episode of major depressive disorder (04/07/16) Inguinal hernia (11/20/12) Hypercholesterolemia (02/01/08) Acute medial meniscus tear of right knee (08/10/16) tubular adenomas chronic back pain GERD (gastroesophageal reflux disease) Eczema Insomnia Surgical History History of quadruple bypass September 2023 History of colonoscopy (~08/2023) History of esophagogastroduodenoscopy (EGD) (~08/2023) EGD - MAC (07/25/17) Colonoscopy - MAC (07/25/17) Colonoscopy - IV Sedation 2009- adenomatous polyp 2011- no polyps Arthroplasty of knee pt. 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 DICK Family History Mother , 51 AGE Cancer Father , 76 Heart disease Myocardial infarction Maternal Uncle Colon cancer Maternal Cousin Colon cancer Sister No problems noted. Brother No problems noted. Maternal Grandfather No problems noted. Paternal Grandfather No problems noted. Maternal Grandmother No problems noted. Paternal Grandmother No problems noted. Maternal Aunt Colon cancer Brother No problems noted. Brother No problems noted. Son , age 6 weeks No problems noted. Daughter No problems noted. Social History Smoking/Tobacco Use Status: Former Tobacco Use tobacco type: cigarettes Quit Date: 03/27/84 Tobacco: How many years used: 10 Second Hand Exposure: Yes Smoking risk assessment performed?: Yes Alcohol Intake: former Drug use: Never Substance use type: does not use Household members: spouse Housing: house Communication Needs: None Do you need help understanding health information?: Never current occupation: SELF EMPLOYED [employer] Pets and animals: No Sexually active: Yes Do you think of yourself as: straight/heterosexual Current gender identity: male What is your relationship status?: How often do you talk on the phone with friends or family?: once per week How often do you get together with friends or relatives?: once per week How often do you attend baptist or yarsanism services?: 1-3 times per year Do you belong to any clubs or organized social groups?: no Panel score (0-1 are the most socially isolated patients): 1 What type of physical activity do you participate in: none Frequency: does not exercise Мария/Advent: No preference Special мария needs: No Seatbelt use: sometimes Helmet use: No Drive intox or ride w/intox canal driver: No Water heater temp set <120 deg: Yes Do you feel safe at home: Yes Do you feel safe in your relationship?: Yes POCUS Exam (ED) Limited Cardiac Exam DATE OF EXAM: 10/25/23 TIME OF EXAM: 07:06 PROVIDER THAT PERFORMED THE STUDY: Karthik Lucas IS THIS A REPEAT EXAM DURING THIS ENCOUNTER: no REASON FOR EXAM: Chest pain VISUALIZED STRUCTURES: Left atrium, Left ventricle, Right ventricle and Mitral valve VIEW OBTAINED: Parasternal long-axis PERTINENT FINDINGS/IMPRESSION: No apparent abnormalities Exam complete Limited Thoracic Lung Exam DATE OF EXAM: 10/25/23 TIME OF EXAM: 07:07 PROVIDER THAT PERFORMED THE STUDY: Karthik Lucas IS THIS A REPEAT EXAM DURING THIS ENCOUNTER: No REASON FOR EXAM: Shortness ofBreath VISUALIZED STRUCTURES: right anterior and left anterior PERTINENT FINDINGS/IMPRESSION: No apparent abnormalities; lung sliding left side and lung sliding left side Exam complete
[2023-10-25 07:11] LABS: INR 1.1 (0.9-1.1); PTT Activated 27.1 sec (23.6-32.8); Prothrombin Time 11.4 sec (9.1-11.1)
[2023-10-25 07:13] LABS: ALT 38 U/L (16-63); AST 17 U/L (15-37); Albumin 3.4 g/dL (3.4-5.0); Alkaline Phosphatase 109 U/L (46-116); Anion Gap 9.1 mmol/L (3-11); BUN 13 mg/dL (7-18); Bilirubin, Total 0.91 mg/dL (0.2-1.0); CO2 28.9 mmol/L (21.0-32.0); CREATININE 0.9 mg/dL (0.70-1.30); Calcium 9.4 mg/dL (8.5-10.1); Chloride 102 mmol/L (98-107); Estimated GFR 95.37 (mL/min/1.73m2); Glucose 114 mg/dL (74-106); NT-proBNP 134 pg/mL (<300); Potassium 4.3 mmol/L (3.5-5.1); Sodium 140 mmol/L (136-145); Total Protein 7.8 g/dL (6.4-8.2); Troponin I < 50 ng/L (< or =60)
[2023-10-25] MEDS: Normal Saline - Diluent 50 ML VIAL IJ (07:37)
[2023-10-25] MEDS: Omnipaque 350 MG/ML 100 ML BTL IJ (07:40)
--- NOTE | 2023-10-25 07:51 | DI.CT_ITS ---
Exam(s) CT CHEST PE CTA EXAM: CT CHEST PE CTA CLINICAL HISTORY: right chest pain, post cabg, eval for PE. TECHNIQUE: Imaging Protocol: Axial CT angiography was performed with multi-slice acquisition and mu lti-planar reconstructions as well as axial, coronal and sagittal MIP reconstructions. CONTRAST MATERIAL: Intravenous: Omnipaque 350 Contrast volume:100 ml COMPARISON: CT CT CHEST PE CTA from 10/08/2023 FINDINGS: Exam limited by streak artifact, expiratory changes and mild motion at the lung bases. Pulmonary Arteries: Emboli noted in right lower lobe branches. Also question of small emboli in left lower lobe branches. Tracheobronchial tree: No mucous plugging. Mediastinum and Radha: No dominant adenopathy or fluid collection. Pulmonary parenchyma: Basilar atelectasis. Mild upper lobe emphysematous changes. Pleura: Small left tiny right pleural effusion. Heart: Status post CABG. No pericardial effusion. Heart size normal. Aorta: Thoracic aorta non-dilated. No dissection. Upper abdomen: No acute findings. Bones: Unremarkable for age. Sternal wires. Tubes, Catheters, and Lines: None Soft tissues: Unremarkable. IMPRESSION: Emboli in right lower lobe branches. No evidence of right heart strain. Question of additional smal l emboli in left lower lobe branches. Exam limited by motion and technical artifact. RADIATION DOSE DELIVERED: Total DLP DATA REPOSITORY: All CT scans at this facility are submitted to the National Radiology Data Registry (NRDR) Dose Index Registry (DIR) with the [employer] (ACR). RADIATION OPTIMIZATION: All CT scans at this facility use at least one of these dose optimization te chniques: automated exposure control; mA and/or kV adjustment per patient size (includes targeted exa ms where dose is matched to clinical indication); or iterative reconstruction.
--- NOTE | 2023-10-25 08:08 | DI.VRAD_ITS ---
Addendum created by Maninder Love MD on 10/25/2023 8:13:54 AM EDT: THIS REPORT CONTAINS FINDINGS THAT MAY BE CRITICAL TO PATIENT CARE. The findings were verbally communicated via telephone conference with LIANNE VILLEGAS at 8:13 AM EDT on 10/25/2023. The findings were acknowledged and understood. Initial report created on 10/25/2023 8:07:40 AM EDT: PROCEDURE INFORMATION: Exam: CTA Chest With Contrast Exam date and time: 10/25/2023 7:35 AM Age: 63 years old Clinical indication: Other: Right chest pain, post cabg, eval for pe; Prior surgery; Surgery date: <1 month TECHNIQUE: Imaging protocol: Computed tomographic angiography of the chest with contrast. Exam focused on the arteries. 3D rendering (Not supervised by radiologist): MIP and/or 3D reconstructed images were created by the technologist. Contrast material: OMNIPAQUE 350; Contrast volume: 100 ml; Contrast route: INTRAVENOUS (IV); COMPARISON: CT CHEST PE CTA 10/08/2023 3:41 PM FINDINGS: Pulmonary arteries: Filling defect in the inter lobar artery extending into the right lower lobe segmental branches. Small pulmonary emboli in the left lower lobe not excluded. No large central pulmonary emboli Aorta: No aortic aneurysm. No aortic dissection. Lungs: Mild subsegmental atelectasis. Pleural spaces: Small left and minimal right pleural effusions No pneumothorax. Heart: Post CABG. No cardiomegaly. No pericardial effusion. Lymph nodes: No enlarged lymph nodes. Bones/joints: No acute fracture. Soft tissues: Unremarkable. Right renal cyst partially visualized IMPRESSION: Right-sided pulmonary emboli as described. Small left lower lobe pulmonary emboli not excluded. No large central pulmonary emboli. No CT evidence for cardiac strain Left greater than right pleural effusions and mild subsegmental atelectasis Dictated and Authenticated by: Maninder Love MD. Ordering:KIKE Angeles MD
--- NOTE | 2023-10-25 08:21 | W.EDPROG ---
Date of service: 10/25/23 Time of Service: 08:22 Medical Decision Making Patient stable, CT shows small right sided PE and lower lobe where the patient having pain. Discussed results with him. His PESI score is 74 which is low risk for 30-day mortality. Discussed starting Eliquis and discharging versus admission and patient would like to be treated as an outpatient at this time and has medical decision-making capacity. Given low Pesi score and hemodynamic stability feel this is reasonable. Will also again discussed with him after second troponin. Patient stable, delta troponin negative. Discussed again with him and offered admission but he declines which I feel is reasonable. He will follow-up with his PCP and return precautions given. Imaging Data Radiologic Study: Attestation: I personally reviewed and interpreted this imaging study as follows: Imaging: CT Scan Radiologist's impression: IMPRESSION: Right-sided pulmonary emboli as described. Small left lower lobe pulmonary emboli not excluded. No large central pulmonary emboli. No CT evidence for cardiac strain Left greater than right pleural effusions and mild subsegmental atelectasis Lab Data Lab results reviewed: Yes I reviewed the patient's lab results. 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 Follow-up on CT imaging. Last updated by Karthik Lucas DO at 10/25/23 07:30 Discharge Plan Disposition Patient Disposition: Home Condition: Stable Discharge Details Clinical Impression: Right-sided chest pain, Pulmonary embolism Primary Care Provider: Rodriguez Nair ED Provider: Richmond Cronin Home Meds and New Rx's Prescriptions: New Eliquis DVT-PE Treat 30D Start 5 mg (74 tabs) tablets,dose pack See Rx Instructions .ROUTE .COMPLEX Qty: 74 0RF Rx Instructions: orally per package directions Continued aspirin [Lu Low Dose Aspirin] 81 mg tablet,delayed release (DR/EC) 81 mg PO DAILY clopidogrel [Plavix] 75 mg tablet 75 mg PO DAILY atorvastatin 40 mg tablet 40 mg PO DAILY metoprolol tartrate 50 mg tablet 50 mg PO BID oxycodone 5 mg tablet 5 mg PO Q8H PRN (Reason: Surgical pain) Patient Comments: As needed every 8 hours acetaminophen 325 mg capsule 975 mg PO Q6H PRN Rx Instructions: per [facility] discharge Discharge Instructions Additional Instructions: You are found to have a small blood clot on the right side your lung which can happen after any surgery. I would recommend following up with your primary care provider within 1 to 2 weeks You can take 1000 mg of acetaminophen every 6 hours as needed Return to the emergency department if you feel more ill, have severe worsening pain despite your prescribed oxycodone or feels significantly short of breath.
[2023-10-25] MEDS: Apixaban 5 MG TAB 10 MG PO (08:35)
[2023-10-25 09:49] LABS: Troponin I < 50 ng/L (< or =60)
[2023-10-25 10:26] VITALS: BP 135/85; PULSE 81; RESP 18; TEMP 36.9; O2SAT 95
== END 2023-10-25 10:26 | disposition home or self-care (01) ==
PROVIDERS: Student in an Organized Health Care Education/Training Program; Emergency Provider Emergency Medicine; PCP Nurse Practitioner Family
DX: R07.9 Chest pain, unspecified (principal); I26.99 Other pulmonary embolism without acute cor pulmonale; E78.00 Pure hypercholesterolemia, unspecified; Z95.1 Presence of aortocoronary bypass graft; Z79.02 Long term (current) use of antithrombotics/antiplatelets; Z79.82 Long term (current) use of aspirin; Z87.891 Personal history of nicotine dependence
CPT/HCPCS: 00123; 36415; 71275; 76604; 80053; 93005; 93308; 96374; 96376; 99285; 83880; 84484; 85025; 85610; 85730; 93010; 99284; J2270; J3490

== ENCOUNTER 2023-11-20 10:39 | Outpatient (RCR) | payer BC, SELFPAY ==
--- NOTE | 2023-11-20 10:30 | RT.EKG_ITS ---
APPROVED REPORT Exam: Resting ECG Reason for Exam: CR intake Patient Location: O HR:52 bpm ECG Measurements Heart Rate [address] 167 P 66 QRSd 107 QRS 31 QT 464 T 42 QTc 432 Conclusion Sinus rhythm...normal P axis, V-rate 50- 99 Possible inferior infarct, old...Q >35mS, II III aVF
== END 2023-11-25 23:59 | disposition home or self-care (01) ==
LOC: CR 10:39
PROVIDERS: PCP Nurse Practitioner Family; Visit Provider Internal Medicine Cardiovascular Disease
DX: I21.3 ST elevation (STEMI) myocardial infarction of unspecified site (principal); Z51.89 Encounter for other specified aftercare
CPT/HCPCS: S9472

== ENCOUNTER 2023-12-01 10:54 | Outpatient (CLI) | payer BC, SELFPAY ==
--- NOTE | 2023-12-01 10:45 | RT.EKG_ITS ---
APPROVED REPORT Exam: Resting ECG Reason for Exam: hx [place] Patient Location: O HR:55 bpm ECG Measurements Heart Rate 55 AXIS UT 168 P 10 QRSd 106 QRS -17 QT 463 T 30 QTc 443 Conclusion Sinus rhythm...normal P axis, V-rate 50- 99 Probable left atrial enlargement...P >50mS, <-0.10mV V1
== END 2023-12-01 10:55 | disposition home or self-care (01) ==
LOC: DI.CARD 10:55
PROVIDERS: PCP Nurse Practitioner Family; Visit Provider Internal Medicine Cardiovascular Disease
DX: I21.4 Non-ST elevation (NSTEMI) myocardial infarction (principal); R03.0 Elevated blood-pressure reading, without diagnosis of hypertension
CPT/HCPCS: 93010

== ENCOUNTER 2023-12-25 08:08 | Outpatient (RCR) | payer BC, SELFPAY | END 2023-12-25 23:59 | disposition home or self-care (01) | LOC: CR 08:08 | PROVIDERS: PCP Nurse Practitioner Family; Visit Provider Internal Medicine Cardiovascular Disease | DX: I21.4 Non-ST elevation (NSTEMI) myocardial infarction (principal); Z51.89 Encounter for other specified aftercare | CPT/HCPCS: S9472 ==

== ENCOUNTER 2023-12-27 08:16 | Outpatient (RCR) | payer BC, SELFPAY | END 2024-01-25 23:59 | disposition home or self-care (01) | LOC: CR 08:16 | PROVIDERS: PCP Nurse Practitioner Family; Visit Provider Internal Medicine Cardiovascular Disease | DX: I21.4 Non-ST elevation (NSTEMI) myocardial infarction (principal); I25.810 Atherosclerosis of coronary artery bypass graft(s) without angina pectoris; Z51.89 Encounter for other specified aftercare | CPT/HCPCS: S9472 ==

== ENCOUNTER 2024-03-29 11:02 | Outpatient (CLI) | payer BC, SELFPAY ==
--- NOTE | 2024-03-29 11:00 | RT.EKG_ITS ---
APPROVED REPORT Exam: Resting ECG Reason for Exam: Chest discomfort Patient Location: O HR:60 bpm ECG Measurements Heart Rate 60 AXIS WI 165 P 13 QRSd 105 QRS -27 QT 430 T 27 QTc 430 Conclusion Sinus rhythm...normal P axis, V-rate 50- 99 Possible inferior infarct, old...Q >35mS, II III aVF
== END 2024-03-29 11:03 | disposition home or self-care (01) ==
LOC: DI.CARD 11:03
PROVIDERS: PCP Nurse Practitioner Family; Visit Provider Internal Medicine Cardiovascular Disease
DX: I21.4 Non-ST elevation (NSTEMI) myocardial infarction (principal)
CPT/HCPCS: 93010

== ENCOUNTER 2024-07-02 10:09 | Outpatient (CLI) | payer BC, SELFPAY ==
--- NOTE | 2024-07-02 10:00 | DI.RAD_ITS ---
Exam(s) XR SHOULDER LT COMPLETE 2+V EXAM: XR SHOULDER LT COMPLETE 2+V CLINICAL HISTORY: fall with shoulder injury, W19.XXXA. TECHNIQUE: 2D digital imaging was performed of the left shoulder. Five images were obtained. AP, G rashey, Y-view and axillary views were obtained. COMPARISON: No exams were available for comparison FINDINGS: BONES: No acute fracture is present. No bony destructive lesion is seen. JOINTS: No dislocation present. There are mild degenerative changes at the acromioclavicular joint. The glenohumeral joint is well maintained. SOFT TISSUE: There are postsurgical changes of a CABG. IMPRESSION: No acute fracture or dislocation. DATA REPOSITORY: RADIATION DOSE DELIVERED:
== END 2024-07-02 10:29 ==
LOC: DI 10:09
PROVIDERS: PCP Nurse Practitioner Family; Visit Provider Nurse Practitioner Family
DX: W19.XXXA Unspecified fall, initial encounter (principal); S49.92XA Unspecified injury of left shoulder and upper arm, initial encounter
CPT/HCPCS: 73030

== ENCOUNTER 2024-08-13 01:20 | Outpatient (CLI) | payer BC, SELFPAY ==
--- NOTE | 2024-08-13 13:56 | DI.MRI_ITS ---
Exam(s) MR UPPER JOINT LT WO EXAM: MR UPPER JOINT LT WO CLINICAL HISTORY: L SHOULDER PAIN, traumatic tear l rotator cuff, S46.012A S49.92XA,INJURY. TECHNIQUE: Multiplanar multisequence MRI was performed. COMPARISON: Plain films of the left shoulder 02 July 2024 FINDINGS: The exam is mildly limited by motion. BONES: Small degenerative cysts in the greater tuberosity. JOINTS:The acromioclavicular joint shows mild spurring and some high signal. The glenohumeral joint is normal. TENDONS: Supraspinatus: Unremarkable thickening and intermediate signal in the anterior distal portion of the tendon. Infraspinatus: Unremarkable. Subscapularis: Unremarkable. Teres Minor: Unremarkable. Biceps and [place]: Small amount of fluid around biceps tendon but no visible tear. MUSCLES: Unremarkable. GLENOID LABRUM: Unremarkable on this noncontrast examination. SOFT TISSUES: Unremarkable. BURSAE: Subacromial and subdeltoid bursae shows a minimal amount of fluid.. IMPRESSION: Tendinosis of the anterior portion of the supraspinatus tendon. DATA REPOSITORY:
== END 2024-08-13 01:40 ==
LOC: DI 01:20
PROVIDERS: PCP Nurse Practitioner Family; Visit Provider Student in an Organized Health Care Education/Training Program
DX: S46.012D Strain of muscle(s) and tendon(s) of the rotator cuff of left shoulder, subsequent encounter (principal); S49.92XD Unspecified injury of left shoulder and upper arm, subsequent encounter; X58.XXXD Exposure to other specified factors, subsequent encounter
CPT/HCPCS: 73221

== ENCOUNTER 2024-08-13 09:55 | Outpatient (CLI) | payer BC, SELFPAY ==
[2024-08-13 10:31] LABS: Calculated LDL 57 mg/dL (<100); Cholesterol 100 mg/dL (<200); HDL Cholesterol 35 mg/dL (>or=40); Hemoglobin A1C 5.8 % (<5.7); Triglyceride 44 mg/dL (<150)
== END 2024-08-13 09:56 | disposition home or self-care (01) ==
LOC: LBO 09:56
PROVIDERS: PCP Nurse Practitioner Family; Visit Provider Nurse Practitioner Family
DX: Z13.220 Encounter for screening for lipoid disorders (principal); Z13.1 Encounter for screening for diabetes mellitus
CPT/HCPCS: 36415; 80061; 83036

== ENCOUNTER → 2024-10-17 10:22 | Outpatient (BNVA) | payer MEDICARE, SELFPAY | PROVIDERS: PCP Nurse Practitioner Family; Visit Provider Internal Medicine Cardiovascular Disease | DX: I25.810 Atherosclerosis of coronary artery bypass graft(s) without angina pectoris (principal) | CPT/HCPCS: 99213 ==

== ENCOUNTER → 2024-10-29 08:17 | Outpatient (BNVA) | payer MEDICARE, SELFPAY | PROVIDERS: PCP Nurse Practitioner Family; Visit Provider Student in an Organized Health Care Education/Training Program | DX: M94.212 Chondromalacia, left shoulder (principal); M67.922 Unspecified disorder of synovium and tendon, left upper arm | CPT/HCPCS: 99213 ==